=== PATIENT | female | born 1940 | race Caucasian/White ===

== ENCOUNTER 2022-12-08 15:07 | Inpatient (IN) | payer MEDICARE, BC ==
--- NOTE | 2022-12-08 15:17 | ED ---
General Adult HPI <Shirley Kaur - Last Filed: 12/08/22 15:17> <Huy Odell - Last Filed: 12/08/22 19:35> - General Stated complaint: Back pain Time Seen by Provider: 12/08/22 15:17 - History of Present Illness Initial comments: 82-year-old female presents to the emergency department with a chief complaint of chronic back pain. Denies any recent injury or trauma. (Shirley Kaur) This is an 82-year-old female presents emergency department stating that she's had chronic back pain but more recently she was having some physical therapy done and she had her knee pushed up towards her chest and she felt a pop in her back and her since that she's been having excruciating back pain to the point where she has pain running down both of her legs but mostly right leg. Patient states it so painful that she hasn't been drinking or eating because she is afraid she'll have to go to the bathroom and be unable to get up. Patient states she sleeps in a recliner chair and she sleeps forward to help relieve the pain in her back so she falls asleep laying across her own legs. Patient denies any other injury besides the injury occurring to her physical therapy. Patient denies any weakness but states there is pain in both legs going down the back. Patient states she had an MRI recently but does not have the results with her. Patient denies any fever chills. Patient has any dysuria hematuria urinary frequency. (Huy Odell) - Related Data Home Medications Medication Instructions Recorded Confirmed Levothyroxine Sodium [Synthroid] 75 mcg PO 11/19/22 Pioglitazone [Actos] 45 mg PO DAILY 11/19/22 11/19/22 amLODIPine BESYLATE/BENAZEPRIL 1 cap PO 11/19/22 [amLODIPine BESYLATE/BENAZEPRIL 5-10 mg] metFORMIN HCL [Metformin HCl] 500 mg PO 11/19/22 Allergies Allergy/AdvReac Type Severity Reaction Status Date / Time clindamycin Allergy Unknown Verified 12/08/22 15:18 gabapentin [From Neurontin] Allergy Unknown Verified 12/08/22 15:18 Sulfa (Sulfonamide Allergy Unknown Verified 12/08/22 15:18 Antibiotics) glue on teristrips Allergy Unknown Uncoded 12/08/22 15:18 Review of Systems ROS Other: All systems not noted in ROS Statement are negative. <Shirley Kaur - Last Filed: 12/08/22 15:17> ROS Other: All systems not noted in ROS Statement are negative. <Huy Odell - Last Filed: 12/08/22 19:35> ROS Statement: Those systems with pertinent positive or pertinent negative responses have been documented in the HPI. Past Medical History History of Any Multi-Drug Resistant Organisms: None Reported Smoking Status: Never smoker <Shirley Kaur - Last Filed: 12/08/22 15:17> General Exam <Huy Odell - Last Filed: 12/08/22 19:35> - General Exam Comments Initial Comments: GENERAL: Patient is well-developed and well-nourished. Patient is nontoxic and well- hydrated and is moderate distress. ENT: Neck is soft and supple. No significant lymphadenopathy is noted. Oropharynx is clear. Moist mucous membranes. Neck has full range of motion without eliciting any pain. EYES: The sclera were anicteric and conjunctiva were pink and moist. Extraocular movements were intact and pupils were equal round and reactive to light. Eyelids were unremarkable. PULMONARY: Unlabored respirations. Good breath sounds bilaterally. No audible rales r honchi or wheezing was noted. CARDIOVASCULAR: There is a regular rate and rhythm without any murmurs gallops or rubs. ABDOMEN: Soft and nontender with normal bowel sounds. SKIN: Skin is clear with no lesions or rashes and otherwise unremarkable. NEUROLOGIC: Patient is alert and oriented x3. Cranial nerves II through XII are grossly intact. Motor and sensory are also intact. Normal speech, volume and content. Symmetrical smile. MUSCULOSKELETAL: Normal extremities with adequate strength and full range of motion. 1+ edema bilaterally LYMPHATICS: No significant lymphadenopathy is noted PSYCHIATRIC: Normal psychiatric evaluation. [id number] (Huy Odell) Course Vital Signs 12/08/22 15:15 Temperature 97.6 F Pulse Rate 89 Respiratory 20 Rate Blood Pressure 165/85 O2 Sat by Pulse 97 Oximetry Medical Decision Making - Lab Data Result diagrams: 12/08/22 18:30 12/08/22 18:30 <Huy Odell - Last Filed: 12/08/22 19:35> - Medical Decision Making Was pt. sent in by a medical professional or institution (, JOSAFAT, LAUNCH ENGINEER, urgent care, hospital, or senior living...) When possible be specific @ -Dr. Espinoza sent the patient to be admitted Did you speak to anyone other than the patient for history (EMS, parent, family, police, friend...)? What history was obtained from this source @ -No Did you review nursing and triage notes (agree or disagree)? Why? @ -I reviewed and agree with nursing and triage notes Were old charts reviewed (outside hosp., previous admission, EMS record, old EKG, old radiological studies, urgent care reports/EKG's, senior living records)? Report findings @ -No old charts were reviewed Differential Diagnosis (chest pain, altered mental status, abdominal pain women, abdominal pain men, vaginal bleeding, weakness, fever, dyspnea, syncope, headache, dizziness, GI bleed, back pain, seizure, CVA, palpatations, mental health, musculoskeletal)? @ -Differential Back Pain: Strain, zoster, cauda equina syndrome, epidural abscess, vertebral osteomyelitis, discitis, fracture, subluxation, disc herniation, DJD, spinal stenosis, dissection, AAA, pancreatitis, peptic ulcer disease, pyelonephritis, kidney stone, this is not meant to be an all-inclusive list. EKG interpreted by me (3pts min.). @ -As above X-rays interpreted by me (1pt min.). @ -None done CT interpreted by me (1pt min.). @ -None done U/S interpreted by me (1pt. min.). @ -None done What testing was considered but not performed or refused? (CT, X-rays, U/S, labs)? Why? @ -None What meds were considered but not given or refused? Why? @ -None Did you discuss the management of the patient with other professionals (professionals i.e. , JOSAFAT, LAUNCH ENGINEER, lab, RT, psych nurse, social media director, fresh foods technician, teacher, chief risk officer, case folder)? Give summary @ -Spoke with Dr. Munoz he agreed to admit the patient admitted the patient wrote admitting orders Was smoking cessation discussed for >3mins.? @ -No Was critical care preformed (if so, how long)? @ -No Were there social determinants of health that impacted care today? How? (Homele ssness, low income, unemployed, alcoholism, drug addiction, transportation, low edu. Level, literacy, decrease access to med. care, [facility], rehab)? @ -No Was there de-escalation of care discussed even if they declined (Discuss DNR or withdrawal of care, Hospice)? DNR status @ -No What co-morbidities impacted this encounter? (DM, HTN, Smoking, COPD, CAD, Cancer, CVA, ARF, Chemo, Hep., AIDS, mental health diagnosis, sleep apnea, morbid obesity)? @ -None Was patient admitted / discharged? Hospital course, mention meds given and route, prescriptions, significant lab abnormalities, going to OR and other pertinent info. @ -Patient received Toradol Solu-Medrol as well as Dilaudid for her pain and helped her pain certainly. I spoke with [facility] hospitalist agreed to admit the patient admitted. I consulted Dr. Herron to evaluate the patient. I spoke with these diminished Undiagnosed new problem with uncertain prognosis? @ -No Drug Therapy requiring intensive monitoring for toxicity (Heparin, Nitro, Insulin, Cardizem)? @ -No Were any procedures done? @ -No Diagnosis/symptom? @ -Intractable lower back pain Acute, or Chronic, or Acute on Chronic? @ -Acute on chronic Uncomplicated (without systemic symptoms) or Complicated (systemic symptoms)? @ -Complicated Side effects of treatment? @ -No Exacerbation, Progression, or Severe Exacerbation? @ -No Poses a threat to life or bodily function? How? (Chest pain, [place], [place], pneumonia, PE, COPD, DKA, ARF, appy, cholecystitis, CVA, Diverticulitis, Homicidal, Suicidal, threat to staff... and all critical care pts) @ -No (Huy Odell) - Lab Data Lab Results 12/08/22 12/08/22 12/08/22 Range/Units 17:54 18:30 18:30 WBC 4.3 (3.8-10.6) k/uL RBC 4.21 (3.80-5.40) m/uL Hgb 13.7 (11.4-16.0) gm/dL Hct 41.3 (34.0-46.0) % MCV 98.0 (80.0-100.0) fL MCH 32.5 (25.0-35.0) pg MCHC 33.1 (31.0-37.0) g/dL RDW 13.9 (11.5-15.5) % Plt Count 237 (150-450) k/uL MPV 7.8 Neutrophils % 70 % Lymphocytes % 17 % Monocytes % 8 % Eosinophils % 2 % Basophils % 1 % Neutrophils # 3.1 (1.3-7.7) k/uL Lymphocytes # 0.7 L (1.0-4.8) k/uL Monocytes # 0.3 (0-1.0) k/uL Eosinophils # 0.1 (0-0.7) k/uL Basophils # 0.0 (0-0.2) k/uL Sodium 139 (137-145) mmol/L Potassium 4.1 (3.5-5.1) mmol/L Chloride 104 (98-107) mmol/L Carbon Dioxide 31 H (22-30) mmol/L Anion Gap 4 mmol/L BUN 18 H (7-17) mg/dL Creatinine 0.66 (0.52-1.04) mg/dL Est GFR (CKD-EPI)AfAm >90 (>60 ml/min/1.73 sqM) Est GFR (CKD-EPI)NonAf 81 (>60 ml/min/1.73 sqM) Glucose 111 H (74-99) mg/dL Calcium 9.6 (8.4-10.2) mg/dL Total Bilirubin 0.9 (0.2-1.3) mg/dL AST 39 H (14-36) U/L ALT 27 (4-34) U/L Alkaline Phosphatase 55 (38-126) U/L Total Protein 7.0 (6.3-8.2) g/dL Albumin 4.1 (3.5-5.0) g/dL Urine Color Light Yellow Urine Appearance Clear (Clear) Urine pH 6.5 (5.0-8.0) Ur Specific [place] 1.008 (1.001-1.035) Urine Protein Negative (Negative) Urine Glucose (UA) Negative (Negative) Urine Ketones Negative (Negative) Urine Blood Negative (Negative) Urine Nitrite Negative (Negative) Urine Bilirubin Negative (Negative) Urine Urobilinogen <2.0 (<2.0) mg/dL Ur Leukocyte Esterase Negative (Negative) Disposition <Shirley Kaur - Last Filed: 12/08/22 15:17> Time of Disposition: 19:35 <Huy Odell - Last Filed: 12/08/22 19:35> Clinical Impression: Intractable back pain Disposition: ADMITTED IP TO THIS HOSP Referrals: Adriano Espinoza MD [Primary Care Provider] - 1-2 days
[2022-12-08 18:08] LABS: Appearance,Urine Clear (Clear); Bilirubin,Urine Negative (Negative); Blood,Urine Negative (Negative); Color,Urine Light Yellow; Glucose,Urine (UA) Negative (Negative); Ketones,Urine Negative (Negative); Leukocyte Esterase,Urine Negative (Negative); Nitrite,Urine Negative (Negative); PH, Urine 6.5 (5.0-8.0); Protein,Urine Negative (Negative); Specific Gravity,Urine 1.008 (1.001-1.035); Urobilinogen,Urine <2.0 mg/dL (<2.0)
[2022-12-08] MEDS ORDERED: KETOROLAC 15 MG/ML 1 ML VIAL IVP STA (18:18)
[2022-12-08] MEDS ORDERED: HYDROmorphone 0.5 MG/0.5 ML SYRINGE IVP STA (18:18)
[2022-12-08 18:47] LABS: Basophils % (A) 1 %; Eosinophils # (A) 0.1 k/uL (0-0.7); Eosinophils % (A) 2 %; HCT 41.3 % (34.0-46.0); HGB 13.7 gm/dL (11.4-16.0); Lymphocytes # (A) 0.7 k/uL (1.0-4.8); Lymphocytes % (A) 17 %; MCH 32.5 pg (25.0-35.0); MCHC 33.1 g/dL (31.0-37.0); Mean Platelet Volume 7.8; Monocytes # (A) 0.3 k/uL (0-1.0); Monocytes % (A) 8 %; Neutrophils # (A) 3.1 k/uL (1.3-7.7); Neutrophils % (A) 70 %; Platelet Count 237 k/uL (150-450); RBC 4.21 m/uL (3.80-5.40); RDW 13.9 % (11.5-15.5); WBC 4.3 k/uL (3.8-10.6)
[2022-12-08 19:08] LABS: ALT 27 U/L (4-34); AST 39 U/L (14-36); African American GFR (CKD) >90 (>60 ml/min/1.73 sqM); Albumin 4.1 g/dL (3.5-5.0); Alkaline Phosphatase 55 U/L (38-126); Anion Gap 4 mmol/L; Blood Urea Nitrogen 18 mg/dL (7-17); Calcium 9.6 mg/dL (8.4-10.2); Carbon Dioxide 31 mmol/L (22-30); Chloride 104 mmol/L (98-107); Glucose 111 mg/dL (74-99); Non-African American GFR(CKD) 81 (>60 ml/min/1.73 sqM); Potassium 4.1 mmol/L (3.5-5.1); Sodium 139 mmol/L (137-145); Total Bilirubin 0.9 mg/dL (0.2-1.3)
[2022-12-08] MEDS ORDERED: methylPREDNISolone SOD SUCCI 125 MG/2 ML VIAL IV STA (19:31)
[2022-12-08] MEDS ORDERED: SODIUM CHLORIDE 0.9% 1,000 ML IV ONE (19:36)
[2022-12-09] MEDS: KETOROLAC 15 MG/ML 1 ML VIAL IVP SCH ×5 (00:48→23:28)
[2022-12-09] MEDS ORDERED: traMADol 50 MG TAB PO PRN (01:00)
[2022-12-09] MEDS ORDERED: DEXTROSE 50% SYRINGE 50 ML IVP PRN ×2 (01:02)
[2022-12-09] MEDS: LEVOTHYROXINE 75 MCG TAB PO SCH (06:34)
[2022-12-09] MEDS ORDERED: FAMOTIDINE 20 MG/2 ML VIAL IV SCH (09:00)
[2022-12-09] MEDS: INSULIN ASPART (NovoLOG) 100 UNIT/ML VIAL SQ SCH ×4 (09:00→21:38)
[2022-12-09 09:01] LABS: Glucose,Whole Blood 136 mg/dL (70-110)
[2022-12-09] MEDS: amLODIPine 5 MG TAB PO SCH (09:13)
[2022-12-09] MEDS: HEPARIN SODIUM,PORCINE/PF 5,000 UNIT/0.5 ML SYRINGE SQ SCH ×2 (09:13→21:34)
[2022-12-09] MEDS: metFORMIN 500 MG TAB PO SCH ×2 (09:13→21:35)
[2022-12-09] MEDS: LOSARTAN 50 MG TAB PO SCH (09:13)
[2022-12-09] MEDS: CHOLECALCIFEROL 25 MCG (1000 IU) TABLET PO SCH ×2 (09:13→21:36)
--- NOTE | 2022-12-09 09:13 | P.CNOR ---
History of Present Illness - [facility] Consult date: 12/09/22 Requesting physician: Huy Odell Consult reason: low back pain, other (Bilateral lower extremity radiculopathy) History of present illness: Patient is a very pleasant 82-year-old female who is seen and examined bedside for further evaluation of her lumbar spine. She states she has a history of a right total knee arthroplasty performed by Dr. Menezes in January 2022. She had some difficulty working through physical therapy following surgery. She was discharged to a rehabilitation facility but did not get to work through therapy due to Covid. She was discharged home. She's been trying to work through some exercises at home. She's been working through home physical therapy. She states a couple weeks ago while working with therapy her legs were brought up towards her chest and she felt a pop at her lumbar spine. Since that time she has had severe and worsening low back pain with pain radiating down the posterior bilateral lower extremities greater on the right than the left. She is difficulty with standing due to her back pain. She has to lean forward to al leviate some of her pain. She lives independently without difficulty until exacerbation of her symptoms. She does not have specific exacerbation of pain with coughing or sneezing. Her pain is better controlled at rest. Her back pain is exacerbated with increased activities. She does feel generally weak in her lower extremities greater on the right than the left. She has difficulty ambulating steps. She follows with her primary care provider, Dr. Espinoza. She saw her in the office yesterday and was sent to the hospital for admission and further evaluation. She's not had any imaging performed since her presentation to the emergency department. She states she is known have lumbar spinal stenosis and chronic low back pain. She recently had a lumbar MRI imaging performed in October 2022. She does not have this imaging with her. She was being referred to the pain management clinic here [facility] with her appointment set for 12/18/2022. She does state that the exacerbation of her symptoms with a pop in her back did occur following her lumbar MRI. She has been taking tramadol in the outpatient setting for pain control. She does admit to diabetes mellitus. She has a history of total knee arthroplasty performed on the left knee as well. Past Medical History Past Medical History: Diabetes Mellitus, Hypertension Additional Past Medical History / Comment(s): Back problems History of Any Multi-Drug Resistant Organisms: None Reported Past Surgical History: Hernia Repair, Joint Replacement, Orthopedic Surgery Additional Past Surgical History / Comment(s): Back Smoking Status: Never smoker Medications and Allergies Home Medications Medication Instructions Recorded Confirmed Type Levothyroxine Sodium [Synthroid] 75 mcg PO DAILY 11/19/22 12/08/22 History Pioglitazone [Actos] 45 mg PO DAILY 11/19/22 12/08/22 History metFORMIN HCL [Metformin HCl] 500 mg PO BID 11/19/22 12/08/22 History Acetaminophen [Tylenol 8 Hour] 650 mg PO Q6H PRN 12/08/22 12/08/22 History Ascorbic Acid [Vitamin C] 500 mg PO DAILY 12/08/22 12/08/22 History Calcium Carbonate [Calcium] 600 mg PO BID 12/08/22 12/08/22 History Cholecalciferol [Vitamin D3 (25 25 mcg PO BID 12/08/22 12/08/22 History Mcg = 1000 Iu)] Losartan Potassium 100 mg PO DAILY 12/08/22 12/08/22 History Meloxicam [Mobic] 7.5 mg PO BID 12/08/22 12/08/22 History Multivitamins, Thera [Multivitamin 1 tab PO DAILY 12/08/22 12/08/22 History (formulary)] Niacin [Plain Niacin] 500 mg PO HS 12/08/22 12/08/22 History Pyridoxine HCl (Vitamin B6) 100 mg PO DAILY 12/08/22 12/08/22 History [Vitamin B-6] Ubidecarenone [Coenzyme Q10] 100 mg PO DAILY 12/08/22 12/08/22 History Vitamin E (Dl,Tocopheryl Acet) 800 unit PO DAILY 12/08/22 12/08/22 History [Vitamin E (400 Iu = 180 mg)] amLODIPine [Norvasc] 5 mg PO DAILY 12/08/22 12/08/22 History timoloL maleate [timoloL maleate 1 applic BOTH EYES BID 12/08/22 12/08/22 History 0.25%] traMADol HCL 50 mg PO Q8H PRN 12/08/22 12/08/22 History Allergies Allergy/AdvReac Type Severity Reaction Status Date / Time clindamycin Allergy Anaphylaxis Verified 12/08/22 20:14 gabapentin [From Neurontin] Allergy Unknown Verified 12/08/22 20:14 pseudoephedrine Allergy Verified 12/08/22 20:14 [From Sudafed] Sulfa (Sulfonamide Allergy Unknown Verified 12/08/22 20:14 Antibiotics) glue on teristrips Allergy Unknown Uncoded 12/08/22 15:18 Physical Examination Physical exam: Patient is awake, alert, and oriented 3 Vital signs stable Good chest excursion with deep inspiration and expiration Abdomen soft nontender Examination of lumbar spine reveals skin is intact with no abrasions, lacer ations, or bruises; no erythema, purulence or signs of infection Significant pain with palpation along the midline of the lower lumbar spine near the lumbosacral junction Dorsiflexion, plantarflexion, and extensor hallucis longus positive sustained bilaterally Patient is unable to lift legs off the bed independently. Evidence of well-healed incisions over the anterior knees No lower extremity hyperreflexia bilaterally Negative Lasegue's test bilaterally No signs or symptoms of DVT; no calf pain No pain with internal and external rotation of the hips bilaterally Neurovascularly intact Results - Labs Labs: Abnormal Lab Results - Last 24 Hours (Table) 12/08/22 12/08/22 12/09/22 Range/Units 18:30 18:30 09:00 Lymphocytes # 0.7 L (1.0-4.8) k/uL Carbon Dioxide 31 H (22-30) mmol/L BUN 18 H (7-17) mg/dL Glucose 111 H (74-99) mg/dL POC Glucose (mg/dL) 136 H (70-110) mg/dL AST 39 H (14-36) U/L H & H 12/08/22 Range/Units 18:30 Hgb 13.7 (11.4-16.0) gm/dL Hct 41.3 (34.0-46.0) % Result Diagrams: 12/08/22 18:30 12/08/22 18:30 Assessment and Plan Assessment: Assessment: Acute on chronic low back pain Difficulty with ambulation due to lower extremity generalized weakness and leg pain Bilateral lower extremity radiculopathy Neurogenic claudication Reported known spinal stenosis Exacerbation of pain following home exercises with physical therapy Diabetes mellitus Obesity Hypothyroidism History of right total knee arthroplasty in January 2022 History of previous left total knee arthroplasty (1) Acute exacerbation of chronic low back pain Current Visit: Yes Status: Acute Code(s): M54.50 - LOW BACK PAIN, UNSPECIFIED; G89.29 - OTHER CHRONIC PAIN SNOMED Code(s): 519988387 (2) Neurogenic claudication Current Visit: Yes Status: Acute Code(s): R29.818 - OTHER SYMPTOMS AND SIGNS INVOLVING THE NERVOUS SYSTEM SNOMED Code(s): 590804878 (3) Radiculopathy with lower extremity symptoms Current Visit: Yes Status: Acute Code(s): M54.10 - RADICULOPATHY, SITE UNSPECIFIED SNOMED Code(s): 74322025 (4) Generalized weakness Current Visit: Yes Status: Acute Code(s): R53.1 - WEAKNESS SNOMED Code(s): 07439218 (5) Diabetes mellitus Current Visit: Yes Status: Acute Code(s): E11.9 - TYPE 2 DIABETES MELLITUS WITHOUT COMPLICATIONS SNOMED Code(s): 43384775 (6) Obesity Current Visit: Yes Status: Acute Code(s): E66.9 - OBESITY, UNSPECIFIED SNOMED Code(s): 350197451 (7) Hypothyroidism Current Visit: Yes Status: Acute Code(s): E03.9 - HYPOTHYROIDISM, UNSPECIFIED SNOMED Code(s): 01927302 (8) Intractable back pain Current Visit: Yes Status: Acute Code(s): M54.9 - DORSALGIA, UNSPECIFIED SNOMED Code(s): 590032159 Plan: Plan: 1. Patient is known have chronic low back pain and has an exacerbation of her pain following home therapy exercises a couple weeks ago. Her symptoms have continued to worsen since that time. She states she did have a pop at her lumbar spine with significant pain at the time of working through therapy. She has pain that radiates in the bilateral posterior lower extremities greater on the right and the left. She's had increased difficulty with pain control and ambulation. Her back pain has been significant and is her most significant symptom. Her pain is better controlled at rest and is exacerbated with increased activities. She previously had lumbar MRI imaging performed in October 2022 at [facility]. She was planning for further evaluation with pain management here at [facility] on 12/18/2022. No imaging was taken since her admission to the hospital. Currently, we will plan to obtain CT imaging of the lumbar spine for further evaluation to rule out fracture and further assess her spinal canal. We will plan for consultation with pain management. We did discuss if her CT imaging does not show evidence of fracture. Plan to have her to proceed forward with conservative treatment with pain we did discuss she will have a fracture of her lumbar spine would begin conservative treatment with bracing. We'll plan to review her CT imaging was performed L plan to proceed forward with a plan of care according to her CT results. Consultation will be placed with pain management here [facility]. 2. Patient will continue to be seen and examined by medicine for her other medical diagnoses. We will not currently plan to prescribe steroid medication during her admission to the hospital due to her diabetes mellitus and also wanting to rule out fracture. Patient may continue with medications as pre scribed as needed for pain control.
[2022-12-09] MEDS: CALCIUM CARBONATE 500 MG CHEWABLE PO SCH ×2 (09:14→21:38)
[2022-12-09] MEDS: HYDROmorphone 0.5 MG/0.5 ML SYRINGE IVP PRN ×2 (09:15→18:25)
[2022-12-09] MEDS ORDERED: DEXAMETHASONE SOD PHOSPHATE 10 MG/ML 1 ML VIAL IVP STA (10:21)
[2022-12-09] MEDS ORDERED: HYDROmorphone 1 MG/ML 1 ML SYRINGE IVP STA (10:21)
[2022-12-09] MEDS: PIOGLITAZONE 45 MG TAB PO SCH (10:30)
[2022-12-09] MEDS: TIMOLOL 0.25% OPHTH DROPS 5 ML BTL BOTH EYES SCH ×2 (10:31→21:35)
[2022-12-09] MEDS: PYRIDOXINE 50 MG TAB PO SCH (10:31)
--- NOTE | 2022-12-09 10:33 | P.HPIM ---
History of Present Illness This is a pleasant 82 results female with past medical history of Diabetes Mellitus, Hypertension, she is a patient of Dr. fu Patient presents because of back pain. Patient said that she has chronic low back pain and she went for physical therapy 3 weeks ago, about 2 weeks ago and the second consideration her orthopedic physical therapist try to increase her range of her movement so there is her leg up to the head and immediately she felt a pop sound in the lower back and more severe pain and lower back, radiating to both legs more on the right side than the left side, radiating down to the heel. With no associated numbness or tingling. She denies perineal anesthesia and she denies losing control of her bowel or urine control. About 20 to go while her daughter was visiting her, she almost fell to the chair, says that she is feeling more weakness in her legs, and again she says that she feels her right leg is weaker than the left. Her right leg pain and weakness today is with the same severity as one week earlier , she went to see her PCP Dr. Fu yesterday who referred her to the emergency room. She states that she has history of left neck pain when turning her head to the left side about 6 months ago and at times she had MRI of the cervical spine with her PCP Dr. Fu and she's been told she has a pinched nerve. Currently she still have some dull headache moderate in severity but no blurred vision or slurred speech, no tinnitus, no other new weakness or numbness. Patient follows up with pain in clinic as well, she states that she supposed to follow-up with pain doctor for epidural steroid injection and her appointment was on January 18 and was moved to December 18 because of her worsening pain and before coming to the hospital 0 Patient also noticed to live by herself as her daughters live far away, and she has difficulty taking care of herself because of that. She denies any other specific symptoms. She denies chest pain dyspnea or coughing. No abdominal pain vomiting and diarrhea, no dysuria urgency or burning. No dizziness or further weakness or numbness. Patient usually feels colder than usual. She denies smoking alcohol or illicit drugs Vitals looks stable She has unremarkable CBC, BMP, liver enzymes. Urine analysis is negative. Patient given pain medication of Toradol and Dilaudid and admitted to the hospital. With orthopedic team consulted Also she was started on normal saline Patient was seen by orthopedic team and sure if he had CAT scan of the lumbar spine with result is pending. Review of Systems Review of systems CONSTITUTIONAL: No fever, no malaise, no fatigue. HEENT: No recent visual problems or hearing problems. Denied any sore throat. CARDIOVASCULAR: No orthopnea, PND, no palpitations, no syncope. PULMONARY: No shortness of breath, no cough, no hemoptysis. GASTROINTESTINAL: No diarrhea, no nausea, no vomiting, no abdominal pain. Normoactive bowel sounds. NEUROLOGICAL: No headaches, no weakness, no numbness. HEMATOLOGICAL: Denies any bleeding or petechiae. GENITOURINARY: Denies any burning micturition, frequency, or urgency. -MUSCULOSKELETAL/RHEUMATOLOGICAL: As above, review the above note ENDOCRINE: Denies any polyuria or polydipsia. Past Medical History Past Medical History: Diabetes Mellitus, Hypertension Additional Past Medical History / Comment(s): Back problems History of Any Multi-Drug Resistant Organisms: None Reported Past Surgical History: Hernia Repair, Joint Replacement, Orthopedic Surgery Additional Past Surgical History / Comment(s): Back Smoking Status: Never smoker Medications and Allergies Home Medications Medication Instructions Recorded Confirmed Type Levothyroxine Sodium [Synthroid] 75 mcg PO DAILY 11/19/22 12/08/22 History Pioglitazone [Actos] 45 mg PO DAILY 11/19/22 12/08/22 History metFORMIN HCL [Metformin HCl] 500 mg PO BID 11/19/22 12/08/22 History Acetaminophen [Tylenol 8 Hour] 650 mg PO Q6H PRN 12/08/22 12/08/22 History Ascorbic Acid [Vitamin C] 500 mg PO DAILY 12/08/22 12/08/22 History Calcium Carbonate [Calcium] 600 mg PO BID 12/08/22 12/08/22 History Cholecalciferol [Vitamin D3 (25 25 mcg PO BID 12/08/22 12/08/22 History Mcg = 1000 Iu)] Losartan Potassium 100 mg PO DAILY 12/08/22 12/08/22 History Meloxicam [Mobic] 7.5 mg PO BID 12/08/22 12/08/22 History Multivitamins, Thera [Multivitamin 1 tab PO DAILY 12/08/22 12/08/22 History (formulary)] Niacin [Plain Niacin] 500 mg PO HS 12/08/22 12/08/22 History Pyridoxine HCl (Vitamin B6) 100 mg PO DAILY 12/08/22 12/08/22 History [Vitamin B-6] Ubidecarenone [Coenzyme Q10] 100 mg PO DAILY 12/08/22 12/08/22 History Vitamin E (Dl,Tocopheryl Acet) 800 unit PO DAILY 12/08/22 12/08/22 History [Vitamin E (400 Iu = 180 mg)] amLODIPine [Norvasc] 5 mg PO DAILY 12/08/22 12/08/22 History timoloL maleate [timoloL maleate 1 applic BOTH EYES BID 12/08/22 12/08/22 History 0.25%] traMADol HCL 50 mg PO Q8H PRN 12/08/22 12/08/22 History Allergies Allergy/AdvReac Type Severity Reaction Status Date / Time clindamycin Allergy Anaphylaxis Verified 12/08/22 20:14 gabapentin [From Neurontin] Allergy Unknown Verified 12/08/22 20:14 pseudoephedrine Allergy Verified 12/08/22 20:14 [From Sudafed] Sulfa (Sulfonamide Allergy Unknown Verified 12/08/22 20:14 Antibiotics) glue on teristrips Allergy Unknown Uncoded 12/08/22 15:18 Physical Exam Vitals: Vital Signs Temp Pulse Resp BP Pulse Ox 12/09/22 08:57 98 18 125/76 97 12/09/22 06:33 75 14 137/76 95 12/09/22 04:25 84 14 94 L 12/09/22 01:38 89 18 95 12/08/22 15:15 97.6 F 89 20 165/85 97 Intake and Output 12/08/22 12/09/22 12/09/22 22:59 06:59 14:59 Other: Weight 108.862 kg -GENERAL: The patient is alert and oriented x3, not in any acute distress. Morbidly obese HEENT: Pupils are round and equally reacting to light. EOMI. No scleral icterus. No conjunctival pallor. Normocephalic, atraumatic. No pharyngeal erythema. No thyromegaly. CARDIOVASCULAR: S1 and S2 present. No murmurs, rubs, or gallops. PULMONARY: Chest is clear to auscultation, no wheezing or crackles. ABDOMEN: Soft, nontender, nondistended, normoactive bowel sounds. No palpable organomegaly. MUSCULOSKELETAL: No joint swelling or deformity. EXTREMITIES: No cyanosis, clubbing, or pedal edema. -NEUROLOGICAL: Cranial nerves are grossly intact. Rest of exam is limited by patient pain, she has some limited addressing her right leg secondary to pain, there was no more mild weakness on the right lower extremity. There is mild decreased sensation in the left lower extremity and leak, meningeal signs are absent. SKIN: No rashes. no petechiae. Results CBC & Chem 7: 12/08/22 18:30 12/08/22 18:30 Labs: Abnormal Lab Results - Last 24 Hours (Table) 12/08/22 12/08/22 12/09/22 Range/Units 18:30 18:30 09:00 Lymphocytes # 0.7 L (1.0-4.8) k/uL Carbon Dioxide 31 H (22-30) mmol/L BUN 18 H (7-17) mg/dL Glucose 111 H (74-99) mg/dL POC Glucose (mg/dL) 136 H (70-110) mg/dL AST 39 H (14-36) U/L Assessment and Plan Assessment: acute On chronic low back pain Radiating to both lower extremity, more on the right side. With suspected weakness, presents on admission Diabetes Mellitus Hypertension History of left neck pain and pinched nerve about 6 months ago Morbid Obesity with BMI of 39.9 Plan: Dexamethasone. 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 Continue same treatment. Continue with symptomatic treatment. Resume home medication. Monitor labs and vitals. DVT and GI prophylaxis. Further recommendations as per clinical course of the patient DVT prophylaxis: Subcutaneous heparin GI Prophylaxis: Pepcid PT/OT: Pending (Deferred ) Prognosis is guarded
--- NOTE | 2022-12-09 10:39 | CT ---
EXAMINATION TYPE: CT lumbar spine wo con CT DLP: 1862.7 mGycm, Automated exposure control for dose reduction was used. DATE OF EXAM: 12/09/2022 9:44 AM COMPARISON: None. CLINICAL INDICATION:Female, 82 years old with history of Acute on chronic LBP, intractable LBP, BL LE Radic; PHH, lower back pain TECHNIQUE: Multiple axial images were obtained from the midportion of T11 through the sacroiliac coco nts. Soft tissue and bone windows in coronal and sagittal planes were obtained and reviewed. FINDINGS: Alignment: There are 5 lumbar type vertebral bodies. Grade 1 anterolisthesis of L3 on L4 without evid ence of pars defects. \ Bone: Diffuse bone demineralization. There is vertebral body height loss of the L5 vertebral body of approximately 10%. No retropulsion identified. No paraspinal edema identified. Degenerative changes of both SI joints. Multilevel facet arthropathy. Discs: Multilevel degenerative disc disease with disc space narrowing, endplate process, vacuum disc disease, and anterior osteophytosis. T12-L1: No spinal canal or neural foraminal stenosis is identified. L1-L2: Broad-based disc bulge without significant central canal stenosis. The neural foramina appear patent. L2-L3: Broad-based disc bulge with a least mild spinal canal stenosis. Bilateral facet arthropathy. T he neural foramen are patent bilaterally. L3-L4: Grade 1 anterolisthesis of L3 on L4 with uncovering of the disc. Moderate central canal stenos is. Bilateral facet arthropathy. Mild to moderate bilateral neural foraminal stenosis. L4-L5: Broad-based disc bulge with at least mild central canal stenosis. Bilateral facet arthropathy . Moderate bilateral neural foraminal stenosis. L5-S1: Posterior disc osteophyte complex with at least mild central canal stenosis. Bilateral facet a rthropathy with mild left neural foraminal stenosis. Mild bilateral neural foraminal stenosis. Other: Vascular calcification of the aorta and its branches. No abdominal aortic aneurysm identified. Left renal 1.4 cm hypodensity, likely cyst. IMPRESSION: 1. Age-indeterminate wedge compression deformity of the S1 vertebral body. Correlation with point ten derness is recommended. Consider further evaluation with MRI lumbar spine. 2. Moderate multilevel degenerative disc disease and osteoarthritic changes as described above. 3. Grade 1 anterolisthesis of L3 on L4.
[2022-12-09] MEDS: VITAMIN E (DL,TOCOPHERYL ACET) 400 UNIT (180 MG) CAP PO SCH (10:47)
--- NOTE | 2022-12-09 12:19 | P.PAINCN ---
History of Present Illness - Reason for Consult Consult date: 12/09/22 - History of Present Illness This is 82 years old female with a chronic history of severe low back pain, patient was seen recently in the pain clinic at [facility] and she was scheduled to have bilateral RFA of the medial branch lumbar area, patient had multiple interventional pain procedure done at [facility], and the last procedure was done was RFA of the medial branch lumbar area at L4 5 and L5-S1 which was done in May 2022, currently patient complaining of severe low back pain with radiation to the lower extremity mainly to the right lower extremity, she had some numbness and tingling sensation, she has difficulty ambulating secondary to intensity of the pain, the pain is c onstant and increases with any activity, she feels some weakness in her right lower extremity Past Medical History Past Medical History: Diabetes Mellitus, Hypertension Additional Past Medical History / Comment(s): Back problems History of Any Multi-Drug Resistant Organisms: None Reported Past Surgical History: Hernia Repair, Joint Replacement, Orthopedic Surgery Additional Past Surgical History / Comment(s): Back Smoking Status: Never smoker Medications and Allergies Home Medications Medication Instructions Recorded Confirmed Type Levothyroxine Sodium [Synthroid] 75 mcg PO DAILY 11/19/22 12/08/22 History Pioglitazone [Actos] 45 mg PO DAILY 11/19/22 12/08/22 History metFORMIN HCL [Metformin HCl] 500 mg PO BID 11/19/22 12/08/22 History Acetaminophen [Tylenol 8 Hour] 650 mg PO Q6H PRN 12/08/22 12/08/22 History Ascorbic Acid [Vitamin C] 500 mg PO DAILY 12/08/22 12/08/22 History Calcium Carbonate [Calcium] 600 mg PO BID 12/08/22 12/08/22 History Cholecalciferol [Vitamin D3 (25 25 mcg PO BID 12/08/22 12/08/22 History Mcg = 1000 Iu)] Losartan Potassium 100 mg PO DAILY 12/08/22 12/08/22 History Meloxicam [Mobic] 7.5 mg PO BID 12/08/22 12/08/22 History Multivitamins, Thera [Multivitamin 1 tab PO DAILY 12/08/22 12/08/22 History (formulary)] Niacin [Plain Niacin] 500 mg PO HS 12/08/22 12/08/22 History Pyridoxine HCl (Vitamin B6) 100 mg PO DAILY 12/08/22 12/08/22 History [Vitamin B-6] Ubidecarenone [Coenzyme Q10] 100 mg PO DAILY 12/08/22 12/08/22 History Vitamin E (Dl,Tocopheryl Acet) 800 unit PO DAILY 12/08/22 12/08/22 History [Vitamin E (400 Iu = 180 mg)] amLODIPine [Norvasc] 5 mg PO DAILY 12/08/22 12/08/22 History timoloL maleate [timoloL maleate 1 applic BOTH EYES BID 12/08/22 12/08/22 History 0.25%] traMADol HCL 50 mg PO Q8H PRN 12/08/22 12/08/22 History Allergies Allergy/AdvReac Type Severity Reaction Status Date / Time clindamycin Allergy Anaphylaxis Verified 12/08/22 20:14 gabapentin [From Neurontin] Allergy Unknown Verified 12/08/22 20:14 pseudoephedrine Allergy Verified 12/08/22 20:14 [From Sudafed] Sulfa (Sulfonamide Allergy Unknown Verified 12/08/22 20:14 Antibiotics) glue on teristrips Allergy Unknown Uncoded 12/08/22 15:18 Physical Exam Vitals: Vital Signs Temp Pulse Resp BP Pulse Ox 12/09/22 10:00 96.3 F L 86 18 129/84 95 12/09/22 08:57 98 18 125/76 97 12/09/22 06:33 75 14 137/76 95 12/09/22 04:25 84 14 94 L 12/09/22 01:38 89 18 95 12/08/22 15:15 97.6 F 89 20 165/85 97 Intake and Output 12/08/22 12/09/22 12/09/22 22:59 06:59 14:59 Other: Weight 108.862 kg Physical Examinations : -Constitutiona : Cooperative , not in acute distress . -HEENT : nech : supple , no Lymphadenopathy , normal thyroid size . : eyes : no ptosis , no icterus, no photophobia . - neurologic : Cranial nerve II to XII intact , no focal neurological deffecit . -psychatric : alert , oriented X 3 , appropriate affect , intact judgment and insight . -Lymphatic : no Lymphadenopathy . - musculoskeltal : Lumber spine moter stegnth lower extremities ,thigh and legs 3-4/5 Right side , 4/5 Left side deep tendon reflexes : normal Knee Jerk , normal ankle Jerk lumber facet Loading Test =positive Right , positive Left Range of motion of the lumbar spine Flexion 30 degrees, extension 10 degrees strait leg raising test = positive at 30 degree Fabere test= positive Right , and positive LT . Sever tenderness over the Sacroiliac joint on the Right , and Left sides Results CBC & Chem 7: 12/08/22 18:30 12/08/22 18:30 Labs: Abnormal Lab Results - Last 24 Hours (Table) 12/08/22 12/08/22 12/09/22 Range/Units 18:30 18:30 09:00 Lymphocytes # 0.7 L (1.0-4.8) k/uL Carbon Dioxide 31 H (22-30) mmol/L BUN 18 H (7-17) mg/dL Glucose 111 H (74-99) mg/dL POC Glucose (mg/dL) 136 H (70-110) mg/dL AST 39 H (14-36) U/L Comments: MRI of the lumbar spine = multilevel lumbar degenerative disc disease multilevel lumbar facet arthropathy and lumbar spinal stenosis Assessment and Plan Plan: Assessment and plan= acute on chronic low back pain secondary to lumbar degenerative disc disease , lumbar spondylosis with lumbar facet arthropathy , lumbar spinal stenosis, lumbar radiculopathy Patient had multiple pain procedure done at [facility] [place] , and she has RFA of the medial branch lumbar area done in May 2022 and she had with the result. Patient will be good candidate to have lumbar epidural steroid injection at L5-S1 right paramedian approach, and in the future we can do outpatient RFA medial branch lumbar area, at L4 5, L5-S1. Seizure risk and benefits discussed with the patient she agreed with the preceding Time with Patient: Less than 30 PQRS Measure Charge Sheet PQRS Narrative: Blood Pressure 129/84 Pain Intensity 9 Pain Scale Used Numeric (1 - 10) Scale Used Numeric (1 - 10) Hx Alcohol Use (MH) No Home Medications: Ambulatory Orders Levothyroxine Sodium [Synthroid] 75 mcg PO DAILY 11/19/22 Pioglitazone [Actos] 45 mg PO DAILY 11/19/22 metFORMIN HCL [Metformin HCl] 500 mg PO BID 11/19/22 Acetaminophen [Tylenol 8 Hour] 650 mg PO Q6H PRN 12/08/22 Ascorbic Acid [Vitamin C] 500 mg PO DAILY 12/08/22 Calcium Carbonate [Calcium] 600 mg PO BID 12/08/22 Cholecalciferol [Vitamin D3 (25 Mcg = 1000 Iu)] 25 mcg PO BID 12/08/22 Losartan Potassium 100 mg PO DAILY 12/08/22 Meloxicam [Mobic] 7.5 mg PO BID 12/08/22 Multivitamins, Thera [Multivitamin (formulary)] 1 tab PO DAILY 12/08/22 Niacin [Plain Niacin] 500 mg PO HS 12/08/22 Pyridoxine HCl (Vitamin B6) [Vitamin B-6] 100 mg PO DAILY 12/08/22 Ubidecarenone [Coenzyme Q10] 100 mg PO DAILY 12/08/22 Vitamin E (Dl,Tocopheryl Acet) [Vitamin E (400 Iu = 180 mg)] 800 unit PO DAILY 0 12/08/22 amLODIPine [Norvasc] 5 mg PO DAILY 12/08/22 timoloL maleate [timoloL maleate 0.25%] 1 applic BOTH EYES BID 12/08/22 traMADol HCL 50 mg PO Q8H PRN 12/08/22
--- NOTE | 2022-12-09 13:03 | P.PN ---
Progress Note - Text Progress Note Date: 12/09/22 Orthopedic spine: History of present illness: Patient is seen and examined at bedside for follow-up evaluation in regards to her lumbar spine and emergency room #13. She has not had change in her symptoms since being seen and examined this morning. Patient underwent CT imaging of the lumbar spine today. She was found to have an L5 fracture. On physical examination, she does have pain with palpation along the midline of the lower lumbar spine in the lumbosacral junction. This pain correlates well with her fracture visualized on CT imaging. She also states her low back pain has been severe in her most significant symptom over the past couple weeks after having the popping sensation in her lumbar spine while working with home therapy. Currently, we will plan to treat her L5 compression fracture deformity with conservative care. At this time we'll plan for bracing. A prescription has been written and provided to case management for an Exos LSO brace. Once this brace is delivered and fitted appropriately, patient should wear this brace while sitting upright at greater than 45, during increase activities, during ambulation. She may remain in bed until this brace is delivered and fitted appropriately. She is encouraged to work with physical therapy once this brace is delivered and fitted appropriately. Brace does not have to or while lying in bed or while bathing. Following fitting of this brace, patient is clear for discharge from an orthopedic spine standpoint. Following discharge, patient may follow-up with Wilson Grayson PA-C or Dr. Hernán Herron at [facility]. We did discuss that [place] She will have difficulty with mobility and ambulation independently. We did discuss she could benefit from discharged to a rehabilitation facility at the time of discharge. Patient does feel this is a good plan of care. Patient has been discussed in detail with case management who will see the patient and will begin the process for placement at the time of discharge. Patient was seen and examined by pain management this morning who was planning for an epidural injection. That injection was scheduled for today. Following the diagnosis of her acute L5 fracture, patient should NOT proceed forward with the epidural injection until after her L5 fracture has healed appropriately. This has been discussed with nursing who will relay this information to pain management not to proceed forward with the epidural injection today. Pertinent studies: CT of the lumbar spine taken on 12/09/2022: L5 superior endplate compression fracture deformity of approximately 10% height loss; degenerative change at the bilateral sacroiliac joint; multilevel lumbar facet arthropathy; L2 to S3 broad- based disc bulge and bilateral facet arthropathy with at least mild central stenosis; L3-4 grade 1 spondylolisthesis and bilateral facet arthropathy resulting in moderate central canal stenosis and mild to moderate neural foraminal stenosis; L4-5 broad-based disc bulge and bilateral facet joint arthropathy resulting in at least mild central canal stenosis and moderate bilateral neural foraminal stenosis; L5-S1 posterior disc osteophyte complex and bilateral facet arthropathy resulting in at least mild central canal stenosis and bilateral neural foraminal stenosis; multilevel degenerative disc disease Assessment: Acute L5 compression fracture deformity Acute on chronic low back pain Difficulty ambulation due to generalized weakness and pain L3-4 spondylolisthesis Lumbar facet arthropathy Lumbar degenerative disc disease Lumbar spinal stenosis Sacroiliac joint degenerative change Neurogenic claudication Bilateral lower extremity radiculopathy Diabetes mellitus Obesity Hypothyroidism 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 Patient underwent CT imaging of the lumbar spine today. She was found to have an L5 fracture. On physical examination, she does have pain with palpation along the midline of the lower lumbar spine in the lumbosacral junction. This pain correlates well with her fracture visualized on CT imaging. She also states her low back pain has been severe in her most significant symptom over the past couple weeks after having the popping sensation in her lumbar spine while working with home therapy. Currently, we will plan to treat her L5 compression fracture deformity with conservative care. At this time we'll plan for bracing. A prescription has been written and provided to case management for an Exos LSO brace. Once this brace is delivered and fitted appropriately, patient should wear this brace while sitting upright at greater than 45, during increase activities, during ambulation. She may remain in bed until this brace is delivered and fitted appropriately. She is encouraged to work with physical therapy once this brace is delivered and fitted appropriately. Brace does not have to or while lying in bed or while bathing. Following fitting of this brace, patient is clear for discharge from an orthopedic spine standpoint. Following discharge, patient may follow-up with Wilson Grayson PA-C or Dr. Hernán Herron at [facility]. 2. We did discuss that the [place] the country. She will have difficulty with mobility and ambulation independently. We did discuss she could benefit from discharged to a rehabilitation facility at the time of discharge. Patient does feel this is a good plan of care. Patient has been discussed in detail with case management who will see the patient and will begin the process for placement at the time of discharge. 3. Patient was seen and examined by pain management this morning who was planning for an epidural injection. That injection was scheduled for today. Following the diagnosis of her acute L5 fracture, patient should NOT proceed forward with the epidural injection until after her L5 fracture has healed appropriately. This has been discussed with nursing who will relay this information to pain management not to proceed forward with the epidural injection today. 4. Patient will continue to be seen and examined by medicine
[2022-12-09] MEDS: DEXAMETHASONE SOD PHOSPHATE 4 MG/ML 1 ML VIAL IVP SCH ×3 (13:39→23:28)
[2022-12-09 13:50] LABS: Glucose,Whole Blood 180 mg/dL (70-110)
[2022-12-09 18:03] LABS: Glucose,Whole Blood 179 mg/dL (70-110)
[2022-12-09 21:18] LABS: Glucose,Whole Blood 169 mg/dL (70-110)
[2022-12-09] MEDS: NIACIN TR 500 MG CAPLET PO SCH (21:35)
[2022-12-09] MEDS: FAMOTIDINE 20 MG TAB PO SCH (21:38)
[2022-12-10] MEDS: LEVOTHYROXINE 75 MCG TAB PO SCH (05:44)
[2022-12-10] MEDS: KETOROLAC 15 MG/ML 1 ML VIAL IVP SCH ×4 (05:44→23:08)
[2022-12-10] MEDS: DEXAMETHASONE SOD PHOSPHATE 4 MG/ML 1 ML VIAL IVP SCH ×2 (05:44→12:17)
[2022-12-10 06:04] LABS: Glucose,Whole Blood 128 mg/dL (70-110)
[2022-12-10] MEDS: INSULIN ASPART (NovoLOG) 100 UNIT/ML VIAL SQ SCH ×4 (06:14→21:23)
[2022-12-10] MEDS: TIMOLOL 0.25% OPHTH DROPS 5 ML BTL BOTH EYES SCH ×2 (08:43→21:28)
[2022-12-10] MEDS: VITAMIN E (DL,TOCOPHERYL ACET) 400 UNIT (180 MG) CAP PO SCH (09:30)
[2022-12-10] MEDS: CALCIUM CARBONATE 500 MG CHEWABLE PO SCH ×2 (09:30→21:27)
[2022-12-10] MEDS: ACETAMINOPHEN TAB 325 MG TAB PO PRN (09:30)
[2022-12-10] MEDS: amLODIPine 5 MG TAB PO SCH ×2 (09:30→09:33)
[2022-12-10] MEDS: FAMOTIDINE 20 MG TAB PO SCH ×2 (09:30→21:27)
[2022-12-10] MEDS: HEPARIN SODIUM,PORCINE/PF 5,000 UNIT/0.5 ML SYRINGE SQ SCH ×2 (09:30→21:29)
[2022-12-10] MEDS: metFORMIN 500 MG TAB PO SCH ×2 (09:30→09:33)
[2022-12-10] MEDS: PIOGLITAZONE 45 MG TAB PO SCH (09:33)
[2022-12-10] MEDS: CHOLECALCIFEROL 25 MCG (1000 IU) TABLET PO SCH ×2 (09:33→21:27)
[2022-12-10] MEDS: PYRIDOXINE 50 MG TAB PO SCH (09:33)
--- NOTE | 2022-12-10 09:44 | P.PN ---
Progress Note - Text Progress Note Date: 12/10/22 Orthopedic spine: History of present illness: Patient is seen and examined at bedside for follow-up evaluation in regards to her lumbar spine. She has not had change in her symptoms since being seen and examined yesterday. Patient underwent CT imaging of the lumbar spine yesterday. She was found to have an L5 fracture. On physical examination, she does have pain with palpation along the midline of the lower lumbar spine in the lumbosacral junction. This pain correlates well with her fracture visualized on CT imaging. She also states her low back pain has been severe in her most significant symptom over the past couple weeks after having the popping sensation in her lumbar spine while working with home therapy. We started conservative treatment for her L5 compression fracture deformity with conservative care. Yesterday a prescription has been written and provided to case management for an Exos LSO brace. This brace was delivered and fitted appropriately yesterday. Patient should wear this brace while sitting upright at greater than 45, during increase activities, during ambulation. She may remain in bed until this brace is delivered and fitted appropriately. She is encouraged to work with physical therapy once this brace is delivered and fitted appropriately. Brace does not have to or while lying in bed or while bathing. She was able to transfer out of bed yesterday but had significant difficulty. She is encouraged to continue working with therapy today. We previously discussed [place] She will have difficulty with mobility and ambulation independently. We did discuss she could benefit from discharged to a rehabilitation facility at the time of discharge. Patient does feel this is a good plan of care. Patient has been discussed in detail with case management who will see the patient and will begin the process for placement at the time of discharge. Patient did not undergo an injection with pain management yesterday after the diagnosis of her acute L5 compression fracture. Patient is being seen and examined by medicine. Patient does complain of a headache today. She has not been receiving oral pain medications. Patient was discussed in detail with medicine. We'll plan to add oral hydrocodone. She does admit to diabetes mellitus. Physical exam: Patient is awake, alert, and oriented 3 Vital signs stable Good chest excursion with deep inspiration and expiration Patient is currently lying comfortably in bed Dorsiflexion, plantarflexion, and extensor hallucis longus positive sustained bilaterally Patient is unable to lift legs off the bed independently. Evidence of well-healed incisions over the anterior knees No lower extremity hyperreflexia bilaterally Negative Lasegue's test bilaterally No signs or symptoms of DVT; no calf pain No pain with internal and external rotation of the hips bilaterally Neurovascularly intact Pertinent studies: CT of the lumbar spine taken on 12/09/2022: L5 superior endplate compression fracture deformity of approximately 10% height loss; degenerative change at the bilateral sacroiliac joint; multilevel lumbar facet arthropathy; L2-3 broad- based disc bulge and bilateral facet arthropathy with at least mild central stenosis; L3-4 grade 1 spondylolisthesis and bilateral facet arthropathy resulting in moderate central canal stenosis and mild to moderate neural foraminal stenosis; L4-5 broad-based disc bulge and bilateral facet joint arthropathy resulting in at least mild central canal stenosis and moderate bilateral neural foraminal stenosis; L5-S1 posterior disc osteophyte complex and bilateral facet arthropathy resulting in at least mild central canal stenosis and bilateral neural foraminal stenosis; multilevel degenerative disc disease Assessment: Acute L5 compression fracture deformity Acute on chronic low back pain Difficulty ambulation due to generalized weakness and pain L3-4 spondylolisthesis Lumbar facet arthropathy Lumbar degenerative disc disease Lumbar spinal stenosis Sacroiliac joint degenerative change Neurogenic claudication Bilateral lower extremity radiculopathy Diabetes mellitus Obesity Hypothyroidism 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 We will continue with the plan of care as set forth yesterday. Patient underwent CT imaging of the lumbar spine yesterday. She was found to have an L5 fracture. On physical examination, she does have pain with palpation along the midline of the lower lumbar spine in the lumbosacral junction. This pain correlates well with her fracture visualized on CT imaging. She also states her low back pain has been severe in her most significant symptom over the past couple weeks after having the popping sensation in her lumbar spine while working with home therapy. Currently, we will plan to treat her L5 compression fracture deformity with conservative care. We started conservative treatment for her L5 compression fracture deformity with conservative care. Yesterday a prescription has been written and provided to case management for an Exos LSO brace. This brace was delivered and fitted appropriately yesterday. Patient should wear this brace while sitting upright at greater than 45, during increase activities, during ambulation. She may remain in bed until this brace is delivered and fitted appropriately. She is encouraged to work with physical therapy once this brace is delivered and fitted appropriately. Brace does not have to or while lying in bed or while bathing. She was able to transfer out of bed yesterday but had significant difficulty. She is encouraged to continue working with therapy today. Patient has had some difficulty with pain control. We'll plan to prescribe hydrocodone 5 mg/325 mg, 1 tab, every 6 hours as needed for pain. Prescription was also printed, signed, and placed in the patient's chart for hydrocodone 5 mg/325 mg, 1 tablet every 6 hours as needed for acute pain, dispense #28. 2. We did discuss that the [place]. She will have difficulty with mobility and ambulation independently. We did discuss she could benefit from discharged to a rehabilitation facility at the time of discharge. Patient does feel this is a good plan of care. Patient has been discussed in detail with case management who will see the patient and will begin the process for placement at the time of discharge. 3. Patient will continue to be seen and examined by medicine I was able to see the patient at bedside. I reviewed her imaging. I agree with the discussion and results above. I think the patient has an acute L5 compression fracture after lifting. She does have significant degenerative changes with spondylolisthesis facet arthropathy and degenerative degenerative this spondylosis. I think we need to allow the L5 compression fracture to try to heal before addressing the degenerative issues at her lumbar spine. Once it is healed she may need further treatment and potentially interventional pain management. We like to see if the compression fracture can heal appropriately with conservative treatment. She could be a candidate for kyphoplasty if conservative measures are not working. We will allow the fracture to heal for at least next few days were several weeks to see if she is able tolerate bracing for treatment. We discussed this with her and she seems understanding. She is having a great difficulty with any sort of mobility and she'll likely need placement post discharge prior to returning home by herself. 4. From an orthopedic spine standpoint, patient is clear for discharge. Patient may follow-up with Wilson Grayson PA-C or Dr. Hernán Herron at [facility] in 2-3 weeks following discharge.
[2022-12-10 11:28] LABS: Glucose,Whole Blood 196 mg/dL (70-110)
[2022-12-10] MEDS: HYDROcodone/APAP 5-325MG 1 EACH TAB PO PRN (12:12)
--- NOTE | 2022-12-10 12:41 | P.PN ---
Subjective This is a pleasant 82 results female with past medical history of Diabetes Mellitus, Hypertension, she is a patient of Dr. fu Patient presents because of back pain. Patient said that she has chronic low back pain and she went for physical therapy 3 weeks ago, about 2 weeks ago and the second consideration her orthopedic physical therapist try to increase her range of her movement so there is her leg up to the head and immediately she felt a pop sound in the lower back and more severe pain and lower back, radiating to both legs more on the right side than the left side, radiating down to the heel. With no associated numbness or tingling. She denies perineal anesthesia and she denies losing control of her bowel or urine control. About 20 to go while her daughter was visiting her, she almost fell to the chair, says that she is feeling more weakness in her legs, and again she says that she feels her right leg is weaker than the left. Her right leg pain and weakness today is with the same severity as one week earlier , she went to see her PCP Dr. Fu yesterday who referred her to the emergency room. She states that she has history of left neck pain when turning her head to the left side about 6 months ago and at times she had MRI of the cervical spine with her PCP Dr. Fu and she's been told she has a pinched nerve. Currently she still have some dull headache moderate in severity but no blurred vision or slurred speech, no tinnitus, no other new weakness or numbness. Patient follows up with pain in clinic as well, she states that she supposed to follow-up with pain doctor for epidural steroid injection and her appointment was on January 18 and was moved to December 18 because of her worsening pain and before coming to the hospital 0 Patient also noticed to live by herself as her daughters live far away, and she has difficulty taking care of herself because of that. She denies any other specific symptoms. She denies chest pain dyspnea or coughing. No abdominal pain vomiting and diarrhea, no dysuria urgency or burning. No dizziness or further weakness or numbness. Patient usually feels colder than usual. She denies smoking alcohol or illicit drugs Vitals looks stable She has unremarkable CBC, BMP, liver enzymes. Urine analysis is negative. Patient given pain medication of Toradol and Dilaudid and admitted to the hospital. With orthopedic team consulted Also she was started on normal saline Patient was seen by orthopedic team and sure if he had CAT scan of the lumbar spine with result is pending. 12/10/2022 Patient is still complaining of from lower back pain radiating to the right leg with some limitation of movement due to pain. No other new complaints. Discuss the case with orthopedic team and they recommended no epidural injection, patient and bedside nurse were informed, patient verbalized understanding and acceptance. Also we will start tapering her steroids Continue with pain management. Orthopedic team Orthopedic team recommended also physical therapy, brace is at bedside and p em was instructed to use it during therapy and ambulation and she verbalized understanding and acceptance. Possible discharge in 24-48 hours if she keeps improving Objective - Vital Signs Vital signs: Vital Signs Temp 97.4 F L 12/10/22 08:06 Pulse 78 12/10/22 08:06 Resp 18 12/10/22 10:00 BP 118/60 12/10/22 08:06 Pulse Ox 95 12/10/22 08:06 FiO2 Intake & Output 12/09/22 12/10/22 12/10/22 18:59 06:59 18:59 Intake Total 150 Balance 150 Weight 108.862 kg Intake: Oral 150 Other: Voiding Method Toilet # Voids 1 1 - Exam -GENERAL: The patient is alert and oriented x3, not in any acute distress. Morbidly obese HEENT: Pupils are round and equally reacting to light. EOMI. No scleral icterus. No conjunctival pallor. Normocephalic, atraumatic. No pharyngeal erythema. No thyromegaly. CARDIOVASCULAR: S1 and S2 present. No murmurs, rubs, or gallops. PULMONARY: Chest is clear to auscultation, no wheezing or crackles. ABDOMEN: Soft, nontender, nondistended, normoactive bowel sounds. No palpable organomegaly. MUSCULOSKELETAL: No joint swelling or deformity. EXTREMITIES: No cyanosis, clubbing, or pedal edema. -NEUROLOGICAL: Cranial nerves are grossly intact. Rest of exam is limited by patient pain, she has some limited addressing her right leg secondary to pain, there was no more mild weakness on the right lower extremity. There is mild decreased sensation in the left lower extremity and leak, meningeal signs are absent. SKIN: No rashes. no petechiae. - Labs CBC & Chem 7: 12/08/22 18:30 12/08/22 18:30 Labs: Abnormal Lab Results - Last 24 Hours (Table) 12/09/22 12/09/22 12/09/22 Range/Units 13:48 17:58 21:16 POC Glucose (mg/dL) 180 H 179 H 169 H (70-110) mg/dL 12/10/22 12/10/22 Range/Units 06:03 11:26 POC Glucose (mg/dL) 128 H 196 H (70-110) mg/dL Assessment and Plan Assessment: acute On chronic low back pain Radiating to both lower extremity, more on the right side. With CT showing age indeterminant compression deformity of S1 vertebral body Diabetes Mellitus Hypertension History of left neck pain and pinched nerve about 6 months ago Morbid Obesity with BMI of 39.9 Plan: Plan discussed with orthopedic team, no surgical intervention is recommended right now. Also no epidural injection is recommended given her fracture Dexamethasone, can switch to Medrol Dosepak. 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 Continue same treatment. Continue with symptomatic treatment. Resume home medication. Monitor labs and vitals. DVT and GI prophylaxis. Further recommendations as per clinical course of the patient DVT prophylaxis: Subcutaneous heparin GI Prophylaxis: Pepcid PT/OT: Pending (Deferred ) Prognosis is guarded
[2022-12-10] MEDS: methylPREDNISolone 4 MG TAB TAPER PO SCH (13:59)
[2022-12-10 17:04] LABS: Glucose,Whole Blood 155 mg/dL (70-110)
[2022-12-10 21:11] LABS: Glucose,Whole Blood 163 mg/dL (70-110)
[2022-12-10] MEDS: NIACIN TR 500 MG CAPLET PO SCH (21:28)
[2022-12-10] MEDS ORDERED: DOCUSATE 100 MG CAP PO STA (21:36)
[2022-12-11 06:09] LABS: Glucose,Whole Blood 91 mg/dL (70-110)
[2022-12-11] MEDS: INSULIN ASPART (NovoLOG) 100 UNIT/ML VIAL SQ SCH ×4 (06:25→21:54)
[2022-12-11] MEDS: KETOROLAC 15 MG/ML 1 ML VIAL IVP SCH ×3 (06:37→17:10)
[2022-12-11] MEDS: LEVOTHYROXINE 75 MCG TAB PO SCH (06:37)
[2022-12-11] MEDS: TIMOLOL 0.25% OPHTH DROPS 5 ML BTL BOTH EYES SCH ×2 (06:41→21:55)
[2022-12-11] MEDS: CHOLECALCIFEROL 25 MCG (1000 IU) TABLET PO SCH ×2 (09:15→21:54)
[2022-12-11] MEDS: CALCIUM CARBONATE 500 MG CHEWABLE PO SCH ×2 (09:15→21:53)
[2022-12-11] MEDS: LOSARTAN 50 MG TAB PO SCH (09:15)
[2022-12-11] MEDS: HEPARIN SODIUM,PORCINE/PF 5,000 UNIT/0.5 ML SYRINGE SQ SCH ×2 (09:15→21:53)
[2022-12-11] MEDS: methylPREDNISolone 4 MG TAB TAPER PO SCH (09:16)
[2022-12-11] MEDS: amLODIPine 5 MG TAB PO SCH (09:16)
[2022-12-11] MEDS: metFORMIN 500 MG TAB PO SCH ×2 (09:16→21:54)
[2022-12-11] MEDS: DOCUSATE 100 MG CAP PO SCH ×2 (09:16→21:53)
[2022-12-11] MEDS: FAMOTIDINE 20 MG TAB PO SCH ×2 (09:16→21:54)
[2022-12-11] MEDS: PYRIDOXINE 50 MG TAB PO SCH (09:17)
[2022-12-11] MEDS: VITAMIN E (DL,TOCOPHERYL ACET) 400 UNIT (180 MG) CAP PO SCH (09:17)
[2022-12-11] MEDS: PIOGLITAZONE 45 MG TAB PO SCH (09:17)
[2022-12-11] MEDS: HYDROcodone/APAP 5-325MG 1 EACH TAB PO PRN ×2 (09:43→22:02)
--- NOTE | 2022-12-11 10:31 | P.PN ---
Progress Note - Text Progress Note Date: 12/11/22 Patient is seen and examined today at bedside. She feels like her back may be doing somewhat better today. She is not yet been out of bed. She is hopeful that she'll be able get out of bed today with her brace on. Pain is being controlled with medication. She is mentioning bilateral calf pain today. She says this was not present 2 days ago and started feeling more this morning. She says it is tender at her calves whenever they are touched. She denies any numbness tingling in her lower extremity. Denies any prior problems with this. Denies any chest pain or shortness of breath. Physical Exam Afebrile with stable vital signs Abdomen is soft nontender. Chest has good excursion deep and space expiration She does have some tenderness to palpation at her lower lumbar spine. Extremities have not had neurologic change from prior to surgery. There is no pain at her hips with rotation Calves Have no significant swelling but she does have tenderness at her bilateral calves with compression and palpation. She has sustained dorsal flexion plantarflexion and EHL intact. Her thighs are soft and nontender. Assessment/Plan L5 subacute compression fracture Low back pain Inability to ambulate Bilateral lower extremity calf pain, new The patient does not have significant swelling at her calves but does have some tenderness. I think it is worthwhile to obtain new duplex ultrasound of her lower chemise to rule out DVT. If it is negative we can continue with compression sequential devices as well as therapy for mobilization. If it is positive certainly we will start appropriate medical management. She should continue with her prevention measures for now. She has a brace for her compression fracture at bedside. She is not able to get out of bed yesterday. If her ultrasound is negative for DVT them we could try to resume her mobilization with the brace on. We will continue pain control with oral or IV medications. We'll continue to follow patient closely.
[2022-12-11 11:19] LABS: Glucose,Whole Blood 100 mg/dL (70-110)
--- NOTE | 2022-12-11 14:04 | US ---
EXAMINATION TYPE: US venous doppler duplex LE BI DATE OF EXAM: 12/11/2022 1:34 PM COMPARISON: NONE CLINICAL HISTORY: Bilateral lower extremity pain. SIDE PERFORMED: Bilateral TECHNIQUE: The lower extremity deep venous system is examined utilizing real time linear array sonog sachi with graded compression, doppler sonography and color-flow sonography. VESSELS IMAGED: Common Femoral Vein Deep Femoral Vein Greater Saphenous Vein * Femoral Vein Popliteal Vein Small Saphenous Vein * Proximal Calf Veins (* superficial vessels) Exam limited by body habitus and tissue edema Grayscale, color doppler, spectral doppler imaging performed of the deep veins of the lower extremiti es. There is normal flow, compressibility, vascular waveforms. Right Leg: Negative for DVT Left Leg: Negative for DVT IMPRESSION: Limited examination due to patient body habitus and tissue edema. No ultrasound evidence for deep venous thrombosis of the bilateral lower extremities.
--- NOTE | 2022-12-11 16:10 | P.DS ---
Providers Date of admission: 12/08/22 19:37 Attending physician: Beto Munoz Consults: 12/08/22 19:36 Consult Physician Urgent Consulting Provider: Marissa Herron Consult Reason/Comments: Intractable back pain Do you want consulting provider notified?: Yes Primary care physician: Adriano Fu [facility] Course: Diagnoses: acute On chronic low back pain Radiating to both lower extremity, more on the right side. With CT showing age indeterminant compression deformity of S1 vertebral body Diabetes Mellitus Hypertension History of left neck pain and pinched nerve about 6 months ago Morbid Obesity with BMI of 39.9 Hospital course: This is a pleasant 82 results female with past medical history of Diabetes Mellitus, Hypertension, she is a patient of Dr. fu Patient presents because of back pain. Patient said that she has chronic low back pain and she went for physical therapy 3 weeks ago, about 2 weeks ago and the second consideration her orthopedic physical therapist try to increase her range of her movement so there is her leg up to the head and immediately she felt a pop sound in the lower back and more severe pain and lower back, radiating to both legs more on the right side than the left side, radiating down to the heel. With no associated numbness or tingling. She denies perineal anesthesia and she denies losing control of her bowel or urine control. CT of the thoraco-coccygeal showing Age-indeterminant wedge compression deformity of the S1 vertebral body. Patient evaluated by orthopedic team and recommended conservative management with no indication for surgical intervention for now, her pain is controlled with medication. Breasts is delivered at bedside and instruction is provided for the patient. On the day of discharge patient she feels much better and her pain is con trolled. She still trying to increase her movement and actually today exam showing better mobility of her right lower extremity with better control of pain however still there is some limitation also thought secondary to pain. No urine or bowel incontinence. Patient denies chest pain or dyspnea. No change in urine or bowel habits. No fever. Patient was cleared for discharge by orthopedic team Problems and management plan were discussed with the patient and he verbalized understanding and acceptance Patient was found stable and can be discharged to [facility] for [facility] in guarded prognosis however he needs follow-up as an outpatient. Patient was instructed to follow up with PCP Dr. Fu within one week and patient agrees Patient was instructed to follow up with Dr. Velásquez at [facility] with the appointments made for her on 12/30. Physical exam Gen: patient is a AAOx3, no distress CVS: S1-S2, RRR, no murmur Lungs: B/L CTA, no wheezing Abdomen: soft, no distention, no tenderness, positive bowel sounds Extremity: no leg edema or induration -Musculoskeletal: Lower back tenderness, restricted movement secondary to pain, improving Neuro: Cranial nerves are grossly intact. Exam is limited by patient condition and pain. No significant weakness and lower extremity. Sensation is intact. Time spent more than 35 minutes Plan - Discharge Summary New Discharge Prescriptions: New HYDROcodone/APAP 5-325MG [[place] 5] 1 each PO Q6HR PRN #28 tab PRN Reason: Pain No Action Levothyroxine Sodium [Synthroid] 75 mcg PO DAILY Meloxicam [Mobic] 7.5 mg PO BID timoloL maleate [timoloL maleate 0.25%] 1 applic BOTH EYES BID Losartan Potassium 100 mg PO DAILY Vitamin E (Dl,Tocopheryl Acet) [Vitamin E (400 Iu = 180 mg)] 800 unit PO DAILY Cholecalciferol [Vitamin D3 (25 Mcg = 1000 Iu)] 25 mcg PO BID Ascorbic Acid [Vitamin C] 500 mg PO DAILY Calcium Carbonate [Calcium] 600 mg PO BID Pioglitazone [Actos] 45 mg PO DAILY metFORMIN HCL [Metformin HCl] 500 mg PO BID amLODIPine [Norvasc] 5 mg PO DAILY Ubidecarenone [Coenzyme Q10] 100 mg PO DAILY Acetaminophen [Tylenol 8 Hour] 650 mg PO Q6H PRN PRN Reason: Pain Or Fever > 100.5 traMADol HCL 50 mg PO Q8H PRN PRN Reason: Pain Pyridoxine HCl (Vitamin B6) [Vitamin B-6] 100 mg PO DAILY Multivitamins, Thera [Multivitamin (formulary)] 1 tab PO DAILY Niacin [Plain Niacin] 500 mg PO HS Discharge Medication List Levothyroxine Sodium [Synthroid] 75 mcg PO DAILY 11/19/22 [History] Pioglitazone [Actos] 45 mg PO DAILY 11/19/22 [History] metFORMIN HCL [Metformin HCl] 500 mg PO BID 11/19/22 [History] Acetaminophen [Tylenol 8 Hour] 650 mg PO Q6H PRN 12/08/22 [History] Ascorbic Acid [Vitamin C] 500 mg PO DAILY 12/08/22 [History] Calcium Carbonate [Calcium] 600 mg PO BID 12/08/22 [History] Cholecalciferol [Vitamin D3 (25 Mcg = 1000 Iu)] 25 mcg PO BID 12/08/22 [History] Losartan Potassium 100 mg PO DAILY 12/08/22 [History] Meloxicam [Mobic] 7.5 mg PO BID 12/08/22 [History] Multivitamins, Thera [Multivitamin (formulary)] 1 tab PO DAILY 12/08/22 [History] Niacin [Plain Niacin] 500 mg PO HS 12/08/22 [History] Pyridoxine HCl (Vitamin B6) [Vitamin B-6] 100 mg PO DAILY 12/08/22 [History] Ubidecarenone [Coenzyme Q10] 100 mg PO DAILY 12/08/22 [History] Vitamin E (Dl,Tocopheryl Acet) [Vitamin E (400 Iu = 180 mg)] 800 unit PO DAILY 12/08/22 [History] amLODIPine [Norvasc] 5 mg PO DAILY 12/08/22 [History] timoloL maleate [timoloL maleate 0.25%] 1 applic BOTH EYES BID 12/08/22 [History] traMADol HCL 50 mg PO Q8H PRN 12/08/22 [History] HYDROcodone/APAP 5-325MG [[place] 5] 1 each PO Q6HR PRN #28 tab 12/10/22 [Rx] Follow up Appointment(s)/Referral(s): Adriano Fu MD [Primary Care Provider] - 1-2 days Wilson Grayson PAC [PHYSICIAN TECHNICAL SOLUTIONS CONSULTANT] - 12/30/22 1:00 pm (Patient may follow-up with Wilson Grayson PA-C or Dr. Hernán Herron at [facility] in 3 weeks following discharge. ) Michael Fontaine [NON-STAFF] - As Needed (LSO brace) Activity/Diet/Wound Care/Special Instructions: 1. Patient may wear LSO brace for comfort and support while sitting upright at greater than 45, while working with therapy, and while ambulating; patient does not have to wear the brace while lying in bed or bathing 2. Patient should avoid excessive bending, twisting, and lifting; no lifting greater than 10 pounds Discharge Disposition: TRANSFER TO SNF/ECF
[2022-12-11 16:49] LABS: Glucose,Whole Blood 156 mg/dL (70-110)
[2022-12-11 21:00] LABS: Glucose,Whole Blood 132 mg/dL (70-110)
[2022-12-11] MEDS: NIACIN TR 500 MG CAPLET PO SCH (21:54)
[2022-12-12] MEDS: ACETAMINOPHEN TAB 325 MG TAB PO PRN (01:21)
[2022-12-12] MEDS: HYDROcodone/APAP 5-325MG 1 EACH TAB PO PRN ×2 (03:15→12:58)
[2022-12-12] MEDS: INSULIN ASPART (NovoLOG) 100 UNIT/ML VIAL SQ SCH ×2 (05:52→12:32)
[2022-12-12 05:53] LABS: Glucose,Whole Blood 73 mg/dL (70-110)
[2022-12-12] MEDS: TIMOLOL 0.25% OPHTH DROPS 5 ML BTL BOTH EYES SCH (06:02)
[2022-12-12] MEDS: LEVOTHYROXINE 75 MCG TAB PO SCH (06:03)
[2022-12-12 08:24] VITALS: BP 145/68; PULSE 85; RESP 19; TEMP 97.8
[2022-12-12] MEDS: DOCUSATE 100 MG CAP PO SCH (09:14)
[2022-12-12] MEDS: metFORMIN 500 MG TAB PO SCH (09:14)
[2022-12-12] MEDS: amLODIPine 5 MG TAB PO SCH (09:14)
[2022-12-12] MEDS: methylPREDNISolone 4 MG TAB TAPER PO SCH (09:14)
[2022-12-12] MEDS: VITAMIN E (DL,TOCOPHERYL ACET) 400 UNIT (180 MG) CAP PO SCH (09:14)
[2022-12-12] MEDS: PIOGLITAZONE 45 MG TAB PO SCH (09:14)
[2022-12-12] MEDS: HEPARIN SODIUM,PORCINE/PF 5,000 UNIT/0.5 ML SYRINGE SQ SCH (09:14)
[2022-12-12] MEDS: FAMOTIDINE 20 MG TAB PO SCH (09:14)
[2022-12-12] MEDS: CHOLECALCIFEROL 25 MCG (1000 IU) TABLET PO SCH (09:15)
[2022-12-12] MEDS: CALCIUM CARBONATE 500 MG CHEWABLE PO SCH (09:15)
[2022-12-12] MEDS: LOSARTAN 50 MG TAB PO SCH (09:15)
[2022-12-12] MEDS: PYRIDOXINE 50 MG TAB PO SCH (09:45)
--- NOTE | 2022-12-12 10:43 | CDI ---
Documentation Clarification Form Date: 12/12/2022 10:29:13 AM From: Jennifer Bolton RN, CCDS Email: [email or web address] Admit Date: 12/08/2022 7:37:00 PM Patient Name: Raya Morris Visit Number: [id number] Discharge Date: ATTENTION: The Clinical Documentation Specialists (CDI) and [facility] Coding Staff appreciate your assistance in clarifying documentation. Please respond to the clarification below the line at the bottom and electronically sign. The CDI & [facility] Coding staff will review the response and follow-up if needed. Please note: Queries are made part of the Legal Health Record. If you have any questions, please contact the author of this message via ITS. Dr. Leno Ann Sheet A compression fracture is documented in the progress notes. Additional clarification regarding the etiology of the fracture is requested. History/Risk Factors: DM, HTN, chronic low back pain, right TKA, lumbar spinal stenosis Clinical Indications: H&P: "2 weeks ago, orthopedic physical therapist tried to increase her range of movement. Brought her leg up to the head and immediately she felt a pop sound in the lower back and more severe pain in the lower back, radiating to both legs more on the right side than the left side and radiating down to the heel. 12/10 IM: "no epidural injection is recommended given her fracture. 12/10 Ortho: I think the patient has an acute L5 compression fracture after lifting. 12/09 CT lumbar spine: Age-indeterminate wedge compression deformity of the S1 vertebral body. Moderate multilevel degenerative disc disease and osteoarthritic Treatment: LSO brace, PT, Sun po Q6H prn, Decadron 10mg IVP Q6H, Dilaudid 0.5mg IVP Q6H prn, Toradol 15mg IVP Q6H Pain management: "Computed tomography scan of the lumbar spine showed that patient had compression fracture of L5 vertebral. Orthopedic surgery recommend lumbar spine braces." 12/09 Ortho: "Acute L5 compression fracture deformity. Please clarify the etiology of the fracture, if known: [ ] Traumatic [ ] Stress [ ] Pathological (specify cause): ___ [ ] Other (please specify): [ ] Unable to determine Traumatic, possible secondary to her physical therapist trying to manipulate and raising her leg, vs others possibilities MTDD
[2022-12-12 12:05] LABS: Glucose,Whole Blood 145 mg/dL (70-110)
--- NOTE | 2022-12-12 12:13 | P.DS ---
Providers Date of admission: 12/08/22 19:37 Expected date of discharge: 12/12/22 Attending physician: Beto Munoz Consults: 12/08/22 19:36 Consult Physician Urgent Consulting Provider: Marissa Herron Consult Reason/Comments: Intractable back pain Do you want consulting provider notified?: Yes Primary care physician: [facility] Course: Final Diagnoses: acute On chronic low back pain Radiating to both lower extremity, more on the right side. With CT showing age indeterminant compression deformity of S1 vertebral body L5 subacute compression fracture, possibly traumatic after hearing a pop while at rehab during a stretching session Diabetes Mellitus Hypertension History of left neck pain and pinched nerve about 6 months ago Morbid Obesity with BMI of 39.9 Hospital course: This is a pleasant 82 results female with past medical history of Diabetes Mellitus, Hypertension, she is a patient of Dr. Espinoza Patient presents because of back pain. Patient said that she has chronic low back pain and she went for physical therapy 3 weeks ago, about 2 weeks ago and the second consideration her orthopedic physical therapist try to increase her range of her movement so there is her leg up to the head and immediately she felt a pop sound in the lower back and more severe pain and lower back, radiating to both legs more on the right side than the left side, radiating down to the heel. With no associated numbness or tingling. She denies perineal anesthesia and she denies losing control of her bowel or urine control. CT of the thoraco-coccygeal showing Age-indeterminant wedge compression deformity of the S1 vertebral body. Patient evaluated by orthopedic team and recommended conservative management with no indication for surgical intervention for now, her pain is controlled with medication. Breasts is delivered at bedside and instruction is provided for the patient. On the day of discharge patient she feels much better and her pain is controlled. She still trying to increase her movement and actually today exam showing better mobility of her right lower extremity with better control of pain however still there is some limitation also thought secondary to pain. No urine or bowel incontinence. Patient denies chest pain or dyspnea. No change in urine or bowel habits. No fever. Patient was cleared for discharge by orthopedic team Problems and management plan were discussed with the patient and he verbalized understanding and acceptance Patient was found stable and can be discharged to [facility] for [facility] in guarded prognosis however he needs follow-up as an outpatient. Patient was instructed to follow up with PCP Dr. Espinoza within one week and patient agrees Patient was instructed to follow up with Dr. Velásquez at [facility] with the appointments made for her on 12/30. Physical exam: Gen: This is a 82-year-old female who is awake, alert and oriented 3, well- developed, well-nourished, obese HEENT: Head is atraumatic, normocephalic. Pupils equal, round. Sclerae is anicteric. NECK: Supple. No JVD. No lymphadenopathy. No thyromegaly. LUNGS: Diminished breath sounds bilaterally with no wheezes or rhonchi. No intercostal retractions. HEART: S1, S2 are muffled ABDOMEN: Soft. Bowel sounds are present. No masses. No tenderness. EXTREMITIES: No pedal edema. No calf tenderness. NEUROLOGICAL: Patient is awake, alert and oriented x3. Cranial nerves 2 through 12 are grossly intact. Diffusely weak Please refer to medication reconciliation sheet further medications Time spent more than 35 minutes The impression and plan of care has been dictated by Bettina Abdalla, Nurse Practitioner as directed. Dr. Alexander MD I have performed a history and examination and MDM of this patient, discussed the same with the dictator, and agree with the dictator's assessment and plan as written ,documented as a scribe. Based on total visit time, I have performed more than 50% of the visit. Patient Condition at Discharge: Stable Plan - Discharge Summary New Discharge Prescriptions: New HYDROcodone/APAP 5-325MG [Agra 5] 1 each PO Q6HR PRN #28 tab PRN Reason: Pain Docusate [Colace] 100 mg PO BID #0 cap Famotidine [Pepcid] 20 mg PO BID tab Continue Levothyroxine Sodium [Synthroid] 75 mcg PO DAILY timoloL maleate [timoloL maleate 0.25%] 1 applic BOTH EYES BID Losartan Potassium 100 mg PO DAILY Vitamin E (Dl,Tocopheryl Acet) [Vitamin E (400 Iu = 180 mg)] 800 unit PO DAILY Cholecalciferol [Vitamin D3 (25 Mcg = 1000 Iu)] 25 mcg PO BID Ascorbic Acid [Vitamin C] 500 mg PO DAILY Calcium Carbonate [Calcium] 600 mg PO BID Pioglitazone [Actos] 45 mg PO DAILY metFORMIN HCL 500 mg PO BID amLODIPine [Norvasc] 5 mg PO DAILY Ubidecarenone [Coenzyme Q10] 100 mg PO DAILY Pyridoxine HCl (Vitamin B6) [Vitamin B-6] 100 mg PO DAILY Multivitamins, Thera [Multivitamin (formulary)] 1 tab PO DAILY Niacin [Plain Niacin] 500 mg PO HS Changed Acetaminophen [Tylenol 8 Hour] 325 mg PO Q6H PRN #0 PRN Reason: Pain Or Fever > 100.5 Discontinued Meloxicam [Mobic] 7.5 mg PO BID traMADol HCL 50 mg PO Q8H PRN PRN Reason: Pain Discharge Medication List Levothyroxine Sodium [Synthroid] 75 mcg PO DAILY 11/19/22 [History] Pioglitazone [Actos] 45 mg PO DAILY 11/19/22 [History] metFORMIN HCL 500 mg PO BID 11/19/22 [History] Ascorbic Acid [Vitamin C] 500 mg PO DAILY 12/08/22 [History] Calcium Carbonate [Calcium] 600 mg PO BID 12/08/22 [History] Cholecalciferol [Vitamin D3 (25 Mcg = 1000 Iu)] 25 mcg PO BID 12/08/22 [History] Losartan Potassium 100 mg PO DAILY 12/08/22 [History] Multivitamins, Thera [Multivitamin (formulary)] 1 tab PO DAILY 12/08/22 [History] Niacin [Plain Niacin] 500 mg PO HS 12/08/22 [History] Pyridoxine HCl (Vitamin B6) [Vitamin B-6] 100 mg PO DAILY 12/08/22 [History] Ubidecarenone [Coenzyme Q10] 100 mg PO DAILY 12/08/22 [History] Vitamin E (Dl,Tocopheryl Acet) [Vitamin E (400 Iu = 180 mg)] 800 unit PO DAILY 12/08/22 [History] amLODIPine [Norvasc] 5 mg PO DAILY 12/08/22 [History] timoloL maleate [timoloL maleate 0.25%] 1 applic BOTH EYES BID 12/08/22 [History] HYDROcodone/APAP 5-325MG [Agra 5] 1 each PO Q6HR PRN #28 tab 12/10/22 [Rx] Acetaminophen [Tylenol 8 Hour] 325 mg PO Q6H PRN #0 12/11/22 [Rx] Docusate [Colace] 100 mg PO BID #0 cap 12/11/22 [Rx] Famotidine [Pepcid] 20 mg PO BID tab 12/11/22 [Rx] Follow up Appointment(s)/Referral(s): Adriano Espinoza MD [Primary Care Provider] - 1-2 days (Please call for appointment.) Wilson Grasyon PAC [PHYSICIAN PASTEURIZING MACHINE OPERATOR] - 12/30/22 1:00 pm (Patient may follow-up with Wilson Grayson PA-C or Dr. Hernán Herron at [facility] in 3 weeks following discharge. ) Michael Fontaine [NON-STAFF] - As Needed (LSO brace) Activity/Diet/Wound Care/Special Instructions: 1. Patient may wear LSO brace for comfort and support while sitting upright at greater than 45, while working with therapy, and while ambulating; patient does not have to wear the brace while lying in bed or bathing 2. Patient should avoid excessive bending, twisting, and lifting; no lifting greater than 10 pounds Discharge Disposition: TRANSFER TO SNF/ECF
== END 2022-12-12 12:53 | DRG 552 ==
LOC: EC 15:07 → 4SSUR 19:37
PROVIDERS: ADMIT Hospitalist; ATTEND Hospitalist
DX: S32.059A Unspecified fracture of fifth lumbar vertebra, initial encounter for closed fracture (principal); S32.10XA Unspecified fracture of sacrum, initial encounter for closed fracture; X50.0XXA Overexertion from strenuous movement or load, initial encounter; Y93.89 Activity, other specified; Y92.89 Other specified places as the place of occurrence of the external cause; E03.9 Hypothyroidism, unspecified; E66.01 Morbid (severe) obesity due to excess calories; Z68.39 Body mass index [BMI] 39.0-39.9, adult; G89.29 Other chronic pain; M51.16 Intervertebral disc disorders with radiculopathy, lumbar region; M48.062 Spinal stenosis, lumbar region with neurogenic claudication; E11.9 Type 2 diabetes mellitus without complications; Z88.1 Allergy status to other antibiotic agents; Z88.2 Allergy status to sulfonamides; Z88.8 Allergy status to other drugs, medicaments and biological substances; Z60.2 Problems related to living alone; Z86.16 Personal history of COVID-19; Z79.890 Hormone replacement therapy; Z79.84 Long term (current) use of oral hypoglycemic drugs; Z79.899 Other long term (current) drug therapy; Z79.1 Long term (current) use of non-steroidal anti-inflammatories (NSAID); Z96.653 Presence of artificial knee joint, bilateral
CPT/HCPCS: 36415; 72131; 80053; 81003; 82607; 82746; 83036; 84443; 85025; 85730; 93970; 96361; 96372; 96374; 96375; 96376; 99285

== ENCOUNTER 2023-01-06 09:47 | Day surgery (SDC) | payer MEDICARE, BC ==
[2023-01-05 13:33] VITALS: BMI 39.9
[2023-01-06] MEDS ORDERED: LACTATED RINGERS 1,000 ML IV SCH (10:30)
[2023-01-06] MEDS ORDERED: LIDOCAINE 1% (10MG/ML) FOR IV START INTRADERMA PRN (10:30)
[2023-01-06 10:36] LABS: Glucose,Whole Blood 92 mg/dL (70-110)
[2023-01-06 10:37] VITALS: RESP 16; TEMP 97.5
[2023-01-06] MEDS ORDERED: MIDAZOLAM 2 MG/2 ML VIAL ONE (10:40)
[2023-01-06] MEDS ORDERED: ROPIVACAINE 5 MG/ML 20 ML AMPULE ONE (10:40)
[2023-01-06] MEDS ORDERED: methylPREDNISolone ACETATE 40 MG/ML 1 ML VIAL ONE (10:40)
--- NOTE | 2023-01-06 11:11 | P.PCN ---
Date of Procedure: 01/06/23 Procedure(s) Performed: PREOPERATIVE DIAGNOSIS: 1-Lumbar Spondylosis with Facet Arthropathy without myelopathy. 2- Lumber degenerative disc disease. POSTOPERATIVE DIAGNOSIS: 1- Lumbar Spondylosis with Facet Arthropathy without myelopathy. 2- Lumber degenerative disc disease. PROCEDURES : Bilateral Radiofrequency thermocoagulation, L3 , L4 , and L5 medial branch, with fluoroscopic guidance (fluoroscopy images available in the radiology department) ( to denervate the facet joint at bilateral L4-5 ,and L5-S1 levels ). ANESTHESIA: Moderate sedation with intravenous versed 1 mg , sedation started at 10:45, ended at 11:08 EBL: Minimal PROCEDURE INDICATION: The patient with low back pain secondary to lumbar facet arthropathy who had more than 50% relief of her pain with previous diagnostic lumbar medial branch block with bupivacaine. PROCEDURE DESCRIPTION / TECHNIQUE: The patient was seen and identified in the preoperative area. Risks, benefits, complications, including but not limited to risk of infection ,bleeding , allergic reactions to the medications and no complete pain releife , and alternatives were discussed with the patient, the patient agreed to proceed with the procedure and signed the consent. IV was started. Vital signs remained stable throughout the procedure. Patient was taken to the OR and time out was completed. The patient was placed in the prone position on the procedure table. The lumber area was prepped and draped in the usual sterile fashion. . Vital signs were closely monitored during the procedure .IV sedation was used during the procedure to decrease patients anxiety. Using AP and then oblique fluoroscopy, the ``eye of the Ankush dog corresponding to the connection between the superior and transverse articular processes of right L3, L4, and L5 were identified, marked, and localized with 1% lidocaine. Subsequently, a 18 [id number] radiofrequency cannula with a 10- mm active tip was advanced guided by fluoroscopy to each of the``eyes of the Ankush dog at right L3, L4, and L5. Each site then underwent sensory testing at 50 Hz and 0 to 1 volt and motor testing at 2.5 Hz and 0 to 3 volt with local stimulation, but no radicular symptoms down the legs. Thereafter each sites underwent radiofrequency thermocoagulation at 80 degrees celsius for 90 seconds after injecting 0.5 ml of PF Ropivacaine 1ml, then after the thermocoagulation done , 1 ml of the block solution containing Depo-Medrol 20 mg and 3 ml of Ropivacaine 0.5% was injected at the right L3 , L4 , and L5 , levels after negative aspiration of CSF and blood and with no paresthesias. Cannulas were retracted while injecting lidocaine 1% until the needle is out. The same procedure was repeated at the level of Left L3, L4, and L5 levels. At the end of the procedure, the skin was cleansed and bandages were applied. COMPLICATIONS: No acute complications. DISPOSITION / PLANS: The patient was placed in a supine position and transferred to the recovery area in a stable condition for observation and was discharged from the recovery room after meeting discharge criteria. Home discharge instructions given to the patient by the staff. The patient was reexamined prior to discharge. The patient will schedule a follow up in the clinic in 2-4 weeks.
[2023-01-06] MEDS ORDERED: IV FLUID CONTINUATION 1,000 ML IV ONE (11:15)
[2023-01-06 11:40] VITALS: BP 139/83; PULSE 95
--- NOTE | 2023-01-06 17:28 | FL ---
Intraoperative/procedural fluoroscopic services were provided. Total fluoroscopy time is 35 seconds w ith a total of 7 submitted images to PACS. Please see the operative/procedural note for further detai ls. DAP: [id number]
== END 2023-01-06 11:54 | disposition home or self-care (01) ==
LOC: ORPAIN 09:47
PROVIDERS: ATTEND Specialist
DX: M51.36 Other intervertebral disc degeneration, lumbar region (principal); M47.816 Spondylosis without myelopathy or radiculopathy, lumbar region
CPT/HCPCS: 64635; 64636 ×2; 99152; 99153; J2250; J1030; J2795

== ENCOUNTER → 2023-01-28 | Outpatient (CLI) | payer MEDICARE, BC ==
[2023-01-28 11:26] VITALS: BP 144/83; PULSE 96; RESP 16; TEMP 97.9
--- NOTE | 2023-01-28 14:32 | P.PAINPG ---
PQRS Measure Charge Sheet Comment: A 82 yr old female w daughter at side with a history of severe and chronic LBP secondary to lumbar DDD and spondylosis with facet arthropathy without myelopathy presents today for evaluation s/p BL RFA L4-L5, L5-S1. Pt states she experienced 75 % pain relief s/p procedure. Pt states she suffered a lumbar ve rtebral fracture and is going to a different physical therapist as a result. Pain level is provoked at 7 /10 in intensity, constant, localized in the lumbar spine, achy in character w shooting towards the BLEs. Pain is provoked by walking. Pain is alleviated with medications, injections, ice, heat, PT from November 2022 total present, use of a lumbar support brace, repositioning and rest. Interventional pain procedures completed include BL RFA L3-5 Patient is currently on Tramadol, Tyl Patient denies any side effects of the medication(s), denies excessive drowsiness or sleepiness, denies suicidal ideation and reports that the current pain medication is helping to control the pain and improve activities of daily living. Patient denies any motor or sensory deficits. Patient denies any fever or night sweats, denies any change in the bowel movements or urination. Physical Examination: -Constitutional: Cooperative. Not in acute distress . - Neurologic: Cranial nerve II to XII intact. No focal neurological deficits. - Psychatric: Alert & oriented x 3. Matching mood & appropriate affect. Judgment and insight intact. - Musculoskeletal: Cervical spine: Muscle bulk/ tone/ strength in the bilateral upper extremities normal Vertebral body tenderness to palpation over Spurling test positive Distraction test positive Facet loading test positive TTP Thoracic spine Muscle bulk / tone/ strength in the bilateral paraspinal muscles normal Vertebral body tender to palpation over Facet loading test positive TTP Lumbar spine: Motor bulk/ tone/ strength lower extremities , thigh and legs : 5/5 Deep tendon reflexes : Normal Knee Jerk. Normal Ankle Jerk . Vertebral body tenderness to palpation over L2, L3, L4 region Lumbar Facet Loading Test positive Straight Leg Raise: positive at 30 degrees right side/ left side Gaenslen's Test positive Sacral spine : Severe tenderness over the Sacroiliac joint: right side / left side Range of motion: Flexion of the lumbar spine <60 degrees Range of motion: Extension of the lumbar spine <20 degrees Gaenslen's Test positive right side / left side Blaise test: positive right side / left side Thigh Thrust Test positive right side / left side Sacral Thrust Test positive right side / left side Assessment and plan: Chronic LBP secondary to lumbar DDD, spondylosis with facet arthropathy without myelopathy Pt exhibited substantial pain relief of the lower lumbar spine from the RFA. She will manage residual pain at home and will follow up w Dr Herron for her lumbar vertebral fracture and may return to this clinic on an as needed basis. All questions answered. I have spent less than 30 minutes on patient care today. Dr Ramon was available by phone for the evaluation of this patient. The time was used to review the medical records including relevant urine studies and Prescription history (MAPs), review of the available imaging, evaluation and examination of the patient, coordination of care with the medical staff and if applicable referring physicians, as well as creation of the medical record PQRS Narrative: Hx Alcohol Use (MH) No Home Medications: Ambulatory Orders Levothyroxine Sodium [Synthroid] 100 mcg PO QAM 11/19/22 Pioglitazone [Actos] 45 mg PO DAILY 11/19/22 metFORMIN HCL 500 mg PO BID 11/19/22 Ascorbic Acid [Vitamin C] 500 mg PO DAILY 12/08/22 Cholecalciferol [Vitamin D3 (25 Mcg = 1000 Iu)] 50 mcg PO BID 12/08/22 Losartan Potassium 100 mg PO QAM 12/08/22 Multivitamins, Thera [Multivitamin (formulary)] 1 tab PO DAILY 12/08/22 Ubidecarenone [Coenzyme Q10] 100 mg PO DAILY 12/08/22 Vitamin E (Dl,Tocopheryl Acet) [Vitamin E (400 Iu = 180 mg)] 800 unit PO DAILY 12/08/22 amLODIPine [Norvasc] 5 mg PO QAM 12/08/22 timoloL maleate [timoloL maleate 0.25%] 1 applic BOTH EYES BID 12/08/22 Acetaminophen [Tylenol 8 Hour] 650 mg PO Q6H PRN 01/05/23 LORazepam [Lorazepam] 0.5 mg PO BID PRN 01/05/23 Meloxicam [Mobic] 7.5 mg PO BID 01/05/23 traMADol HCL 50 mg PO TID PRN 01/05/23 Controlled Substance Measures - Controlled Substance Measures Is patient prescribed a controlled substance at discharge?: No
== END ==
LOC: PNWHC3 10:27
PROVIDERS: ATTEND Specialist
DX: M51.36 Other intervertebral disc degeneration, lumbar region (principal); M47.816 Spondylosis without myelopathy or radiculopathy, lumbar region; Z88.2 Allergy status to sulfonamides; Z91.02 Food additives allergy status; Z91.09 Other allergy status, other than to drugs and biological substances; Z88.1 Allergy status to other antibiotic agents; Z88.0 Allergy status to penicillin; Z88.8 Allergy status to other drugs, medicaments and biological substances
CPT/HCPCS: 99211

== ENCOUNTER → 2023-05-27 | Outpatient (CLI) | payer MEDICARE, BC ==
[2023-05-27 09:18] VITALS: BP 146/83; PULSE 82; RESP 16; TEMP 97.8
--- NOTE | 2023-05-27 13:18 | P.PAINPG ---
PQRS Measure Charge Sheet Comment: A 82 yr old female w daughter at side with a history of severe and chronic LBP secondary to lumbar DDD and spondylosis with facet arthropathy without myelopathy presents today for evaluation s/p BL RFA L4-L5, L5-S1. Pt states she experienced 90% pain relief x 5-6 mo s/p procedure. Pain level is provoked at 8 /10 in intensity, constant, localized in the lumbar spine, achy in character w shooting towards the BLEs. Pain is provoked by walking. Pain is alleviated with medications, injections, ice, heat, PT x 6 wks from November 2022, use of a lumbar support brace, repositioning and rest. Oswestry axial pain score of 28. Interventional pain procedures completed include BL RFA L3-L5 x1 (Dec 2022) Patient is currently on Tramadol, Tyl, Mobic, Salon Pas Patient denies any side effects of the medication(s), denies excessive drowsiness or sleepiness, denies suicidal ideation and reports that the current pain medication is helping to control the pain and improve activities of daily living. Patient denies any motor or sensory deficits. Patient denies any fever or night sweats, denies any change in the bowel movements or urination. Physical Examination: -Constitutional: Cooperative. Not in acute distress . - Neurologic: Cranial nerve II to XII intact. No focal neurological deficits. - Psychatric: Alert & oriented x 3. Matching mood & appropriate affect. Judgment and insight intact. - Musculoskeletal: Cervical spine: Muscle bulk/ tone/ strength in the bilateral upper extremities normal Vertebral body tenderness to palpation over Spurling test positive Distraction test positive Facet loading test positive TTP Thoracic spine Muscle bulk / tone/ strength in the bilateral paraspinal muscles normal Vertebral body tender to palpation over Facet loading test positive TTP Lumbar spine: Motor bulk/ tone/ strength lower extremities , thigh and legs : 5/5 Deep tendon reflexes : Normal Knee Jerk. Normal Ankle Jerk . Vertebral body tenderness to palpation Lumbar Facet Loading Test positive over BL L4-L5, L5-S1 Straight Leg Raise: positive at 30 degrees right side/ left side Gaenslen's Test positive Sacral spine : Severe tenderness over the Sacroiliac joint: right side / left side Range of motion: Flexion of the lumbar spine <60 degrees Range of motion: Extension of the lumbar spine <20 degrees Gaenslen's Test positive right side / left side Blaise test: positive right side / left side Thigh Thrust Test positive right side / left side Sacral Thrust Test positive right side / left side Assessment and plan: Chronic LBP secondary to lumbar DDD, spondylosis with facet arthropathy without myelopathy Recommendation of BL RFA L4-L5, L5-S1. Pt exhibited substantial pain relief w prior RFA of the BL L4-L4, L5-S1 from Dec 2022, risks, benefits of procedure discussed and patient verbalized understanding. Protocol for discontinuation/continuation of medications surrounding procedure discussed. All questions answered. I have spent less than 30 minutes on patient care today. Dr Ramon was available by phone for the evaluation of this patient. The time was used to review the medical records including relevant urine studies and Prescription history (MAPs), review of the available imaging, evaluation and examination of the patient, coordination of care with the medical staff and if applicable referring physicians, as well as creation of the medical record PQRS Narrative: Hx Alcohol Use (MH) No Home Medications: Ambulatory Orders Levothyroxine Sodium [Synthroid] 100 mcg PO QAM 11/19/22 Pioglitazone [Actos] 45 mg PO DAILY 11/19/22 metFORMIN HCL 500 mg PO BID 11/19/22 Ascorbic Acid [Vitamin C] 500 mg PO DAILY 12/08/22 Cholecalciferol [Vitamin D3 (25 Mcg = 1000 Iu)] 50 mcg PO BID 12/08/22 Losartan Potassium 100 mg PO QAM 12/08/22 Multivitamins, Thera [Multivitamin (formulary)] 1 tab PO DAILY 12/08/22 Ubidecarenone [Coenzyme Q10] 100 mg PO DAILY 12/08/22 Vitamin E (Dl,Tocopheryl Acet) [Vitamin E (400 Iu = 180 mg)] 800 unit PO DAILY 12/08/22 amLODIPine [Norvasc] 5 mg PO QAM 12/08/22 timoloL maleate [timoloL maleate 0.25%] 1 applic BOTH EYES BID 12/08/22 Acetaminophen [Tylenol 8 Hour] 650 mg PO Q6H PRN 01/05/23 LORazepam [Lorazepam] 0.5 mg PO BID PRN 01/05/23 Meloxicam [Mobic] 7.5 mg PO BID 01/05/23 traMADol HCL 50 mg PO TID PRN 01/05/23 Controlled Substance Measures - Controlled Substance Measures Is patient prescribed a controlled substance at discharge?: No
== END ==
LOC: PNWHC3 08:45
PROVIDERS: ATTEND Specialist
DX: M51.37 Other intervertebral disc degeneration, lumbosacral region (principal); M47.817 Spondylosis without myelopathy or radiculopathy, lumbosacral region; G89.29 Other chronic pain; Z88.8 Allergy status to other drugs, medicaments and biological substances; Z91.018 Allergy to other foods; Z88.2 Allergy status to sulfonamides; Z91.048 Other nonmedicinal substance allergy status
CPT/HCPCS: 99211

== ENCOUNTER → 2023-07-09 | Outpatient (CLI) | payer MEDICARE, BC ==
[2023-07-09 11:18] VITALS: BP 142/82; PULSE 80; RESP 16; TEMP 98.1
--- NOTE | 2023-07-09 11:23 | P.PAINPG ---
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 Pt states she experienced >70% pain relief x 6 mo s/p BL RFA from Dec 2022. She admits she can walk only for 5 min without use of a lumbar support brace without the procedure. Pain level is provoked at 8 /10 in intensity, constant, localized in the lumbar spine, achy in character w shooting towards the BLEs. Pain is provoked by walking for periods of 20 min or more. Pain is alleviated with medications, injections, ice, heat, PT x 6 wks from November 2022, physician guided exercises/ stretches daily since Nov 2022 at her assisted living facility, use of a walker for ambulatory assistance, repositioning and rest. Oswestry axial pain score of 28. Interventional pain procedures completed include BL RFA L3-L5 x1 (Dec 2022) Patient is currently on Tramadol, Tyl, Mobic, Salon Pas Patient denies any side effects of the medication(s), denies excessive drowsiness or sleepiness, denies suicidal ideation and reports that the current pain medication is helping to control the pain and improve activities of daily living. Patient denies any motor or sensory deficits. Patient denies any fever or night sweats, denies any change in the bowel movements or urination. Physical Examination: -Constitutional: Cooperative. Not in acute distress . - Neurologic: Cranial nerve II to XII intact. No focal neurological deficits . - Psychatric: Alert & oriented x 3. Matching mood & appropriate affect. Judgment and insight intact. - Musculoskeletal: Cervical spine: Muscle bulk/ tone/ strength in the bilateral upper extremities normal Vertebral body tenderness to palpation over Spurling test positive Distraction test positive Facet loading test positive TTP Thoracic spine Muscle bulk / tone/ strength in the bilateral paraspinal muscles normal Vertebral body tender to palpation over Facet loading test positive TTP Lumbar spine: Motor bulk/ tone/ strength lower extremities , thigh and legs : 5/5 Deep tendon reflexes : Normal Knee Jerk. Normal Ankle Jerk . Vertebral body tenderness to palpation Lumbar Facet Loading Test positive over BL L4-L5, L5-S1 Straight Leg Raise: positive at 30 degrees right side/ left side Gaenslen's Test positive Sacral spine : Severe tenderness over the Sacroiliac joint: right side / left side Range of motion: Flexion of the lumbar spine <60 degrees Range of motion: Extension of the lumbar spine <20 degrees Gaenslen's Test positive right side / left side Blaise test: positive right side / left side Thigh Thrust Test positive right side / left side Sacral Thrust Test positive right side / left side Assessment and plan: Chronic LBP secondary to lumbar DDD, spondylosis with facet arthropathy without myelopathy Recommendation of BL RFA L4-L5, L5-S1. Pt exhibited substantial pain relief w prior RFA of the BL L4-L4, L5-S1 from Dec 2022, risks, benefits of procedure discussed and patient verbalized understanding. Protocol for discontinuation/continuation of medications surrounding procedure discussed. All questions answered. I have spent less than 30 minutes on patient care today. Dr Ramon was available by phone for the evaluation of this patient. The time was used to review the medical records including relevant urine studies and Prescription history (MAPs), review of the available imaging, evaluation and examination of the patient, coordination of care with the medical staff and if applicable referring physicians, as well as creation of the medical record PQRS Narrative: Hx Alcohol Use (MH) No Home Medications: Ambulatory Orders Levothyroxine Sodium [Synthroid] 100 mcg PO QAM 11/19/22 Pioglitazone [Actos] 45 mg PO DAILY 11/19/22 metFORMIN HCL 500 mg PO BID 11/19/22 Ascorbic Acid [Vitamin C] 500 mg PO DAILY 12/08/22 Cholecalciferol [Vitamin D3 (25 Mcg = 1000 Iu)] 50 mcg PO BID 12/08/22 Losartan Potassium 100 mg PO QAM 12/08/22 Multivitamins, Thera [Multivitamin (formulary)] 1 tab PO DAILY 12/08/22 Ubidecarenone [Coenzyme Q10] 100 mg PO DAILY 12/08/22 Vitamin E (Dl,Tocopheryl Acet) [Vitamin E (400 Iu = 180 mg)] 800 unit PO DAILY 12/08/22 amLODIPine [Norvasc] 5 mg PO QAM 12/08/22 timoloL maleate [timoloL maleate 0.25%] 1 applic BOTH EYES BID 12/08/22 Acetaminophen [Tylenol 8 Hour] 650 mg PO Q6H PRN 01/05/23 LORazepam [Lorazepam] 0.5 mg PO BID PRN 01/05/23 Meloxicam [Mobic] 7.5 mg PO BID 01/05/23 traMADol HCL 50 mg PO TID PRN 01/05/23 Controlled Substance Measures - Controlled Substance Measures Is patient prescribed a controlled substance at discharge?: No
== END ==
LOC: PNWHC3 10:03
PROVIDERS: ATTEND Specialist
DX: M51.37 Other intervertebral disc degeneration, lumbosacral region (principal); M47.817 Spondylosis without myelopathy or radiculopathy, lumbosacral region; G89.29 Other chronic pain; Z88.8 Allergy status to other drugs, medicaments and biological substances; Z91.018 Allergy to other foods; Z88.2 Allergy status to sulfonamides; Z91.048 Other nonmedicinal substance allergy status
CPT/HCPCS: 99211

== ENCOUNTER 2023-07-31 11:44 | Day surgery (SDC) | payer MEDICARE, BC ==
[2023-07-30 08:54] VITALS: BMI 39.9
[2023-07-31] MEDS ORDERED: LACTATED RINGERS 1,000 ML IV ONE (12:25)
[2023-07-31 12:30] VITALS: RESP 16; TEMP 98.1
[2023-07-31 12:30] LABS: Glucose,Whole Blood 105 mg/dL (70-110)
[2023-07-31] MEDS ORDERED: MIDAZOLAM 2 MG/2 ML VIAL ONE (12:34)
[2023-07-31] MEDS ORDERED: fentaNYL (PF) 50 MCG/ML 2 ML AMP ONE (12:34)
[2023-07-31] MEDS ORDERED: ROPIVACAINE 5MG/ML 20ML VIAL ONE (12:39)
[2023-07-31] MEDS ORDERED: IV FLUID CONTINUATION 800 ML IV ONE (13:20)
--- NOTE | 2023-07-31 13:37 | FL ---
Intraoperative/procedural fluoroscopic services were provided for bilateral lumbar RAD frequency. Tot al fluoroscopy time is 120.8 seconds with a total of 6 submitted images to PACS. Total DAP [id number] mG ym2. Please see the operative note for further details.
[2023-07-31 13:41] VITALS: BP 110/70; PULSE 76
--- NOTE | 2023-07-31 15:00 | P.PCN ---
Date of Procedure: 07/31/23 Description of Procedure: Preprocedure diagnosis. 1. Lumbar spondylosis with facet joint arthropathy without myelopathy. 2. Lumbar degenerative disc disease. Procedure diagnosis. 1. Lumbar spondylosis with facet joint arthropathy without myelopathy. Space 2. Lumbar degenerative disc disease. Procedure.Bilateral radiofrequency thermocoagulation L3, L4 and L5 medial branch, with fluoroscopic guidance (fluoroscopy images are available in the radiology department) (to Denervate the facet joint at bilateral L4 5 and L5-S1 levels) Anesthesia. Monitored anesthesia care as per anesthesia department, moderate sedation with intravenous Versed 2 mg and fentanyl 100 g and local infiltration with ropivacaine 0.5%. EBL minimal. Procedure indication. The patient with low back pain secondary to lumbar facet arthropathy who he had more than 50% relief of her pain with previous diagnostic lumbar medial branch block with local anesthetics. Procedure description/technique. The patient was seen and identified in the preoperative area. Risks: Benefits, complications, including but not limited to risk of infection, bleeding, ALLERGIC reaction to the medications and no complete pain relief and alternatives were discussed with the patient, the patient admitted to proceed with the procedure and signed the consent. IV was started, vital signs remained stable throughout the procedure. Patient was taken to the OR and timeout was completed. The patient was placed in prone position on the procedure table. The lumbar area was prepped and draped in the usual sterile fashion. Vital signs were closely monitored during the procedure. IV sedation was used it during the procedure to decrease patient's anxiety. Using AP and then oblique fluoroscopy, the "eye of the Ankush dog" corresponding to the connection between the superior articular process and transverse process of right L4 and L5 and junction of superior articular process with the right ala of the sacrum was identified, marked and localized with 1% lidocaine. Space subsequently, a 18-gauge 100 mm radiofrequency cannula with a 10 mm active tip was advanced and guided by fluoroscopy to each of the" eyes of the Ankush dog" at right L4, L5 and ala of the sacrum. Each site then underwent sensory testing with 50 Hz and 0-1 V and motor testing at 2.5 Hz and 0-3 V with local stimulation but no radicular symptoms down the leg. Thereafter each sites underwent radiofrequency thermocoagulation at 80C at after injecting 1 mL of preservative-free 0.5% ropivacaine. Repeat radiofrequency ablation was done at each points after rotating the needle 180 with same setting. This same procedure was repeated at the level of left L4, L5 and S1 vertebral levels. RF needles were taken out. At the end of the procedure the skin was cleansed and Band-Aids were applied. Disposition patient tolerated the procedure well. No complication. She was placed in supine position and transferred to the recovery area in stable condition for observation and was discharged home from recovery room after meeting discharge criteria. Discharge instructions given to the patient by the staff. The patient were examined prior to discharge the patient will schedule a follow-up in the clinic in 2-4 weeks.
== END 2023-07-31 14:05 | disposition home or self-care (01) ==
LOC: ORPAIN 11:44
PROVIDERS: ATTEND Pain Medicine Interventional Pain Medicine
DX: M51.36 Other intervertebral disc degeneration, lumbar region (principal); M47.816 Spondylosis without myelopathy or radiculopathy, lumbar region; I10 Essential (primary) hypertension; E11.9 Type 2 diabetes mellitus without complications; E03.9 Hypothyroidism, unspecified; Z79.890 Hormone replacement therapy; Z79.84 Long term (current) use of oral hypoglycemic drugs; Z79.899 Other long term (current) drug therapy; Z88.2 Allergy status to sulfonamides; Z88.8 Allergy status to other drugs, medicaments and biological substances; Z88.9 Allergy status to unspecified drugs, medicaments and biological substances
CPT/HCPCS: 64635; 64636 ×2; J2250; J2001; J3010; J2795

== ENCOUNTER → 2023-10-01 | Outpatient (CLI) | payer MEDICARE, BC ==
[2023-10-01 10:52] VITALS: BP 89/57; PULSE 110; RESP 16
--- NOTE | 2023-10-01 14:53 | P.PAINPG ---
PQRS Measure Charge Sheet Comment: An 83 yr old female w daughter at side with a history of severe and chronic LBP secondary to lumbar DDD and spondylosis with facet arthropathy without myelopathy presents today for evaluation s/p BL RFA L3-L5. Pt states she experienced 80 % pain relief s/p procedure. Pain level is provoked at 8 /10 in intensity, constant, localized in the lumbar spine, sharp in character w occasional shooting towards the buttocks. Pain is provoked by walking for periods of 20 min or more. Pain is alleviated with medications, injections, ice, heat, PT x 6 wks from November 2022, physician guided exercises/ stretches daily since Nov 2022 at her assisted living facility, use of a walker for ambulatory assistance, repositioning and rest. Oswestry axial pain score of 26. Interventional pain procedures completed include BL RFA L3-L5 x2 (Dec 2022, Aug 2023) Patient is currently on Tramadol, Tyl, Mobic, Salon Pas Patient denies any side effects of the medication(s), denies excessive drowsiness or sleepiness, denies suicidal ideation and reports that the current pain medication is helping to control the pain and improve activities of daily living. Patient denies any motor or sensory deficits. Patient denies any fever or night sweats, denies any change in the bowel movements or urination. Physical Examination: -Constitutional: Cooperative. Not in acute distress . - Neurologic: Cranial nerve II to XII intact. No focal neurological deficits. - Psychatric: Alert & oriented x 3. Matching mood & appropriate affect. Judgment and insight intact. - Musculoskeletal: Cervical spine: Muscle bulk/ tone/ strength in the bilateral upper extremities normal Vertebral body tenderness to palpation over Spurling test positive Distraction test positive Facet loading test positive TTP Thoracic spine Muscle bulk / tone/ strength in the bilateral paraspinal muscles normal Vertebral body tender to palpation over Facet loading test positive TTP Lumbar spine: Motor bulk/ tone/ strength lower extremities , thigh and legs : 5/5 Deep tendon reflexes : Normal Knee Jerk. Normal Ankle Jerk . Vertebral body tenderness to palpation Lumbar Facet Loading Test positive over BL L4-L5, L5-S1 Straight Leg Raise: positive at 30 degrees right side/ left side Gaenslen's Test positive Sacral spine : Severe tenderness over the Sacroiliac joint: right side / left side Range of motion: Flexion of the lumbar spine <60 degrees Range of motion: Extension of the lumbar spine <20 degrees Gaenslen's Test positive right side / left side Blaise test: positive right side / left side Thigh Thrust Test positive right side / left side Sacral Thrust Test positive right side / left side Assessment and plan: Chronic LBP secondary to lumbar DDD, spondylosis with facet arthropathy without myelopathy To use silvadene topical on decubitus ulcer and use of "donut" and repositioning. Will follow up w her PCP. All questions answered. I have spent less than 30 minutes on patient care today. Dr Ramon was available by phone for the evaluation of this patient. The time was used to review the medical records including relevant urine studies and Prescription history (MAPs), review of the available imaging, evaluation and examination of the patient, coordination of care with the medical staff and if applicable referring physicians, as well as creation of the medical record PQRS Narrative: Hx Alcohol Use (MH) No Home Medications: Ambulatory Orders Pioglitazone [Actos] 45 mg PO DAILY 11/19/22 metFORMIN HCL 500 mg PO BID 11/19/22 Ascorbic Acid [Vitamin C] 500 mg PO DAILY 12/08/22 Cholecalciferol [Vitamin D3 (25 Mcg = 1000 Iu)] 25 mcg PO BID 12/08/22 Losartan Potassium 100 mg PO QAM 12/08/22 Multivitamins, Thera [Multivitamin (formulary)] 1 tab PO DAILY 12/08/22 Ubidecarenone [Coenzyme Q10] 100 mg PO DAILY 12/08/22 Vitamin E (Dl,Tocopheryl Acet) [Vitamin E (400 Iu = 180 mg)] 800 unit PO DAILY 12/08/22 amLODIPine [Norvasc] 5 mg PO QAM 12/08/22 timoloL maleate [timoloL maleate 0.25%] 1 applic BOTH EYES BID 12/08/22 Meloxicam [Mobic] 7.5 mg PO BID 01/05/23 Calcium Carbonate [Calcium] 600 mg PO DAILY 07/30/23 Furosemide [Lasix] 20 mg PO DAILY 07/30/23 Levothyroxine Sodium [Synthroid] 75 mcg PO DAILY 07/30/23 Niacin 500 mg PO DAILY 07/30/23 Pyridoxine HCl (Vitamin B6) [Vitamin B-6] 100 mg PO DAILY 07/30/23 SILVER sulfADIAZINE CREAM [Silvadene Cream] 1 applic TOPICAL BID 30 Days #85 gram 10/01/23 Controlled Substance Measures - Controlled Substance Measures Is patient prescribed a controlled substance at discharge?: No
== END ==
LOC: PNWHC3 10:15
PROVIDERS: ATTEND Specialist
DX: M51.37 Other intervertebral disc degeneration, lumbosacral region (principal); M47.817 Spondylosis without myelopathy or radiculopathy, lumbosacral region; G89.29 Other chronic pain; Z91.018 Allergy to other foods; Z88.2 Allergy status to sulfonamides; Z91.048 Other nonmedicinal substance allergy status; Z88.8 Allergy status to other drugs, medicaments and biological substances; Z88.1 Allergy status to other antibiotic agents
CPT/HCPCS: 99211

== ENCOUNTER → 2023-11-11 | Day surgery (SDC) | payer MEDICARE, BC ==
[~2023-11-11] MED LIST: LIDOCAINE 1% (10MG/ML) FOR IV START INTRADERMA PRN; LIDOCAINE 1% INJ 10MG/ML (20 ML MDV) ONE; PROPOFOL 10 MG/ML 20 ML VIAL IV ONE
[2023-11-11] MEDS: LACTATED RINGERS 1,000 ML IV SCH (09:25)
[2023-11-11 09:27] LABS: Glucose,Whole Blood 89 mg/dL (70-110)
[2023-11-11 09:31] VITALS: TEMP 99.1
--- NOTE | 2023-11-11 09:44 | P.PCN ---
Date of Procedure: 11/11/23 Procedure(s) Performed: BRIEF HISTORY: Patient is a 83-year-old, pleasant, female scheduled for an upper endoscopy as a part of evaluation of GERD and intermittent dysphagia to solids.. PROCEDURE PERFORMED: Esophagogastroduodenoscopy with biopsy. PREOPERATIVE DIAGNOSIS: GERD and intermittent dysphagia to solids. IV sedation per anesthesia. PROCEDURE: After informed consent was obtained, the patient was brought into the endoscopy unit. IV sedation was administered by Anesthesia under continuous monitoring. Initially the Olympus GIF-140 video endoscope was inserted into the mouth. Esophagus intubated without any difficulty. It was gradually advanced into the stomach and duodenum and carefully examined. The bulb the duodenum appeared normal. Along the duodenal sweep there was a tight duodenal stricture identified and the scope could not be advanced to the second part of the duodenum. The stricture appeared benign with no ulcerations identified. The scope at this time was withdrawn to the stomach, adequately insufflated with air, and upon careful examination, mucosa of the antrum had mild gastritis and biopsies were done from this area. Mucosa of the, body, cardia and the fundus appeared normal. The scope was then withdrawn into the esophagus. Small hiatal hernia noted. The GE junction was located at 39 cm from the incisors. The esophagus appeared normal. There were no erosions or ulcerations seen. The proximal cervical esophagus was carefully examined which appeared normal. No evidence of esophageal stricture. Biopsies were done from the distal esophagus and the patient tolerated the procedure well. IMPRESSION: 1. Small hiatal hernia but no evidence of esophagitis or esophageal stricture. 2. Mild antral gastritis 3. 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 RECOMMENDATIONS: The findings of this examination were discussed with the rossana ent well as her family. She was advised to follow with the biopsy results. Advised on a soft diet. Follow up in office she has worsening symptoms..
[2023-11-11 10:02] VITALS: RESP 14
[2023-11-11 10:33] VITALS: BP 128/74; PULSE 79
[2023-11-11 10:36] LABS: Glucose,Whole Blood 83 mg/dL (70-110)
== END ==
LOC: ORWHC2ENDO 08:36
PROVIDERS: ATTEND Internal Medicine Gastroenterology
DX: K29.50 Unspecified chronic gastritis without bleeding (principal); K21.9 Gastro-esophageal reflux disease without esophagitis; K31.5 Obstruction of duodenum; I10 Essential (primary) hypertension; F17.200 Nicotine dependence, unspecified, uncomplicated; E11.9 Type 2 diabetes mellitus without complications; Z79.84 Long term (current) use of oral hypoglycemic drugs; Z79.899 Other long term (current) drug therapy; Z88.2 Allergy status to sulfonamides; Z88.8 Allergy status to other drugs, medicaments and biological substances
CPT/HCPCS: 43239; J2001; J2704; 88305

== ENCOUNTER 2024-03-22 18:19 | Inpatient (IN) | payer MEDICARE, BC ==
--- NOTE | 2024-03-22 18:39 | ED ---
Recheck HPI - General Source: patient, family, RN notes reviewed <Zamzam Adamson - Last Filed: 03/22/24 18:38> <Wilson Paul - Last Filed: 03/22/24 22:22> - General Stated Complaint: abn labs Time Seen by Provider: 03/22/24 18:30 - History of Present Illness Initial Comments: Quick Note- this is an 83-year-old female presents to the emergency department by her family with chief complaint of abnormal labs. Family states that she was advised by her bible teacher to report to the emergency department due to worsening kidney function. Patient has a history of chronic kidney disease, den ies history of dialysis. Currently patient is denying symptoms of dizziness, lightheadedness, chest pain, palpitations, weakness, changes in urinary frequency or urgency. (Zamzam Adamson) 83-year-old female with a past medical history significant for type 2 diabetes, hypertension, hyperlipidemia, hypothyroidism, chronic low back pain, chronic anasarca and edema, recurrent UTI, with recent admission found to have acute kidney injury and A-fib RVR on Xarelto and metoprolol presenting to the ED with chief complaint of abnormal labs. Recent echo also showed EF 30-35%. Patient reports that she had labs drawn yesterday which reportedly showed abnormal kidney function and was advised by Dr. Curtis of nephrology to present to the ED for further evaluation. At this time patient currently has no complaints. Denies chest pain, shortness of breath, dizziness, abdominal pain, changes in bowel or bladder habits. (Wilson Paul) - Related Data Home Medications Medication Instructions Recorded Confirmed Acetaminophen Tab [Tylenol] 650 mg PO Q4H PRN 02/09/24 03/22/24 Acetaminophen [Tylenol Arthritis] 650 mg PO TID PRN 02/09/24 03/22/24 Calcium Carbonate [Tums] 1,000 mg PO Q2H PRN 02/09/24 03/22/24 Cetirizine HCl [Zyrtec] 10 mg PO DAILY PRN 02/09/24 03/22/24 DULoxetine HCL [Cymbalta] 20 mg PO DAILY@89902/09/24 03/22/24 Docusate Sodium [Dok] 100 mg PO DAILY@89902/09/24 03/22/24 Levothyroxine Sodium [Synthroid] 100 mcg PO MOTUWEFRSA@69902/09/24 03/22/24 Levothyroxine Sodium [Synthroid] 150 mcg PO SUTH@69902/09/24 03/22/24 Magnesium Hydroxide [Milk of 2,400 mg PO DAILY PRN 02/09/24 03/22/24 Magnesia] Menthol [Biofreeze] 1 applic TOPICAL QID PRN 02/09/24 03/22/24 Ondansetron [Zofran] 4 mg PO TID PRN 02/09/24 03/22/24 Timolol 0.5% Ophth Soln [Timoptic 1 drop BOTH EYES BID@799,199902/09/24 03/22/24 0.5% Ophth Soln] guaiFENesin [guaiFENesin Oral 100 mg PO Q4H PRN 02/09/24 03/22/24 Solution] traMADol HCL 50 mg PO Q8H PRN 02/09/24 03/22/24 Bismuth Subsalicylate [Kaopectate] 262 mg PO Q4H PRN 03/22/24 03/22/24 Empagliflozin [Jardiance] 10 mg PO AC-BRKFST@69903/22/24 03/22/24 Furosemide [Lasix] 40 mg PO Q48H 03/22/24 03/22/24 Ibuprofen [Motrin Ib] 400 mg PO Q6H PRN 03/22/24 03/22/24 Losartan Potassium [Cozaar] 100 mg PO DAILY@89903/22/24 03/22/24 Magnesium Oxide [Mag-Ox] 400 mg PO BID@799,199903/22/24 03/22/24 Metoprolol Tartrate [Lopressor] 25 mg PO BID@799,199903/22/24 03/22/24 Potassium Chloride ER [K-Dur 20] 20 meq PO Q48H 03/22/24 03/22/24 Rivaroxaban [Xarelto] 15 mg PO W/SUPPER@1700 03/22/24 03/22/24 Sodium Bicarbonate 325 mg PO DAILY@79903/22/24 03/22/24 amLODIPine [Norvasc] 5 mg PO DAILY@0900 03/22/24 03/22/24 Previous Rx's Medication Instructions Recorded HYDROcodone/APAP 5-325MG [[place] 1 tab PO Q4HR PRN 3 Days #15 tab 11/30/23 5-325] Allergies Allergy/AdvReac Type Severity Reaction Status Date / Time clindamycin Allergy Anaphylaxis Verified 03/22/24 20:23 cranberry Allergy Swelling Verified 03/22/24 20:23 gabapentin [From Neurontin] Allergy Unknown Verified 03/22/24 20:23 grape Allergy Swelling Verified 03/22/24 20:23 pseudoephedrine Allergy Anaphylaxis Verified 03/22/24 20:23 [From Sudafed] Sulfa (Sulfonamide Allergy Unknown Verified 03/22/24 20:23 Antibiotics) glue on teristrips Allergy Unknown Uncoded 03/22/24 19:06 Review of Systems ROS Other: All systems not noted in ROS Statement are negative. <Zamzam Adamson - Last Filed: 03/22/24 18:38> ROS Other: All systems not noted in ROS Statement are negative. <Wilson Paul - Last Filed: 03/22/24 22:22> ROS Statement: Those systems with pertinent positive or pertinent negative responses have been documented in the HPI. Past Medical History Past Medical History: Diabetes Mellitus, Hypertension, Thyroid Disorder Additional Past Medical History / Comment(s): back pain, questioning ulcer, repeated issues with stomach pain, prolonged episodes of dehydration, vomiting, hepatitis as a child History of Any Multi-Drug Resistant Organisms: None Reported Past Surgical History: Section, Hernia Repair, Hysterectomy, Joint Replacement, Orthopedic Surgery Additional Past Surgical History / Comment(s): Back injections-pain clinic, mult abd hernia repairs, right ankle surg with 4 rods, right knee replaced/revision lft knee replaced Past Anesthesia/Blood Transfusion Reactions: No Reported Reaction Additional Past Anesthesia/Blood Transfusion Reaction / Comment(s): no hx blood transfusion Past Psychological History: No Psychological Hx Reported Smoking Status: Never smoker Past Alcohol Use History: None Reported Past Drug Use History: None Reported - Past Family History Mother Family Medical History: No Reported History Father Additional Family Medical History / Comment(s): throat CA, mult MIs Sister(s) Family Medical History: Cancer Additional Family Medical History / Comment(s): 2 sisters have had CA-passed <Zamzam Adamson - Last Filed: 03/22/24 18:38> General Exam <Zamzam Adamson - Last Filed: 03/22/24 18:38> General appearance: alert, in no apparent distress Eye exam: Present: normal appearance Neck exam: Present: normal inspection Respiratory exam: Present: normal lung sounds bilaterally Cardiovascular Exam: Present: tachycardia, irregular rhythm GI/Abdominal exam: Present: soft, normal bowel sounds. Absent: distended, tenderness, guarding, rebound, rigid Neurological exam: Present: alert, oriented X3 Skin exam: Present: warm, dry <Wilson Paul - Last Filed: 03/22/24 22:22> - General Exam Comments Initial Comments: Visual Physical Exam Vital signs reviewed General: Well-appearing, nontoxic, no acute distress. Head: Normocephalic, atraumatic Eyes: PERRLA, EOMI ENT: Airway patent Chest: Nonlabored breathing Skin: No visual rash, normal skin tone Neuro: Alert and oriented 3 Musculoskeletal: No gross abnormalities (Zamzam Adamson) Course Vital Signs 03/22/24 03/22/24 03/22/24 19:02 19:31 22:12 Temperature 97.7 F Pulse Rate 110 H 117 H Respiratory 18 18 16 Rate Blood Pressure 93/65 101/65 101/58 O2 Sat by Pulse 96 98 98 Oximetry Medical Decision Making <Zamzam Adamson - Last Filed: 03/22/24 18:38> - Lab Data Result diagrams: 03/22/24 19:51 03/22/24 19:51 <Wilson Paul - Last Filed: 03/22/24 22:22> - Medical Decision Making I completed the quick note portion of this chart signed Zamzam Adamson PA-C (Zamzam Adamson) Was pt. sent in by a medical professional or institution (JOSAFAT Ivey, NON DESTRUCTIVE EVALUATION SPECIALIST, urgent care, hospital, or longterm...) When possible be specific @ -No Did you speak to anyone other than the patient for history (EMS, parent, family, police, friend...)? What history was obtained from this source @ -No Did you review nursing and triage notes (agree or disagree)? Why? @ -I reviewed and agree with nursing and triage notes Were old charts reviewed (outside hosp., previous admission, EMS record, old EKG, old radiological studies, urgent care reports/EKG's, longterm records)? Report findings @ -No old charts were reviewed Differential Diagnosis (chest pain, altered mental status, abdominal pain women, abdominal pain men, vaginal bleeding, weakness, fever, dyspnea, syncope, headache, dizziness, GI bleed, back pain, seizure, CVA, palpatations, mental health, musculoskeletal)? @ -Differential Chest Pain: Stable Angina, Unstable Angina, STEMI, NSTEMI Aortic Dissection, Pneumothorax, Musculoskeletal, Esophageal Spasm GERD, Cholecystitis, Pancreatitis, Zoster, this is not meant to be an all-inclusive list. EKG interpreted by me (3pts min.). @ -EKG interpreted me showing A-fib with rapid ventricular rate 16/min without acute ST or T wave changes. QRS 83, QT/QTc 202/271. X-rays interpreted by me (1pt min.). @ -None done CT interpreted by me (1pt min.). @ -None done U/S interpreted by me (1pt. min.). @ -None done What testing was considered but not performed or refused? (CT, X-rays, U/S, labs)? Why? @ -None What meds were considered but not given or refused? Why? @ -None Did you discuss the management of the patient with other professionals (professionals i.e. , PA, NON DESTRUCTIVE EVALUATION SPECIALIST, lab, RT, psych nurse, clinical social worker, marine welder, teacher, chief sales officer, field case manager)? Give summary @ -Case discussed with Bettina, who accepts admission to [facility] as Dr. Espinoza is currently off. Was smoking cessation discussed for >3mins.? @ -No Was critical care preformed (if so, how long)? @ -No Were there social determinants of health that impacted care today? How? (Homelessness, low income, unemployed, alcoholism, drug addiction, transportation, low edu. Level, literacy, decrease access to med. care, [place] [facility], rehab)? @ -No Was there de-escalation of care discussed even if they declined (Discuss DNR or withdrawal of care, Hospice)? DNR status @ -No What co-morbidities impacted this encounter? (DM, HTN, Smoking, COPD, CAD, Cancer, CVA, ARF, Chemo, Hep., AIDS, mental health diagnosis, sleep apnea, morbid obesity)? @ -A-fib Was patient admitted / discharged? Hospital course, mention meds given and route, prescriptions, significant lab abnormalities, going to OR and other pertinent info. @ -Admission 83-year-old female presenting to the ED with complaints of abnormal labs. Laboratory studies reviewed. CBC largely unremarkable. Chemistry panel significant for BUN and creatinine of 75 and 3.45 respectively with estimated GFR of 12. Troponin undetectable. UA shows possible evidence of infection with moderate leukocyte esterase, 7 white blood cells, rare bacteria. Patient at this time is asymptomatic for UTI. Patient will be admitted for gentle hydration secondary to acute kidney injury with consults to nephrology and cardiology. In regards to A-fib with RVR patient is currently rate controlled in the low 100s. Undiagnosed new problem with uncertain prognosis? @ -No Drug Therapy requiring intensive monitoring for toxicity (Heparin, Nitro, Insulin, Cardizem)? @ -No Were any procedures done? @ -No Diagnosis/symptom? @ -Acute kidney injury Acute, or Chronic, or Acute on Chronic? @ -Acute Uncomplicated (without systemic symptoms) or Complicated (systemic symptoms)? @ -Complicated Side effects of treatment? @ -No Exacerbation, Progression, or Severe Exacerbation? @ -No Poses a threat to life or bodily function? How? (Chest pain, [place], [place], pneumonia, PE, COPD, DKA, ARF, appy, cholecystitis, CVA, Diverticulitis, Homicidal, Suicidal, threat to staff... and all critical care pts) @ -Possibly however unlikely (Wilson Paul) - Lab Data Lab Results 03/22/24 03/22/24 03/22/24 Range/Units 19:51 19:51 19:51 WBC 6.0 (3.8-10.6) k/uL RBC 3.10 L (3.80-5.40) m/uL Hgb 9.8 L (11.4-16.0) gm/dL Hct 31.6 L (34.0-46.0) % MCV 102.1 H (80.0-100.0) fL MCH 31.6 (25.0-35.0) pg MCHC 30.9 L (31.0-37.0) g/dL RDW 12.7 (11.5-15.5) % Plt Count 287 (150-450) k/uL MPV 8.5 Neutrophils % 74 % Lymphocytes % 12 % Monocytes % 8 % Eosinophils % 3 % Basophils % 1 % Neutrophils # 4.4 (1.3-7.7) k/uL Lymphocytes # 0.7 L (1.0-4.8) k/uL Monocytes # 0.5 (0-1.0) k/uL Eosinophils # 0.2 (0-0.7) k/uL Basophils # 0.1 (0-0.2) k/uL Macrocytosis Slight PT 11.5 (10.0-12.5) sec INR 1.1 (<1.2) APTT 29.6 (22.0-30.0) sec Sodium 134 L (137-145) mmol/L Potassium 4.7 (3.5-5.1) mmol/L Chloride 103 (98-107) mmol/L Carbon Dioxide 24 (22-30) mmol/L Anion Gap 7 mmol/L BUN 75 H (7-17) mg/dL Creatinine 3.45 H (0.52-1.04) mg/dL Est GFR (CKD-EPI)AfAm 13 (>60 ml/min/1.73 sqM) Est GFR (CKD-EPI)NonAf 12 (>60 ml/min/1.73 sqM) Glucose 119 H (74-99) mg/dL Calcium 9.0 (8.4-10.2) mg/dL Phosphorus 5.1 H (2.5-4.5) mg/dL Magnesium 2.2 (1.6-2.3) mg/dL Total Bilirubin 0.6 (0.2-1.3) mg/dL AST 18 (14-36) U/L ALT 10 (4-34) U/L Alkaline Phosphatase 124 (38-126) U/L Troponin I (0.000-0.034) ng/mL Total Protein 6.3 (6.3-8.2) g/dL Albumin 3.5 (3.5-5.0) g/dL Urine Color Urine Appearance (Clear) Urine pH (5.0-8.0) Ur Specific [place] (1.001-1.035) Urine Protein (Negative) Urine Glucose (UA) (Negative) Urine Ketones (Negative) Urine Blood (Negative) Urine Nitrite (Negative) Urine Bilirubin (Negative) Urine Urobilinogen (<2.0) mg/dL Ur Leukocyte Esterase (Negative) Urine RBC (0-5) /hpf Urine WBC (0-5) /hpf Ur Squamous Epith Cells (0-4) /hpf Urine Bacteria (None) /hpf Urine Mucus (None) /hpf 03/22/24 03/22/24 Range/Units 19:51 21:16 WBC (3.8-10.6) k/uL RBC (3.80-5.40) m/uL Hgb (11.4-16.0) gm/dL Hct (34.0-46.0) % MCV (80.0-100.0) fL MCH (25.0-35.0) pg MCHC (31.0-37.0) g/dL RDW (11.5-15.5) % Plt Count (150-450) k/uL MPV Neutrophils % % Lymphocytes % % Monocytes % % Eosinophils % % Basophils % % Neutrophils # (1.3-7.7) k/uL Lymphocytes # (1.0-4.8) k/uL Monocytes # (0-1.0) k/uL Eosinophils # (0-0.7) k/uL Basophils # (0-0.2) k/uL Macrocytosis PT (10.0-12.5) sec INR (<1.2) APTT (22.0-30.0) sec Sodium (137-145) mmol/L Potassium (3.5-5.1) mmol/L Chloride (98-107) mmol/L Carbon Dioxide (22-30) mmol/L Anion Gap mmol/L BUN (7-17) mg/dL Creatinine (0.52-1.04) mg/dL Est GFR (CKD-EPI)AfAm (>60 ml/min/1.73 sqM) Est GFR (CKD-EPI)NonAf (>60 ml/min/1.73 sqM) Glucose (74-99) mg/dL Calcium (8.4-10.2) mg/dL Phosphorus (2.5-4.5) mg/dL Magnesium (1.6-2.3) mg/dL Total Bilirubin (0.2-1.3) mg/dL AST (14-36) U/L ALT (4-34) U/L Alkaline Phosphatase (38-126) U/L Troponin I <0.012 (0.000-0.034) ng/mL Total Protein (6.3-8.2) g/dL Albumin (3.5-5.0) g/dL Urine Color Colorless Urine Appearance Clear (Clear) Urine pH 7.0 (5.0-8.0) Ur Specific [place] 1.009 (1.001-1.035) Urine Protein Trace H (Negative) Urine Glucose (UA) Negative (Negative) Urine Ketones Negative (Negative) Urine Blood Negative (Negative) Urine Nitrite Negative (Negative) Urine Bilirubin Negative (Negative) Urine Urobilinogen <2.0 (<2.0) mg/dL Ur Leukocyte Esterase Moderate H (Negative) Urine RBC 2 (0-5) /hpf Urine WBC 7 H (0-5) /hpf Ur Squamous Epith Cells 1 (0-4) /hpf Urine Bacteria Rare H (None) /hpf Urine Mucus Rare H (None) /hpf Disposition <Zamzam Adamson - Last Filed: 03/22/24 18:38> Time of Disposition: 22:00 <Wilson Paul - Last Filed: 03/22/24 22:22> Clinical Impression: BLAKE (acute kidney injury) Disposition: ADMITTED IP TO THIS HOSP Condition: Fair Referrals: Adriano Espinoza MD [Primary Care Provider] - 1-2 days
[2024-03-22 20:02] LABS: Basophils # (A) 0.1 k/uL (0-0.2); Basophils % (A) 1 %; Eosinophils # (A) 0.2 k/uL (0-0.7); Eosinophils % (A) 3 %; HCT 31.6 % (34.0-46.0); HGB 9.8 gm/dL (11.4-16.0); Lymphocytes # (A) 0.7 k/uL (1.0-4.8); Lymphocytes % (A) 12 %; MCH 31.6 pg (25.0-35.0); MCHC 30.9 g/dL (31.0-37.0); MCV 102.1 fL (80.0-100.0); Macrocytosis Slight; Mean Platelet Volume 8.5; Monocytes # (A) 0.5 k/uL (0-1.0); Monocytes % (A) 8 %; Neutrophils # (A) 4.4 k/uL (1.3-7.7); Neutrophils % (A) 74 %; Platelet Count 287 k/uL (150-450); RDW 12.7 % (11.5-15.5)
[2024-03-22 20:15] LABS: ALT 10 U/L (4-34); AST 18 U/L (14-36); African American GFR (CKD) 13 (>60 ml/min/1.73 sqM); Albumin 3.5 g/dL (3.5-5.0); Alkaline Phosphatase 124 U/L (38-126); Anion Gap 7 mmol/L; Blood Urea Nitrogen 75 mg/dL (7-17); Carbon Dioxide 24 mmol/L (22-30); Chloride 103 mmol/L (98-107); Glucose 119 mg/dL (74-99); Magnesium 2.2 mg/dL (1.6-2.3); Non-African American GFR(CKD) 12 (>60 ml/min/1.73 sqM); Phosphorus 5.1 mg/dL (2.5-4.5); Potassium 4.7 mmol/L (3.5-5.1); Sodium 134 mmol/L (137-145); Total Bilirubin 0.6 mg/dL (0.2-1.3); Total Protein 6.3 g/dL (6.3-8.2)
[2024-03-22 20:18] LABS: INR 1.1 (<1.2); Partial Thromboplastin Time 29.6 sec (22.0-30.0); Prothrombin Time 11.5 sec (10.0-12.5)
[2024-03-22] MEDS: METOPROLOL TARTRATE 25 MG TAB PO STA (20:49)
[2024-03-22 21:37] LABS: Appearance,Urine Clear (Clear); Bacteria,Urine Rare /hpf; Bilirubin,Urine Negative (Negative); Blood,Urine Negative (Negative); Color,Urine Colorless; Glucose,Urine (UA) Negative (Negative); Ketones,Urine Negative (Negative); Leukocyte Esterase,Urine Moderate (Negative); Mucus,Urine Rare /hpf; Nitrite,Urine Negative (Negative); Protein,Urine Trace (Negative); RBC,Urine 2 /hpf (0-5); Specific Gravity,Urine 1.009 (1.001-1.035); Squamous Epithelial Cell,Urine 1 /hpf (0-4); Urobilinogen,Urine <2.0 mg/dL (<2.0); WBC,Urine 7 /hpf (0-5)
[2024-03-22] MEDS ORDERED: NALOXONE 0.4 MG/ML 1 ML VIAL IV PRN (22:23)
[2024-03-22] MEDS ORDERED: ONDANSETRON 4 MG/2 ML VIAL IVP PRN (22:23)
[2024-03-23] MEDS: ACETAMINOPHEN TAB 325 MG TAB PO PRN (00:07)
[2024-03-23] MEDS: NYSTATIN 100,000 UNIT/GM POWD 15 GM TOPICAL SCH (00:08)
[2024-03-23] MEDS: SODIUM CHLORIDE 0.9% 1,000 ML IV SCH (01:28)
[2024-03-23] MEDS: LEVOTHYROXINE 100 MCG TAB PO SCH (06:49)
[2024-03-23 06:54] LABS: Glucose,Whole Blood 74 mg/dL (70-110)
[2024-03-23] MEDS: DAPAGLIFLOZIN PROPANEDIOL 5 MG TABLET PO SCH (08:15)
[2024-03-23] MEDS: METOPROLOL TARTRATE 25 MG TAB PO SCH (08:17)
[2024-03-23] MEDS ORDERED: amLODIPine 5 MG TAB PO SCH (09:00)
[2024-03-23] MEDS ORDERED: LOSARTAN 50 MG TAB PO SCH (09:00)
[2024-03-23] MEDS: FUROSEMIDE 10 MG/ML 4 ML VIAL IV SCH (09:55)
[2024-03-23] MEDS: APIXABAN 2.5 MG TABLET PO SCH (09:56)
--- NOTE | 2024-03-23 11:09 | XR ---
EXAMINATION TYPE: XR chest 1V DATE OF EXAM: 03/23/2024 COMPARISON: 02/09/2024 HISTORY: CHF TECHNIQUE: Single frontal view of the chest is obtained. FINDINGS: There is no focal air space opacity, pleural effusion, or pneumothorax seen. There is enla rgement has atherosclerotic change in the aorta. No overt failure. Diffuse osteopenia and arthropathy of the shoulders. Degenerative change of the spine. IMPRESSION: 1 cardiomegaly with no evidence of focal pneumonia or overt failure.
--- NOTE | 2024-03-23 11:19 | P.CRDCN ---
History of Present Illness Consult date: 03/23/24 Reason for Consult (text): A-fib with RVR, BLAKE, EF 30 to 35% History of present illness: This is an 83-year-old female patient of Dr. Zoe Marshall with past medical history of diabetes mellitus type 2, hypertension, hypothyroidism, gastroesophageal reflux disease, paroxysmal atrial fibrillation, newly diagnosed cardiomyopathy. Patient gives history that she had recent blood work done as an outpatient and her husbandry technician called her and told her to come into the hospital as her kidney function had worsened. Patient is not aware of the medications that she is currently taking as she is at assisted living and they do all of her medications. She states she has felt good and no symptoms. She does have some lower extremity edema bilaterally and she noted that there is been some weeping the last couple of days. Patient had a recent hospitalization in January at which time she had new onset of paroxysmal atrial fibrillation and was started on Eliquis at that time. Her home medication list is now stating that she is on Xarelto but patient does not recall any physician changing her medications. Her last follow-up in the office was with Dr. Zoe Marshall on 02/19/2024. She denies chest pain. No palpitations. Blood pressure 100/40, heart rate 82, pulse ox 97% on room air. Patient is seen today in the emergency center waiting for bed on the cardiac stepdown unit. EKG none, telemetry atrial fibrillation 77 bpm, patient presented with heart rate 130s Renal ultrasound: Left renal cyst. Laboratory studies: WBC 6, hemoglobin 9.8, platelet count 287. Sodium 134, potassium 4.7, BUN 75 creatinine 3.45, glucose 119. Phosphorus 5.1, magnesium 2.2. Troponin negative x 1. Urinalysis leukoesterase moderate WBC 7. Home cardiac medications: Amlodipine 5 mg daily, Jardiance 10 mg daily, Lasix 40 mg every 48 hours, losartan 100 mg daily, magnesium oxide 400 mg twice daily, Lopressor 25 mg twice daily, K. Dur 20 mill equivalents every 48 hours, Xarelto 50 mg with supper. Patient also on levothyroxine. Echocardiogram performed on 02/09/2024 reveals EF of 30 to 35%. RVSP 39, severe biatrial enlargement. Mild to moderate MR, mild aortic regurgitation, moderate tricuspid regurgitation. Review Of Systems: At the time of my exam: CONSTITUTIONAL: Denies fever or chills. HEENT: Denies blurred vision, vision changes, or eye pain. Denies hemoptysis CARDIOVASCULAR: Denies chest pain. Denies orthopnea. Denies PND. Denies palpitations. Reports lower extremity edema and recent weeping RESPIRATORY: Denies shortness of breath. GASTROINTESTINAL: Denies abdominal pain. Denies nausea or vomiting. HEMATOLOGIC: Denies bleeding disorders. GENITOURINARY: Denies any blood in urine. SKIN: Denies pruitis. Denies rash. Physical examination: Gen: This is an 83-year-old female in no acute distress. VS: reviewed HEENT: Head is atraumatic, normocephalic. Pupils equal, round. Sclerae is anicteric. NECK: Supple. No JVD. LUNGS: Clear to auscultation. No wheezes or rhonchi. No intercostal retractions. HEART: Irregular rate and rhythm. No murmur. ABDOMEN: Soft No tenderness. EXTREMITIES: 23+ bilateral lower extremity edema with chronic skin changes. NEUROLOGICAL: Patient is awake, alert and oriented x3. Assessment: Paroxysmal atrial fibrillation with RVR, currently rate controlled Acute kidney injury Cardiomyopathy with a EF of 30 to 35%, unknown type Mild acute on chronic systolic heart failure Diabetes mellitus type 2 Hypertension Hypothyroidism Gastroesophageal reflux disease Recent weight loss Plan: Resume patient's home cardiac medications Start patient on IV Lasix 40 mg x 2 doses every 12 hours and will transition to oral tomorrow 40 mg daily Discontinue amlodipine, Farxiga Obtain chest x-ray, 2 view Bladder scan for residual Monitor ROSE, daily weights, electrolytes and renal function No need to repeat echocardiogram as this was done in January Further recommendations to follow based upon clinical course Thank you kindly for this consultation. Nurse practitioner note has been reviewed, I agree with documented findings and plan of care. Patient was seen and examined. Past Medical History Past Medical History: Diabetes Mellitus, Hypertension, Thyroid Disorder Additional Past Medical History / Comment(s): back pain, questioning ulcer, repeated issues with stomach pain, prolonged episodes of dehydration, vomiting, hepatitis as a child History of Any Multi-Drug Resistant Organisms: None Reported Past Surgical History: Section, Hernia Repair, Hysterectomy, Joint Replacement, Orthopedic Surgery Additional Past Surgical History / Comment(s): Back injections-pain clinic, mult abd hernia repairs, right ankle surg with 4 rods, right knee replaced/revision lft knee replaced Past Anesthesia/Blood Transfusion Reactions: No Reported Reaction Additional Past Anesthesia/Blood Transfusion Reaction / Comment(s): no hx blood transfusion Past Psychological History: No Psychological Hx Reported Smoking Status: Never smoker Past Alcohol Use History: None Reported Past Drug Use History: None Reported - Past Family History Mother Family Medical History: No Reported History Father Additional Family Medical History / Comment(s): throat CA, mult MIs Sister(s) Family Medical History: Cancer Additional Family Medical History / Comment(s): 2 sisters have had CA-passed Medications and Allergies Home Medications Medication Instructions Recorded Confirmed Type HYDROcodone/APAP 5-325MG [[place] 1 tab PO Q4HR PRN 3 Days #15 tab 11/30/23 03/22/24 Rx 5-325] Acetaminophen Tab [Tylenol] 650 mg PO Q4H PRN 02/09/24 03/22/24 History Acetaminophen [Tylenol Arthritis] 650 mg PO TID PRN 02/09/24 03/22/24 History Calcium Carbonate [Tums] 1,000 mg PO Q2H PRN 02/09/24 03/22/24 History Cetirizine HCl [Zyrtec] 10 mg PO DAILY PRN 02/09/24 03/22/24 History DULoxetine HCL [Cymbalta] 20 mg PO DAILY@0902/09/24 03/22/24 History Docusate Sodium [Dok] 100 mg PO DAILY@0902/09/24 03/22/24 History Levothyroxine Sodium [Synthroid] 100 mcg PO MOTUWEFRSA@69902/09/24 03/22/24 History Levothyroxine Sodium [Synthroid] 150 mcg PO SUTH@69902/09/24 03/22/24 History Magnesium Hydroxide [Milk of 2,400 mg PO DAILY PRN 02/09/24 03/22/24 History Magnesia] Menthol [Biofreeze] 1 applic TOPICAL QID PRN 02/09/24 03/22/24 History Ondansetron [Zofran] 4 mg PO TID PRN 02/09/24 03/22/24 History Timolol 0.5% Ophth Soln [Timoptic 1 drop BOTH EYES BID@0800,199902/09/24 03/22/24 History 0.5% Ophth Soln] guaiFENesin [guaiFENesin Oral 100 mg PO Q4H PRN 02/09/24 03/22/24 History Solution] traMADol HCL 50 mg PO Q8H PRN 02/09/24 03/22/24 History Bismuth Subsalicylate [Kaopectate] 262 mg PO Q4H PRN 03/22/24 03/22/24 History Empagliflozin [Jardiance] 10 mg PO AC-BRKFST@69903/22/24 03/22/24 History Furosemide [Lasix] 40 mg PO Q48H 03/22/24 03/22/24 History Ibuprofen [Motrin Ib] 400 mg PO Q6H PRN 03/22/24 03/22/24 History Losartan Potassium [Cozaar] 100 mg PO DAILY@89903/22/24 03/22/24 History Magnesium Oxide [Mag-Ox] 400 mg PO BID@08,199903/22/24 03/22/24 History Metoprolol Tartrate [Lopressor] 25 mg PO BID@08,199903/22/24 03/22/24 History Potassium Chloride ER [K-Dur 20] 20 meq PO Q48H 03/22/24 03/22/24 History Rivaroxaban [Xarelto] 15 mg PO W/SUPPER@17003/22/24 03/22/24 History Sodium Bicarbonate 325 mg PO DAILY@0803/22/24 03/22/24 History amLODIPine [Norvasc] 5 mg PO DAILY@89903/22/24 03/22/24 History Allergies Allergy/AdvReac Type Severity Reaction Status Date / Time clindamycin Allergy Anaphylaxis Verified 03/22/24 20:23 cranberry Allergy Swelling Verified 03/22/24 20:23 gabapentin [From Neurontin] Allergy Unknown Verified 03/22/24 20:23 grape Allergy Swelling Verified 03/22/24 20:23 pseudoephedrine Allergy Anaphylaxis Verified 03/22/24 20:23 [From Sudafed] Sulfa (Sulfonamide Allergy Unknown Verified 03/22/24 20:23 Antibiotics) glue on teristrips Allergy Unknown Uncoded 03/22/24 19:06 Physical Exam Vitals: Vital Signs Temp Pulse Pulse Resp BP BP Pulse Ox 03/23/24 02:07 97.6 F 84 17 97/61 96 03/23/24 01:06 75 03/23/24 00:40 98.1 F 75 17 89/61 98 03/23/24 00:16 117 H 16 100/55 97 03/22/24 22:12 117 H 16 101/58 98 03/22/24 19:31 110 H 18 101/65 98 03/22/24 19:02 97.7 F 18 93/65 96 Intake and Output 03/22/24 03/23/24 03/23/24 22:59 06:59 14:59 Other: Voiding Method External Catheter Weight 97.25 kg Results 03/22/24 19:51 03/22/24 19:51 Cardiac Enzymes 03/22/24 03/22/24 Range/Units 19:51 19:51 AST 18 (14-36) U/L Troponin I <0.012 (0.000-0.034) ng/mL Coagulation 03/22/24 Range/Units 19:51 PT 11.5 (10.0-12.5) sec APTT 29.6 (22.0-30.0) sec CBC 03/22/24 Range/Units 19:51 WBC 6.0 (3.8-10.6) k/uL RBC 3.10 L (3.80-5.40) m/uL Hgb 9.8 L (11.4-16.0) gm/dL Hct 31.6 L (34.0-46.0) % Plt Count 287 (150-450) k/uL Comprehensive Metabolic Panel 03/22/24 Range/Units 19:51 Sodium 134 L (137-145) mmol/L Potassium 4.7 (3.5-5.1) mmol/L Chloride 103 (98-107) mmol/L Carbon Dioxide 24 (22-30) mmol/L BUN 75 H (7-17) mg/dL Creatinine 3.45 H (0.52-1.04) mg/dL Glucose 119 H (74-99) mg/dL Calcium 9.0 (8.4-10.2) mg/dL AST 18 (14-36) U/L ALT 10 (4-34) U/L Alkaline Phosphatase 124 (38-126) U/L Total Protein 6.3 (6.3-8.2) g/dL Albumin 3.5 (3.5-5.0) g/dL Current Medications Generic Name Dose Route Start Last Admin Trade Name Amari PRN Reason Stop Dose Admin Acetaminophen 650 mg 03/22/24 22:23 03/23/24 06:49 Acetaminophen Tab 325 Mg Tab PO 650 mg Q6HR PRN Administration Mild Pain or Fever > 100.5 Sodium Chloride 1,000 mls @ 20 mls/hr 03/22/24 22:30 03/23/24 01:28 Saline 0.9% IV Not Given .Q24H [facility] Levothyroxine Sodium 100 mcg 03/23/24 07:00 03/23/24 06:49 Levothyroxine 100 Mcg Tab PO 100 mcg MOTUWEFRSA@0700 [facility] Administration Metoprolol Tartrate 25 mg 03/23/24 08:00 03/23/24 08:17 Metoprolol Tartrate 25 Mg Tab PO 25 mg BID@0800,2000 [facility] Administration Naloxone HCl 0.2 mg 03/22/24 22:23 Naloxone 0.4 Mg/Ml 1 Ml Vial IV Q2M PRN Opioid Reversal Nystatin 1 applic 03/22/24 22:15 03/23/24 00:08 Nystatin 100,000 Unit/Gm Powd 15 Gm TOPICAL 1 applic TID [facility] Administration Protocol Ondansetron HCl 4 mg 03/22/24 22:23 Ondansetron 4 Mg/2 Ml Vial IVP Q8HR PRN Nausea And Vomiting Rivaroxaban 15 mg 03/23/24 17:00 Rivaroxaban 15 Mg Tab PO W/SUPPER@1700 [facility] Protocol Intake and Output 03/22/24 03/23/24 03/23/24 22:59 06:59 14:59 Other: Voiding Method External Catheter Weight 97.25 kg 03/22/24 19:51 03/22/24 19:51
--- NOTE | 2024-03-23 12:32 | P.NPCON ---
History of Present Illness - Reason for Consult acute renal failure, chronic renal failure - History of Present Illness Reason for consultation: Acute kidney injury on chronic kidney disease History of present illness: Patient is 83-year-old female seen in renal consultation for acute kidney injury on chronic kidney disease. Patient has chronic kidney disease stage IV with recent creatinine in the range of 2.1-2.9 in January 2024. Creatinine this admission was 3.45. Patient was recently admitted with A-fib with RVR. Patient denies history of coronary artery disease. Patient does have longstanding h istory of diabetes. Also has systolic CHF ejection fraction of 30 to 35% with mild to moderate mitral regurgitation and moderate tricuspid regurgitation. Patient denies use of nonsteroidals. Denies family history of renal disease. Patient's recent UA showed no proteinuria and ultrasound showed no hydronephrosis. Patient states she was told by nephrology to be in bad [place] to go to the hospital due to abnormal labs. Patient has no active complaints. No chest pain or shortness of breath. Hemodynamically stable. Vital signs are stable. General: No acute distress. HEENT: Head exam is unremarkable. On room air. LUNGS: No audible rhonchi or wheezes. HEART: Rate and Rhythm are regular. ABDOMEN: Obese, nontender. EXTREMITITES: 1+ edema. Lower extremity wrapped. Past Medical History Past Medical History: Diabetes Mellitus, Hypertension, Thyroid Disorder Additional Past Medical History / Comment(s): back pain, questioning ulcer, repeated issues with stomach pain, prolonged episodes of dehydration, vomiting, hepatitis as a child History of Any Multi-Drug Resistant Organisms: None Reported Past Surgical History: Section, Hernia Repair, Hysterectomy, Joint Replacement, Orthopedic Surgery Additional Past Surgical History / Comment(s): Back injections-pain clinic, mult abd hernia repairs, right ankle surg with 4 rods, right knee replaced/revision lft knee replaced Past Anesthesia/Blood Transfusion Reactions: No Reported Reaction Additional Past Anesthesia/Blood Transfusion Reaction / Comment(s): no hx blood transfusion Past Psychological History: No Psychological Hx Reported Smoking Status: Never smoker Past Alcohol Use History: None Reported Past Drug Use History: None Reported - Past Family History Mother Family Medical History: No Reported History Father Additional Family Medical History / Comment(s): throat CA, mult MIs Sister(s) Family Medical History: Cancer Additional Family Medical History / Comment(s): 2 sisters have had CA-passed Medications and Allergies Home Medications Medication Instructions Recorded Confirmed Type HYDROcodone/APAP 5-325MG [[place] 1 tab PO Q4HR PRN 3 Days #15 tab 11/30/23 03/22/24 Rx 5-325] Acetaminophen Tab [Tylenol] 650 mg PO Q4H PRN 02/09/24 03/22/24 History Acetaminophen [Tylenol Arthritis] 650 mg PO TID PRN 02/09/24 03/22/24 History Calcium Carbonate [Tums] 1,000 mg PO Q2H PRN 02/09/24 03/22/24 History Cetirizine HCl [Zyrtec] 10 mg PO DAILY PRN 02/09/24 03/22/24 History DULoxetine HCL [Cymbalta] 20 mg PO DAILY@89902/09/24 03/22/24 History Docusate Sodium [Dok] 100 mg PO DAILY@89902/09/24 03/22/24 History Levothyroxine Sodium [Synthroid] 100 mcg PO MOTUWEFRSA@69902/09/24 03/22/24 History Levothyroxine Sodium [Synthroid] 150 mcg PO SUTH@69902/09/24 03/22/24 History Magnesium Hydroxide [Milk of 2,400 mg PO DAILY PRN 02/09/24 03/22/24 History Magnesia] Menthol [Biofreeze] 1 applic TOPICAL QID PRN 02/09/24 03/22/24 History Ondansetron [Zofran] 4 mg PO TID PRN 02/09/24 03/22/24 History Timolol 0.5% Ophth Soln [Timoptic 1 drop BOTH EYES BID@799,199902/09/24 03/22/24 History 0.5% Ophth Soln] guaiFENesin [guaiFENesin Oral 100 mg PO Q4H PRN 02/09/24 03/22/24 History Solution] traMADol HCL 50 mg PO Q8H PRN 02/09/24 03/22/24 History Bismuth Subsalicylate [Kaopectate] 262 mg PO Q4H PRN 03/22/24 03/22/24 History Empagliflozin [Jardiance] 10 mg PO AC-BRKFST@69903/22/24 03/22/24 History Furosemide [Lasix] 40 mg PO Q48H 03/22/24 03/22/24 History Ibuprofen [Motrin Ib] 400 mg PO Q6H PRN 03/22/24 03/22/24 History Losartan Potassium [Cozaar] 100 mg PO DAILY@89903/22/24 03/22/24 History Magnesium Oxide [Mag-Ox] 400 mg PO BID@799,199903/22/24 03/22/24 History Metoprolol Tartrate [Lopressor] 25 mg PO BID@799,199903/22/24 03/22/24 History Potassium Chloride ER [K-Dur 20] 20 meq PO Q48H 03/22/24 03/22/24 History Rivaroxaban [Xarelto] 15 mg PO W/SUPPER@17003/22/24 03/22/24 History Sodium Bicarbonate 325 mg PO DAILY@79903/22/24 03/22/24 History amLODIPine [Norvasc] 5 mg PO DAILY@89903/22/24 03/22/24 History Allergies Allergy/AdvReac Type Severity Reaction Status Date / Time clindamycin Allergy Anaphylaxis Verified 03/22/24 20:23 cranberry Allergy Swelling Verified 03/22/24 20:23 gabapentin [From Neurontin] Allergy Unknown Verified 03/22/24 20:23 grape Allergy Swelling Verified 03/22/24 20:23 pseudoephedrine Allergy Anaphylaxis Verified 03/22/24 20:23 [From Sudafed] Sulfa (Sulfonamide Allergy Unknown Verified 03/22/24 20:23 Antibiotics) glue on teristrips Allergy Unknown Uncoded 03/22/24 19:06 Physical Exam Vitals: Vital Signs Temp Pulse Pulse Resp BP BP Pulse Ox 03/23/24 09:00 82 14 100/40 97 03/23/24 08:00 72 16 107/58 97 03/23/24 02:07 97.6 F 84 17 97/61 96 03/23/24 01:06 75 03/23/24 00:40 98.1 F 75 17 89/61 98 03/23/24 00:16 117 H 16 100/55 97 03/22/24 22:12 117 H 16 101/58 98 03/22/24 19:31 110 H 18 101/65 98 03/22/24 19:02 97.7 F 18 93/65 96 Intake and Output 03/22/24 03/23/24 03/23/24 22:59 06:59 14:59 Other: Voiding Method External Catheter Weight 97.25 kg Results - Lab Results Most recent lab results Calcium 9.0 mg/dL (8.4-10.2) 03/22/24 19:51 Phosphorus 5.1 mg/dL (2.5-4.5) H 03/22/24 19:51 Magnesium 2.1 mg/dL (1.6-2.3) 03/23/24 10:08 03/22/24 19:51 03/22/24 19:51 Assessment and Plan Plan: Assessment: 1. Acute kidney injury secondary to ATN secondary to cardiorenal syndrome. Creatinine 3.45 on admission. UA fairly benign. Renal ultrasound from January 2024 showed no evidence of hydronephrosis. 2. Volume overload. 3. Acute on chronic systolic CHF ejection fraction of 30 to 35% with mild to moderate mitral regurgitation and moderate tricuspid regurgitation. 4. History of A-fib. 5. Diabetes mellitus. 6. Chronic kidney disease stage IV with creatinine in the range of 2.1-2.9 in January 2024. Etiology is nephrosclerosis and cardiorenal syndrome. Plan: Agree with IV Lasix. She will be transition to oral diuretics tomorrow. Discontinue Cozaar and Farxiga for now. Also stop amlodipine as blood pressure is on the lower side. Avoid nephrotoxins. Continue to monitor renal function and urine output. Thank you for the consultation. I will continue to follow the patient with you during her hospital stay.
[2024-03-23] MEDS ORDERED: MAGNESIUM HYDROXIDE 2,400 MG/30 ML CUP PO PRN (12:46)
--- NOTE | 2024-03-23 13:49 | HP ---
HISTORY AND PHYSICAL CHIEF COMPLAINT: Worsening renal function. HISTORY OF PRESENT ILLNESS: This is an 83-year-old woman with a past medical history of CHF, renal failure, was noted to have a creatinine elevated up to 3.45. The patient also has progressive leg swelling and weeping also. The patient was evaluated by Nephrology, sent to [facility]. Nephrology and Cardiology consultation in progress at this time. The baseline creatinine is around 2. The patient also had atrial fibrillation with rapid ventricular rate. The patient was given Lasix per Cardiology also. There is no history of any fever, rigors, or chills at this time. PAST MEDICAL HISTORY: Reviewed include diabetes mellitus, hypertension, chronic kidney disease, rest of the history and rest of the chart is also reviewed. HOME MEDICATIONS: Reviewed include Xarelto, dose and rest of medications reviewed. FAMILY HISTORY: History of throat cancer. SOCIAL HISTORY: No history of smoking or alcohol intake. PHYSICAL EXAMINATION: VITAL SIGNS: Pulse is 72, blood pressure n, respirations 16. HEENT: Conjunctivae normal. NECK: Obese. CARDIOVASCULAR: S1, S2. RESPIRATIONS: Few scattered rhonchi and crackles. ABDOMEN: Soft, obese. LEGS: Bilateral leg edema, weeping, some erythema, and cellulitis also present. SKIN: As mentioned. JOINTS: No active deforming arthropathy. NERVOUS SYSTEM: Diffusely weak. LABORATORY DATA: Hemoglobin 9.8, rest of the labs are noted. The baseline creatinine was also noted. ASSESSMENT: Chest x-ray reviewed personally. ASSESSMENT: 1. Acute on chronic renal failure with possibly prerenal acute tubular necrosis. 2. Congestive heart failure with chronic systolic dysfunction, ejection fraction 30% to 35%. 3. Paroxysmal atrial fibrillation. 4. Hypertension. 5. Diabetes mellitus, type 2. 6. Bilateral leg cellulitis possibly. 7. Hypothyroidism. 8. Gastroesophageal reflux disease. RECOMMENDATIONS AND DISCUSSION: This 83-year-old woman presented with multiple complex medical issues, we will monitor the patient closely. I would recommend to continue with diuretics, creatinine is 3.4. We will monitor the intake output and avoid nephrotoxic medications. Nephrology consultation. I would also recommend broad-spectrum IV antibiotics and obtain the cultures also. Eliquis has been initial low dose. Prognosis guarded. Further recommendations to follow. See orders for details. MMODL / IJN: [id number] / MTDD
[2024-03-23] MEDS ORDERED: RIVAROXABAN 15 MG TAB PO SCH (17:00)
[2024-03-23] MEDS: MAGNESIUM OXIDE 400 MG TAB PO SCH (23:33)
[2024-03-23] MEDS: HYDROcodone/APAP 5-325MG 1 EACH TAB PO PRN (23:33)
[2024-03-24] MEDS: TIMOLOL 0.5% OPHTH DROPS 5 ML BTL BOTH EYES SCH (02:22)
[2024-03-24 08:35] LABS: Basophils % (A) 1 %; Eosinophils # (A) 0.2 k/uL (0-0.7); Eosinophils % (A) 5 %; HCT 31.1 % (34.0-46.0); HGB 9.5 gm/dL (11.4-16.0); Lymphocytes # (A) 0.7 k/uL (1.0-4.8); Lymphocytes % (A) 16 %; MCH 31.4 pg (25.0-35.0); MCHC 30.5 g/dL (31.0-37.0); Macrocytosis Slight; Mean Platelet Volume 8.6; Monocytes # (A) 0.3 k/uL (0-1.0); Monocytes % (A) 7 %; Neutrophils # (A) 3.2 k/uL (1.3-7.7); Neutrophils % (A) 69 %; Platelet Count 293 k/uL (150-450); RBC 3.02 m/uL (3.80-5.40); RDW 12.6 % (11.5-15.5); WBC 4.6 k/uL (3.8-10.6)
[2024-03-24 08:47] LABS: African American GFR (CKD) 13 (>60 ml/min/1.73 sqM); Anion Gap 6 mmol/L; Blood Urea Nitrogen 72 mg/dL (7-17); Calcium 9.3 mg/dL (8.4-10.2); Carbon Dioxide 28 mmol/L (22-30); Chloride 104 mmol/L (98-107); Glucose 88 mg/dL (74-99); Non-African American GFR(CKD) 11 (>60 ml/min/1.73 sqM); Potassium 4.4 mmol/L (3.5-5.1); Sodium 138 mmol/L (137-145)
[2024-03-24] MEDS: LEVOTHYROXINE 75 MCG TAB PO SCH (09:13)
[2024-03-24] MEDS: DOCUSATE 100 MG CAP PO SCH (09:13)
[2024-03-24] MEDS: FUROSEMIDE 40 MG TAB PO SCH (09:13)
--- NOTE | 2024-03-24 13:07 | P.PN ---
Subjective Progress Note Date: 03/24/24 Reason for Consult (text): A-fib with RVR, BLAKE, EF 30 to 35% History of present illness: This is an 83-year-old female patient of Dr. Zoe Marshall with past medical history of diabetes mellitus type 2, hypertension, hypothyroidism, gastroesophageal reflux disease, paroxysmal atrial fibrillation, newly diagnosed cardiomyopathy. Patient gives history that she had recent blood work done as an outpatient and her [employer] studies professor called her and told her to come into the hospital as her kidney function had worsened. Patient is not aware of the medications that she is currently taking as she is at assisted living and they do all of her medications. She states she has felt good and no symptoms. She does have some lower extremity edema bilaterally and she noted that there is been some weeping the last couple of days. Patient had a recent hospitalization in January at which time she had new onset of paroxysmal atrial fibrillation and was started on Eliquis at that time. Her home medication list is now stating that she is on Xarelto but patient does not recall any physician changing her medications. Her last follow-up in the office was with Dr. Zoe Marshall on 02/19/2024. She denies chest pain. No palpitations. Blood pressure 100/40, heart rate 82, pulse ox 97% on room air. Patient is seen today in the emergency center waiting for bed on the cardiac stepdown unit. EKG none, telemetry atrial fibrillation 77 bpm, patient presented with heart rate 130s Renal ultrasound: Left renal cyst. Laboratory studies: WBC 6, hemoglobin 9.8, platelet count 287. Sodium 134, potassium 4.7, BUN 75 creatinine 3.45, glucose 119. Phosphorus 5.1, magnesium 2.2. Troponin negative x 1. Urinalysis leukoesterase moderate WBC 7. Home cardiac medications: Amlodipine 5 mg daily, Jardiance 10 mg daily, Lasix 40 mg every 48 hours, losartan 100 mg daily, magnesium oxide 400 mg twice daily, Lopressor 25 mg twice daily, K. Dur 20 mill equivalents every 48 hours, Xarelto 50 mg with supper. Patient also on levothyroxine. Echocardiogram performed on 02/09/2024 reveals EF of 30 to 35%. RVSP 39, severe biatrial enlargement. Mild to moderate MR, mild aortic regurgitation, moderate tricuspid regurgitation. 03/24 Telemetry is atrial fibrillation and controlled rate. Blood pressure 97/62, heart rate is in the 80s, pulse ox 98% on room air, afebrile. Repeat blood work reveals hemoglobin of 9.5. BUN 72, creatinine 3.49. Patient states she feels well today. Edema in LE is improved. She is keeping legs elevated. Yesterday we ordered 2 doses of IV Lasix 40 mg and transition to oral Lasix 40 mg daily starting this morning. Chest x-ray reveals cardiomegaly with no evidence of focal pneumonia or overt failure. EKG atrial fibrillation with ventricular rate of 116 bpm. Bladder scan was 53 mL. Physical examination: Gen: This is an 83-year-old female in no acute distress. VS: reviewed HEENT: Head is atraumatic, normocephalic. Pupils equal, round. Sclerae is anic teric. NECK: Supple. No JVD. LUNGS: Clear to auscultation. No wheezes or rhonchi. No intercostal retractions. HEART: Irregular rate and rhythm. No murmur. ABDOMEN: Soft No tenderness. EXTREMITIES: 2+ bilateral lower extremity edema with chronic skin changes. NEUROLOGICAL: Patient is awake, alert and oriented x3. Assessment: Paroxysmal atrial fibrillation with RVR, currently rate controlled Acute kidney injury Cardiomyopathy with a EF of 30 to 35%, unknown type Mild acute on chronic systolic heart failure Diabetes mellitus type 2 Hypertension Hypothyroidism Gastroesophageal reflux disease Recent weight loss Plan: Continue patient on the following cardiac medications: Eliquis 2.5 mg twice daily (adjusted for age and renal function), Lopressor 25 mg twice daily Amlodipine, Jardiance, losartan are on hold Patient received 1 dose of oral Lasix this morning which will be transition to Bumex 1 mg this afternoon and then 1 mg daily Monitor ROSE, daily weights, electrolytes and renal function No need to repeat echocardiogram as this was done in January Further recommendations to follow based upon clinical course Nurse practitioner note has been reviewed, I agree with documented findings and plan of care. Patient was seen and examined. Objective - Vital Signs Vital signs: Vital Signs Temp 97.2 F L 03/24/24 04:00 Pulse 84 03/24/24 04:12 Resp 18 03/24/24 04:00 BP 97/62 03/24/24 04:00 Pulse Ox 98 03/24/24 04:00 FiO2 Intake & Output 07/0303/24/24 03/24/24 18:59 06:59 18:59 Intake Total 240 Output Total 550 950 500 Balance -310 -950 -500 Weight 97.25 kg 92.5 kg Intake: Oral 240 Output: Urine 550 950 500 Other: # Voids 1 1 - Labs CBC & Chem 7: 03/24/24 08:06 03/24/24 08:06 Labs: Abnormal Lab Results - Last 24 Hours (Table) 03/24/24 Range/Units 08:06 RBC 3.02 L (3.80-5.40) m/uL Hgb 9.5 L (11.4-16.0) gm/dL Hct 31.1 L (34.0-46.0) % MCV 103.0 H (80.0-100.0) fL MCHC 30.5 L (31.0-37.0) g/dL Lymphocytes # 0.7 L (1.0-4.8) k/uL
--- NOTE | 2024-03-24 13:34 | P.PN ---
Subjective Progress Note Date: 03/24/24 Patient seen in follow-up for acute kidney injury on chronic kidney disease stage IV. Feeling well and edema is improving. Vital signs are stable. General: No acute distress. HEENT: Head exam is unremarkable. On room air. LUNGS: No audible rhonchi or wheezes. HEART: Rate and Rhythm are regular. ABDOMEN: Obese, nontender. EXTREMITITES: 1+ edema. Lower extremity wrapped. Objective - Vital Signs Vital signs: Vital Signs Temp 97.9 F 03/24/24 08:00 Pulse 73 03/24/24 08:00 Resp 18 03/24/24 08:00 BP 88/55 03/24/24 08:00 Pulse Ox 98 03/24/24 08:00 FiO2 Intake & Output 03/23/24 03/24/24 03/24/24 18:59 06:59 18:59 Intake Total 240 Output Total 550 950 500 Balance -310 -950 -500 Weight 97.25 kg 92.5 kg Intake: Oral 240 Output: Urine 550 950 500 Other: # Voids 1 1 - Labs CBC & Chem 7: 03/24/24 08:06 03/24/24 08:06 Labs: Abnormal Lab Results - Last 24 Hours (Table) 03/24/24 03/24/24 Range/Units 08:06 08:06 RBC 3.02 L (3.80-5.40) m/uL Hgb 9.5 L (11.4-16.0) gm/dL Hct 31.1 L (34.0-46.0) % MCV 103.0 H (80.0-100.0) fL MCHC 30.5 L (31.0-37.0) g/dL Lymphocytes # 0.7 L (1.0-4.8) k/uL BUN 72 H (7-17) mg/dL Creatinine 3.49 H (0.52-1.04) mg/dL Assessment and Plan Assessment: 1. Acute kidney injury secondary to ATN secondary to cardiorenal syndrome. Creatinine stable at 3.4 today. UA fairly benign. Renal ultrasound from January 2024 showed no evidence of hydronephrosis. 2. Volume overload. 3. Acute on chronic systolic CHF ejection fraction of 30 to 35% with mild to moderate mitral regurgitation and moderate tricuspid regurgitation. 4. History of A-fib. 5. Diabetes mellitus. 6. Chronic kidney disease stage IV with creatinine in the range of 2.1-2.9 in January 2024. Etiology is nephrosclerosis and cardiorenal syndrome. Plan: Continue with Lasix as BP tolerates. Bumex PO 1mg per cardiology. Hold Cozaar and Farxiga for now. Holding amlodipine as blood pressure is on the lower side. Avoid nephrotoxins. Continue to monitor renal function and urine output. Fluid restriction, daily BMP.
[2024-03-24] MEDS: BUMETANIDE 1 MG TAB PO SCH (16:54)
[2024-03-24] MEDS: METOPROLOL TARTRATE 12.5 MG TAB PO SCH (22:04)
--- NOTE | 2024-03-25 00:04 | PN ---
PROGRESS NOTE DATE OF SERVICE: 03/24/2024 SUBJECTIVE: This 83-year-old woman who was admitted with acute on chronic renal failure, also had CHF. The renal function appears to be worsened in the chest x-ray. Multiple consultants are following the patient closely. Chest x-ray showed cardiomegaly. PAST MEDICAL HISTORY: Fourteen-point review is negative except as mentioned earlier. CURRENT MEDICATIONS: Reviewed include cefazolin, doses and rest of medications noted. PHYSICAL EXAMINATION: VITAL SIGNS: Pulse is 96, blood pressure 97/62, and respirations 18. HEENT: Conjunctivae normal. CARDIOVASCULAR: S1 and S2. RESPIRATIONS: A few scattered rhonchi. ABDOMEN: Soft. LEGS: Minimal swelling. Cellulitis improving. LABORATORY DATA: WBC 9.5. Creatinine is 3.49. ASSESSMENT: 1. Acute on chronic renal failure with possible prerenal acute tubular necrosis. 2. Congestive heart failure with chronic systolic dysfunction, ejection fraction 30% to 35%. 3. Paroxysmal atrial fibrillation. 4. Cellulitis of the legs. 5. Hypertension. 6. Diabetes mellitus, type 2. 7. Hypothyroidism. 8. Gastroesophageal reflux disease. RECOMMENDATIONS: Recommend to continue current medications, symptomatic treatment. Otherwise, continue the antibiotics, PT/OT evaluation. The patient's blood pressure is borderline. We will continue to monitor closely. Follow with Nephrology and Cardiology. We will reduce the dose of Lopressor and further recommendations to follow. MMCLAYL / ROYALN: [id number] /
[2024-03-25] MEDS: BUMETANIDE 1 MG TAB PO SCH (08:28)
--- NOTE | 2024-03-25 10:25 | P.PN ---
Subjective Progress Note Date: 03/25/24 Reason for Consult (text): A-fib with RVR, BLAKE, EF 30 to 35% History of present illness: This is an 83-year-old female patient of Dr. Zoe Marshall with past medical history of diabetes mellitus type 2, hypertension, hypothyroidism, gastroesophageal reflux disease, paroxysmal atrial fibrillation, newly diagnosed cardiomyopathy. Patient gives history that she had recent blood work done as an outpatient and her massotherapist called her and told her to come into the hospital as her kidney function had worsened. Patient is not aware of the medications that she is currently taking as she is at assisted living and they do all of her medications. She states she has felt good and no symptoms. She does have some lower extremity edema bilaterally and she noted that there is been some weeping the last couple of days. Patient had a recent hospitalization in January at which time she had new onset of paroxysmal atrial fibrillation and was started on Eliquis at that time. Her home medication list is now stating that she is on Xarelto but patient does not recall any physician changing her medications. Her last follow-up in the office was with Dr. Zoe Marshall on 02/19/2024. She denies chest pain. No palpitations. Blood pressure 100/40, heart rate 82, pulse ox 97% on room air. Patient is seen today in the emergency center waiting for bed on the cardiac stepdown unit. EKG none, telemetry atrial fibrillation 77 bpm, patient presented with heart rate 130s Renal ultrasound: Left renal cyst. Laboratory studies: WBC 6, hemoglobin 9.8, platelet count 287. Sodium 134, potassium 4.7, BUN 75 creatinine 3.45, glucose 119. Phosphorus 5.1, magnesium 2.2. Troponin negative x 1. Urinalysis leukoesterase moderate WBC 7. Home cardiac medications: Amlodipine 5 mg daily, Jardiance 10 mg daily, Lasix 40 mg every 48 hours, losartan 100 mg daily, magnesium oxide 400 mg twice daily, Lopressor 25 mg twice daily, K. Dur 20 mill equivalents every 48 hours, Xarelto 50 mg with supper. Patient also on levothyroxine. Echocardiogram performed on 02/09/2024 reveals EF of 30 to 35%. RVSP 39, severe biatrial enlargement. Mild to moderate MR, mild aortic regurgitation, moderate tricuspid regurgitation. 03/24 Telemetry is atrial fibrillation and controlled rate. Blood pressure 97/62, heart rate is in the 80s, pulse ox 98% on room air, afebrile. Repeat blood work reveals hemoglobin of 9.5. BUN 72, creatinine 3.49. Patient states she feels well today. Edema in LE is improved. She is keeping legs elevated. Yesterday we ordered 2 doses of IV Lasix 40 mg and transition to oral Lasix 40 mg daily starting this morning. Chest x-ray reveals cardiomegaly with no evidence of focal pneumonia or overt failure. EKG atrial fibrillation with ventricular rate of 116 bpm. Bladder scan was 53 mL. 03/25 Patient remains in atrial fibrillation, heart rate 90, pulse ox 99% on room air, blood pressure 85/54. Patient is slightly more edema today. Patient was started on oral Bumex yesterday. Amlodipine, Jardiance and losartan remain on hold. Repeat blood work reveals hemoglobin 9.5, BUN 72 creatinine 3.49. Physical examination: Gen: This is an 83-year-old female in no acute distress. VS: reviewed HEENT: Head is atraumatic, normocephalic. Pupils equal, round. Sclerae is anicteric. NECK: Supple. No JVD. LUNGS: Clear to auscultation. No wheezes or rhonchi. No intercostal retractions. HEART: Irregular rate and rhythm. No murmur. ABDOMEN: Soft No tenderness. EXTREMITIES: 2+ bilateral lower extremity edema with chronic skin changes. NEUROLOGICAL: Patient is awake, alert and oriented x3. Assessment: Paroxysmal atrial fibrillation with RVR, currently rate controlled Acute kidney injury Cardiomyopathy with a EF of 30 to 35%, unknown type Mild acute on chronic systolic heart failure Diabetes mellitus type 2 Hypertension Hypothyroidism Gastroesophageal reflux disease Recent weight loss Plan: Continue patient on the following cardiac medications: Eliquis 2.5 mg twice daily (adjusted for age and renal function), Lopressor 25 mg twice daily Amlodipine, Jardiance, losartan are on hold Continue patient on Bumex 1 mg daily Start patient on amiodarone 200 mg 3 times daily for 1 week, 200 mg twice daily for 1 week and then 200 mg daily Patient to follow-up in the office with Dr. Zoe Marshall in 1 to 2 weeks. Repeat CMP and TSH as an outpatient within the week. Results to Drs. Espinoza and Zoe Marshall. Nurse practitioner note has been reviewed, I agree with documented findings and plan of care. Patient was seen and examined. Objective - Vital Signs Vital signs: Vital Signs Temp 98.2 F 03/25/24 08:00 Pulse 90 03/25/24 08:00 Resp 16 03/25/24 08:00 BP 85/54 03/25/24 08:00 Pulse Ox 99 03/25/24 08:00 FiO2 Intake & Output 03/24/24 03/25/24 03/25/24 18:59 06:59 18:59 Intake Total 480 360 Output Total 1200 1400 200 Balance -720 -1400 160 Weight 91.4 kg Intake: Oral 480 360 Output: Urine 1200 1400 200 Other: # Voids 1 1 - Labs CBC & Chem 7: 03/24/24 08:06 03/24/24 08:06
[2024-03-25] MEDS: AMIODARONE 200 MG TAB PO SCH ×2 (11:59→16:08)
--- NOTE | 2024-03-25 14:04 | P.PN ---
Subjective Progress Note Date: 03/25/24 Patient seen in follow-up for acute kidney injury on chronic kidney disease stage IV. Feeling well and edema is improving. Vital signs are stable. General: No acute distress. HEENT: Head exam is unremarkable. On room air. LUNGS: No audible rhonchi or wheezes. HEART: Rate and Rhythm are regular. ABDOMEN: Obese, nontender. EXTREMITITES: 1+ edema. Lower extremity wrapped. Objective - Vital Signs Vital signs: Vital Signs Temp 98.1 F 03/25/24 12:00 Pulse 90 03/25/24 12:00 Resp 16 03/25/24 12:00 BP 84/50 03/25/24 12:00 Pulse Ox 95 03/25/24 12:00 FiO2 Intake & Output 03/24/24 03/25/24 03/25/24 18:59 06:59 18:59 Intake Total 480 360 Output Total 1200 1400 500 Balance -720 -1400 -140 Weight 91.4 kg Intake: Oral 480 360 Output: Urine 1200 1400 500 Other: Voiding Method External Catheter # Voids 1 1 - Labs CBC & Chem 7: 03/24/24 08:06 03/24/24 08:06 Assessment and Plan Assessment: 1. Acute kidney injury secondary to ATN secondary to cardiorenal syndrome. Creatinine stable at 3.4 today. UA fairly benign. Renal ultrasound from January 2024 showed no evidence of hydronephrosis. 2. Volume overload. 3. Acute on chronic systolic CHF ejection fraction of 30 to 35% with mild to moderate mitral regurgitation and moderate tricuspid regurgitation. 4. History of A-fib. 5. Diabetes mellitus. 6. Chronic kidney disease stage IV with creatinine in the range of 2.1-2.9 in January 2024. Etiology is nephrosclerosis and cardiorenal syndrome. Plan: Continue with Lasix as BP tolerates. Bumex PO 1mg per cardiology. Hold Cozaar and Farxiga for now. Holding amlodipine as blood pressure is on the lower side. Avoid nephrotoxins. Continue to monitor renal function and urine output. Fluid restriction, daily BMP.
[2024-03-25] MEDS: ZINC OXIDE PASTE (Z-GUARD) 1 APPLIC TOPICAL PRN (16:08)
[2024-03-26 08:32] LABS: African American GFR (CKD) 13 (>60 ml/min/1.73 sqM); Anion Gap 7 mmol/L; Blood Urea Nitrogen 77 mg/dL (7-17); Calcium 9.2 mg/dL (8.4-10.2); Carbon Dioxide 29 mmol/L (22-30); Chloride 102 mmol/L (98-107); Glucose 94 mg/dL (74-99); Non-African American GFR(CKD) 11 (>60 ml/min/1.73 sqM); Potassium 4.2 mmol/L (3.5-5.1); Sodium 138 mmol/L (137-145)
--- NOTE | 2024-03-26 12:09 | P.PN ---
Subjective patient is seen for follow-up for acute kidney injury and chronic kidney disease stage IV. currently maintained on IV fluids at 50 mL an hour and Bumex noted as well. No significant complaints today. serum creatinine stable at about 3.5 mg/dL. Objective - Vital Signs Vital signs: Vital Signs Temp 99.1 F 03/26/24 11:17 Pulse 83 03/26/24 11:17 Resp 16 03/26/24 11:17 BP 77/60 03/26/24 11:17 Pulse Ox 92 L 03/26/24 11:17 FiO2 Intake & Output 03/25/24 03/26/24 03/26/24 18:59 06:59 18:59 Intake Total 470 360 Output Total 500 600 550 Balance -30 -600 -190 Weight 90 kg Intake: Oral 470 360 Output: Urine 500 600 550 Other: Voiding Method Toilet External Catheter Toilet # Voids 1 5 # Bowel Movements 1 - Exam patient is awake, comfortable, no acute distress. Examination of the heart S1 and S2 Examination of the lungs bilateral breath sounds are heard Abdomen is obese Examination of lower extremity shows edema 1+ bilaterally SECURITY TESTER exam grossly intact - Labs CBC & Chem 7: 03/24/24 08:06 03/26/24 07:32 Labs: Abnormal Lab Results - Last 24 Hours (Table) 03/26/24 Range/Units 07:32 BUN 77 H (7-17) mg/dL Creatinine 3.54 H (0.52-1.04) mg/dL Assessment and Plan Assessment: 1. Acute kidney injury secondary to ATN secondary to cardiorenal syndrome. Creatinine stable at 3.5 today. UA fairly benign. Renal ultrasound from January 2024 showed no evidence of hydronephrosis. 2. Volume overload. 3. Acute on chronic systolic CHF ejection fraction of 30 to 35% with mild to moderate mitral regurgitation and moderate tricuspid regurgitation. 4. History of A-fib. 5. Diabetes mellitus. 6. Chronic kidney disease stage IV with creatinine in the range of 2.1-2.9 in January 2024. Etiology is nephrosclerosis and cardiorenal syndrome. Plan: DC IV fluids. Continue to hold Cozaar and for C cup. Repeat labs in a.m. May continue with Bumex
[2024-03-26] MEDS: SODIUM CHLORIDE 0.9% 1,000 ML IV SCH (12:46)
--- NOTE | 2024-03-26 14:09 | P.PN ---
Subjective Progress Note Date: 03/26/24 History of present illness: This is an 83-year-old female patient of Dr. Zoe Marshall with past medical history of diabetes mellitus type 2, hypertension, hypothyroidism, gastroesophageal reflux disease, paroxysmal atrial fibrillation, newly diagnosed cardiomyopathy. Patient gives history that she had recent blood work done as an outpatient and her midlevel provider called her and told her to come into the hospital as her kidney function had worsened. Patient is not aware of the medications that she is currently taking as she is at assisted living and they do all of her medications . She states she has felt good and no symptoms. She does have some lower extremity edema bilaterally and she noted that there is been some weeping the last couple of days. Patient had a recent hospitalization in January at which time she had new onset of paroxysmal atrial fibrillation and was started on Eliquis at that time. Her home medication list is now stating that she is on Xarelto but patient does not recall any physician changing her medications. Her last follow-up in the office was with Dr. Zoe Marshall on 02/19/2024. She denies chest pain. No palpitations. Blood pressure 100/40, heart rate 82, pulse ox 97% on room air. Patient is seen today in the emergency center waiting for bed on the cardiac stepdown unit. EKG none, telemetry atrial fibrillation 77 bpm, patient presented with heart rate 130s Renal ultrasound: Left renal cyst. Laboratory studies: WBC 6, hemoglobin 9.8, platelet count 287. Sodium 134, potassium 4.7, BUN 75 creatinine 3.45, glucose 119. Phosphorus 5.1, magnesium 2.2. Troponin negative x 1. Urinalysis leukoesterase moderate WBC 7. Home cardiac medications: Amlodipine 5 mg daily, Jardiance 10 mg daily, Lasix 40 mg every 48 hours, losartan 100 mg daily, magnesium oxide 400 mg twice daily, Lopressor 25 mg twice daily, K. Dur 20 mill equivalents every 48 hours, Xarelto 50 mg with supper. Patient also on levothyroxine. Echocardiogram performed on 02/09/2024 reveals EF of 30 to 35%. RVSP 39, severe biatrial enlargement. Mild to moderate MR, mild aortic regurgitation, moderate tricuspid regurgitation. 03/24 Telemetry is atrial fibrillation and controlled rate. Blood pressure 97/62, heart rate is in the 80s, pulse ox 98% on room air, afebrile. Repeat blood work reveals hemoglobin of 9.5. BUN 72, creatinine 3.49. Patient states she feels well today. Edema in LE is improved. She is keeping legs elevated. Yesterday we ordered 2 doses of IV Lasix 40 mg and transition to oral Lasix 40 mg daily starting this morning. Chest x-ray reveals cardiomegaly with no evidence of focal pneumonia or overt failure. EKG atrial fibrillation with ventricular rate of 116 bpm. Bladder scan was 53 mL. 03/25 Patient remains in atrial fibrillation, heart rate 90, pulse ox 99% on room air, blood pressure 85/54. Patient is slightly more edema today. Patient was started on oral Bumex yesterday. Amlodipine, Jardiance and losartan remain on hold. Repeat blood work reveals hemoglobin 9.5, BUN 72 creatinine 3.49. 03/26/2024 Patient remains in rate controlled atrial fibrillation. Patient's blood pressure is however low with systolic blood pressure around 80s, diastolic around 50s. Patient's renal function is slightly trending up. We have held her Jardiance and losartan and continue to give her Bumex. Because of her uptrending creatinine, will hold on further diuretics and will start a fluid challenge. Physical examination: Gen: This is an 83-year-old female in no acute distress. VS: reviewed HEENT: Head is atraumatic, normocephalic. Pupils equal, round. Sclerae is anicteric. NECK: Supple. No JVD. LUNGS: Clear to auscultation. No wheezes or rhonchi. No intercostal retractions. HEART: Irregular rate and rhythm. No murmur. ABDOMEN: Soft No tenderness. EXTREMITIES: 2+ bilateral lower extremity edema with chronic skin changes. NEUROLOGICAL: Patient is awake, alert and oriented x3. Assessment: Paroxysmal atrial fibrillation with RVR, currently rate controlled Acute kidney injury Cardiomyopathy with a EF of 30 to 35%, unknown type Mild acute on chronic systolic heart failure Diabetes mellitus type 2 Hypertension Hypothyroidism Gastroesophageal reflux disease Recent weight loss Plan: When patient presented she had lower extremity edema with concerns of cellulitis. She responded well to diuretic therapy but her kidney function has trended up. She also has low blood pressure but is asymptomatic from it and sitting position. She has cardiomyopathy with EF of 30%. Because of her uptrending creatinine, I will hold her diuretics, and give a fluid challenge test. Discussed with nephrology and they agrees Because of low blood pressure hold amiodarone and metoprolol this morning Continue Eliquis 2.5 mg twice daily Amlodipine, Jardiance, losartan are on hold On discharge, discharged her on amiodarone taper with amiodarone 200 mg twice daily for 1 week and then 200 mg daily Patient to follow-up in the office with Dr. Zoe Marshall in 1 to 2 weeks. Repeat CMP and TSH as an outpatient within the week. Results to Drs. Espinoza and Zoe Marshall. Objective - Vital Signs Vital signs: Vital Signs Temp 99.1 F 03/26/24 11:17 Pulse 83 03/26/24 13:42 Resp 16 03/26/24 13:42 BP 77/60 03/26/24 11:17 Pulse Ox 92 L 03/26/24 11:17 FiO2 Intake & Output 03/25/24 03/26/24 03/26/24 18:59 06:59 18:59 Intake Total 470 810 Output Total 500 600 750 Balance -30 -600 60 Weight 90 kg Intake: Intake, IV Titration 50 Amount ceFAZolin 1 gm In Sodium 50 Chloride 0.9% 50 ml @ 100 mls/hr IVPB Q12HR [facility] Rx #:[id number] Oral 470 760 Output: Urine 500 600 750 Other: Voiding Method Toilet External Catheter Toilet External Catheter # Voids 1 5 # Bowel Movements 1 - Labs CBC & Chem 7: 03/24/24 08:06 03/26/24 07:32 Labs: Abnormal Lab Results - Last 24 Hours (Table) 03/26/24 Range/Units 07:32 BUN 77 H (7-17) mg/dL Creatinine 3.54 H (0.52-1.04) mg/dL
--- NOTE | 2024-03-27 07:35 | P.PN ---
Subjective Progress Note Date: 03/25/24 83-year-old female patient past medical history of diabetes mellitus type 2, hypertension, hypothyroidism, gastroesophageal reflux disease, paroxysmal atrial fibrillation, newly diagnosed cardiomyopathy. Patient gives history that she had recent blood work done as an outpatient and her cosmetic sales advisor called her and told her to come into the hospital as her kidney function had worsened. She states she has felt good and no symptoms. She does have some lower extremity edema bilaterally and she noted that there is been some weeping the last couple of days. Patient had a recent hospitalization in January at which time she had new onset of paroxysmal atrial fibrillation and was started on Eliquis at that time. Her home medication list is now stating that she is on Xarelto but patient does not recall any physician changing her medications. She denies chest pain. No palpitations. Blood pressure 100/40, heart rate 82, pulse ox 97% on room air. Patient is admitted to the hospital with acute on chronic renal failure and CHF Objective - Vital Signs Vital signs: Vital Signs Temp 98.1 F 03/25/24 12:00 Pulse 90 03/25/24 12:00 Resp 16 03/25/24 12:00 BP 84/50 03/25/24 12:00 Pulse Ox 95 03/25/24 12:00 FiO2 Intake & Output 03/24/24 03/25/24 03/25/24 18:59 06:59 18:59 Intake Total 480 360 Output Total 1200 1400 500 Balance -720 -1400 -140 Weight 91.4 kg Intake: Oral 480 360 Output: Urine 1200 1400 500 Other: Voiding Method External Catheter # Voids 1 1 - Exam Gen: This is an 83-year-old female in no acute distress. VS: reviewed HEENT: Head is atraumatic, normocephalic. Pupils equal, round. Sclerae is anicteric. NECK: Supple. No JVD. LUNGS: Clear to auscultation. No wheezes or rhonchi. No intercostal retra ctions. HEART: Irregular rate and rhythm. No murmur. ABDOMEN: Soft No tenderness. EXTREMITIES: 2+ bilateral lower extremity edema with chronic skin changes. NEUROLOGICAL: Patient is awake, alert and oriented x3. - Labs CBC & Chem 7: 03/24/24 08:06 03/26/24 07:32 Assessment and Plan Assessment: 1. Mild acute on chronic systolic CHF/cardiomyopathy -- Echocardiogram is completed which reveals an LVEF of 30 to 35% -- Cardiology recommending to transition from Lasix to Bumex 1 mg daily -- Plan to monitor strict ROSE's, daily weights, low-salt and fluid restricted diet 2. Acute on chronic renal injury stage IV; likely secondary to ATN secondary to cardiorenal syndrome -Creatinine at 3.4 this morning; nephrology on board and recommending to continue to hold Cozaar and Farxiga -We will monitor strict ROSE's, daily weights, renal function electrolytes; avoid nephrotoxins and hypotension 3. Hypertension; Lopressor 25 mg twice daily and amlodipine; amlodipine has been placed on hold due to softer blood pressures 4. Hypothyroidism; levothyroxine 100 mg MCG alternating with 150 mcg every and Thursday 5. Diabetes mellitus type 2; Farxiga is placed on hold; monitor Accu-Cheks ACHS with insulin sliding scale 6. Paroxysmal atrial fibrillation; patient remains rate controlled on Lopressor 25 mg twice daily; anticoagulated with Eliquis 2.5 mg twice daily DVT prophylaxis; SCDs/systemic anticoagulation CODE STATUS; DNR
--- NOTE | 2024-03-27 07:38 | P.PN ---
Subjective Progress Note Date: 03/26/24 83-year-old female patient past medical history of diabetes mellitus type 2, hypertension, hypothyroidism, gastroesophageal reflux disease, paroxysmal atrial fibrillation, newly diagnosed cardiomyopathy. Patient gives history that she had recent blood work done as an outpatient and her inspector outside production called her and told her to come into the hospital as her kidney function had worsened. She states she has felt good and no symptoms. She does have some lower extremity edema bilaterally and she noted that there is been some weeping the last couple of days. Patient had a recent hospitalization in January at which time she had new onset of paroxysmal atrial fibrillation and was started on Eliquis at that time. Her home medication list is now stating that she is on Xarelto but patient does not recall any physician changing her medications. She denies chest pain. No palpitations. Blood pressure 100/40, heart rate 82, pulse ox 97% on room air. Patient is admitted to the hospital with acute on chronic renal failure and CHF 03/26/2024; late entry; documentation inadvertently missed Patient is seen and evaluated in room at bedside; remains asymptomatic Vital signs are reviewed and remained stable heart rate 90, pulse ox 99% on room air, blood pressure 85/54. Repeat blood work reveals hemoglobin 9.5, BUN 72 creatinine 3.49. Patient is slightly more edema today. Patient was started on oral Bumex yesterday. Amlodipine, Jardiance and losartan remain on hold. Patient remains in atrial fibrillation; cardiology recommending to start on amiodarone 200 mg 3 times daily for 1 week followed by 200 mg twice daily for 1 week and then maintenance dose of 200 mg daily Objective - Vital Signs Vital signs: Vital Signs Temp 98 F 03/27/24 00:00 Pulse 126 H 03/27/24 04:00 Resp 16 03/27/24 04:00 BP 98/64 03/27/24 04:00 Pulse Ox 97 03/27/24 04:00 FiO2 Intake & Output 03/26/24 03/27/24 03/27/24 18:59 06:59 18:59 Intake Total 1170 Output Total 750 Balance 420 Weight 90.6 kg Intake: Intake, IV Titration 50 Amount ceFAZolin 1 gm In Sodium 50 Chloride 0.9% 50 ml @ 100 mls/hr IVPB Q12HR [facility] Rx #:[id number] Oral 1120 Output: Urine 750 Other: Voiding Method Toilet Toilet External Catheter External Catheter # Voids 5 1 - Exam Gen: This is an 83-year-old female in no acute distress. VS: reviewed HEENT: Head is atraumatic, normocephalic. Pupils equal, round. Sclerae is anicteric. NECK: Supple. No JVD. LUNGS: Clear to auscultation. No wheezes or rhonchi. No intercostal retractions. HEART: Irregular rate and rhythm. No murmur. ABDOMEN: Soft No tenderness. EXTREMITIES: 2+ bilateral lower extremity edema with chronic skin changes. NEUROLOGICAL: Patient is awake, alert and oriented x3. - Labs CBC & Chem 7: 03/24/24 08:06 03/26/24 07:32 Labs: Abnormal Lab Results - Last 24 Hours (Table) 03/26/24 Range/Units 07:32 BUN 77 H (7-17) mg/dL Creatinine 3.54 H (0.52-1.04) mg/dL Assessment and Plan Assessment: 1. Mild acute on chronic systolic CHF/cardiomyopathy -- Echocardiogram is completed which reveals an LVEF of 30 to 35% -- Cardiology recommending to transition from Lasix to Bumex 1 mg daily -- Plan to monitor strict ROSE's, daily weights, low-salt and fluid restricted diet 2. Acute on chronic renal injury stage IV; likely secondary to ATN secondary to cardiorenal syndrome -Creatinine at 3.4 this morning; nephrology on board and recommending to continue to hold Cozaar and Farxiga -We will monitor strict ROSE's, daily weights, renal function electrolytes; avoid nephrotoxins and hypotension 3. Hypertension; Lopressor 25 mg twice daily and amlodipine; amlodipine has been placed on hold due to softer blood pressures 4. Hypothyroidism; levothyroxine 100 mg MCG alternating with 150 mcg every and Thursday 5. Diabetes mellitus type 2; Farxiga is placed on hold; monitor Accu-Cheks ACHS with insulin sliding scale 6. Paroxysmal atrial fibrillation; patient remains rate controlled on Lopressor 25 mg twice daily; anticoagulated with Eliquis 2.5 mg twice daily DVT prophylaxis; SCDs/systemic anticoagulation CODE STATUS; DNR
--- NOTE | 2024-03-27 07:41 | P.PN ---
Subjective Progress Note Date: 03/27/24 83-year-old female patient past medical history of diabetes mellitus type 2, hypertension, hypothyroidism, gastroesophageal reflux disease, paroxysmal atrial fibrillation, newly diagnosed cardiomyopathy. Patient gives history that she had recent blood work done as an outpatient and her auditor tax called her and told her to come into the hospital as her kidney function had worsened. She states she has felt good and no symptoms. She does have some lower extremity edema bilaterally and she noted that there is been some weeping the last couple of days. Patient had a recent hospitalization in January at which time she had new onset of paroxysmal atrial fibrillation and was started on Eliquis at that time. Her home medication list is now stating that she is on Xarelto but patient does not recall any physician changing her medications. She denies chest pain. No palpitations. Blood pressure 100/40, heart rate 82, pulse ox 97% on room air. Patient is admitted to the hospital with acute on chronic renal failure and CHF 03/26/2024; Patient is seen and evaluated in room at bedside; remains asymptomatic Vital signs are reviewed and remained stable heart rate 90, pulse ox 99% on room air, blood pressure 85/54. Repeat blood work reveals hemoglobin 9.5, BUN 72 creatinine 3.49. Patient is slightly more edema today. Patient was started on oral Bumex yesterday. Amlodipine, Jardiance and losartan remain on hold. Patient remains in atrial fibrillation; cardiology recommending to start on amiodarone 200 mg 3 times daily for 1 week followed by 200 mg twice daily for 1 week and then maintenance dose of 200 mg daily 03/27/2024 Patient is seen and evaluated in room at bedside; remains in atrial fibrillation with RVR Vital signs are reviewed and reveal temperature of 98, pulse 126, respirations 16 blood pressure of 98/64 and O2 saturation 97% on room -- Cardiology is following and recommended a fluid challenge yesterday given uptrending creatinine of 3.54 from 3.49 yesterday; patient remains on IV fluid in form of normal saline at a rate of 50 cc normal -- Will continue to monitor strict ROSE's, daily weights, renal function electrolytes; avoid nephrotoxins and hypotension -Today's labs are pending Patient has been placed on amiodarone loading dose of 200 mg 3 times daily for 1 week, 200 mg twice daily x 1 week followed by a maintenance dose of 200 mg daily Objective - Vital Signs Vital signs: Vital Signs Temp 98 F 03/27/24 00:00 Pulse 126 H 03/27/24 04:00 Resp 16 03/27/24 04:00 BP 98/64 03/27/24 04:00 Pulse Ox 97 03/27/24 04:00 FiO2 Intake & Output 03/26/24 03/27/24 03/27/24 18:59 06:59 18:59 Intake Total 1170 Output Total 750 Balance 420 Weight 90.6 kg Intake: Intake, IV Titration 50 Amount ceFAZolin 1 gm In Sodium 50 Chloride 0.9% 50 ml @ 100 mls/hr IVPB Q12HR [facility] Rx #:[id number] Oral 1120 Output: Urine 750 Other: Voiding Method Toilet Toilet External Catheter External Catheter # Voids 5 1 - Exam Gen: This is an 83-year-old female in no acute distress. VS: reviewed HEENT: Head is atraumatic, normocephalic. Pupils equal, round. Sclerae is anicteric. NECK: Supple. No JVD. LUNGS: Clear to auscultation. No wheezes or rhonchi. No intercostal retractions. HEART: Irregular rate and rhythm. No murmur. ABDOMEN: Soft No tenderness. EXTREMITIES: 2+ bilateral lower extremity edema with chronic skin changes. NEUROLOGICAL: Patient is awake, alert and oriented x3. - Labs CBC & Chem 7: 03/24/24 08:06 03/26/24 07:32 Labs: Abnormal Lab Results - Last 24 Hours (Table) 03/26/24 Range/Units 07:32 BUN 77 H (7-17) mg/dL Creatinine 3.54 H (0.52-1.04) mg/dL Assessment and Plan Assessment: 1. Mild acute on chronic systolic CHF/cardiomyopathy -- Echocardiogram is completed which reveals an LVEF of 30 to 35% -- Cardiology recommending to transition from Lasix to Bumex 1 mg daily -- Plan to monitor strict ROSE's, daily weights, low-salt and fluid restricted diet 2. Acute on chronic renal injury stage IV; likely secondary to ATN secondary to cardiorenal syndrome -Creatinine at 3.4 this morning; nephrology on board and recommending to continue to hold Inzaar and Moniquega -We will monitor strict ROSE's, daily weights, renal function electrolytes; avoid nephrotoxins and hypotension 3. Hypertension; Lopressor 25 mg twice daily and amlodipine; amlodipine has been placed on hold due to softer blood pressures 4. Hypothyroidism; levothyroxine 100 mg MCG alternating with 150 mcg every and Thursday 5. Diabetes mellitus type 2; Farxiga is placed on hold; monitor Accu-Cheks ACHS with insulin sliding scale 6. Paroxysmal atrial fibrillation; patient remains rate controlled on Lopressor 25 mg twice daily; anticoagulated with Eliquis 2.5 mg twice daily DVT prophylaxis; SCDs/systemic anticoagulation CODE STATUS; DNR
[2024-03-27 08:20] LABS: African American GFR (CKD) 14 (>60 ml/min/1.73 sqM); Anion Gap 10 mmol/L; Blood Urea Nitrogen 75 mg/dL (7-17); Calcium 9.2 mg/dL (8.4-10.2); Carbon Dioxide 21 mmol/L (22-30); Chloride 106 mmol/L (98-107); Glucose 84 mg/dL (74-99); Non-African American GFR(CKD) 12 (>60 ml/min/1.73 sqM); Sodium 137 mmol/L (137-145)
[2024-03-27 08:21] LABS: Magnesium 2.1 mg/dL (1.6-2.3); Potassium 4.8 mmol/L (3.5-5.1)
[2024-03-27 10:01] LABS: Basophils % (A) 1 %; Eosinophils # (A) 0.2 k/uL (0-0.7); Eosinophils % (A) 4 %; HCT 34.9 % (34.0-46.0); HGB 10.6 gm/dL (11.4-16.0); Lymphocytes # (A) 0.7 k/uL (1.0-4.8); Lymphocytes % (A) 15 %; MCH 31.4 pg (25.0-35.0); MCHC 30.4 g/dL (31.0-37.0); MCV 103.2 fL (80.0-100.0); Macrocytosis Slight; Mean Platelet Volume 8.5; Monocytes # (A) 0.4 k/uL (0-1.0); Monocytes % (A) 9 %; Neutrophils # (A) 3.2 k/uL (1.3-7.7); Neutrophils % (A) 70 %; Platelet Count 286 k/uL (150-450); RBC 3.38 m/uL (3.80-5.40); RDW 12.6 % (11.5-15.5); WBC 4.6 k/uL (3.8-10.6)
--- NOTE | 2024-03-27 12:22 | P.PN ---
Subjective patient is seen for follow-up for acute kidney injury and chronic kidney disease stage IV. currently maintained on IV fluids at 50 mL an hour. Bumex was held yesterday. No significant complaints today. serum creatinine at 3.25 mg/dL. Objective - Vital Signs Vital signs: Vital Signs Temp 98.5 F 03/27/24 11:41 Pulse 69 03/27/24 11:41 Resp 16 03/27/24 11:41 BP 90/61 03/27/24 11:41 Pulse Ox 95 03/27/24 11:41 FiO2 Intake & Output 03/26/24 03/27/24 03/27/24 18:59 06:59 18:59 Intake Total 1170 Output Total 750 600 Balance 420 -600 Weight 90.6 kg Intake: Intake, IV Titration 50 Amount ceFAZolin 1 gm In Sodium 50 Chloride 0.9% 50 ml @ 100 mls/hr IVPB Q12HR [facility] Rx #:[id number] Oral 1120 Output: Urine 750 600 Other: Voiding Method Toilet Toilet External Catheter External Catheter # Voids 5 1 - Exam patient is awake, comfortable, no acute distress. Examination of the heart S1 and S2 Examination of the lungs bilateral breath sounds are heard Abdomen is obese Examination of lower extremity shows edema 1+ bilaterally SENIOR PIPING DESIGNER exam grossly intact - Labs CBC & Chem 7: 03/27/24 07:19 03/27/24 07:19 Labs: Abnormal Lab Results - Last 24 Hours (Table) 03/27/24 03/27/24 Range/Units 07:19 07:19 RBC 3.38 L (3.80-5.40) m/uL Hgb 10.6 L (11.4-16.0) gm/dL MCV 103.2 H (80.0-100.0) fL MCHC 30.4 L (31.0-37.0) g/dL Lymphocytes # 0.7 L (1.0-4.8) k/uL Carbon Dioxide 21 L (22-30) mmol/L BUN 75 H (7-17) mg/dL Creatinine 3.25 H (0.52-1.04) mg/dL Assessment and Plan Assessment: 1. Acute kidney injury secondary to ATN secondary to cardiorenal syndrome. s tatus post diuresis and currently receiving IV fluids. Diuretics currently on hold. Creatinine at 3.25 today. UA fairly benign. Renal ultrasound from January 2024 showed no evidence of hydronephrosis. 2. Volume overload, improved since admission. 3. Acute on chronic systolic CHF ejection fraction of 30 to 35% with mild to moderate mitral regurgitation and moderate tricuspid regurgitation. 4. History of A-fib. 5. Diabetes mellitus. 6. Chronic kidney disease stage IV with creatinine in the range of 2.1-2.9 in January 2024. Etiology is nephrosclerosis and cardiorenal syndrome. Plan: DC IV fluids. Continue to hold Chriszaar and vasquezga Repeat labs in a.m. Consider adding inotropic agents if renal function does not improve further.
--- NOTE | 2024-03-27 12:57 | P.PN ---
Subjective Progress Note Date: 03/27/24 History of present illness: This is an 83-year-old female patient of Dr. Zoe Marshall with past medical history of diabetes mellitus type 2, hypertension, hypothyroidism, gastroesophageal reflux disease, paroxysmal atrial fibrillation, newly diagnosed cardiomyopathy. Patient gives history that she had recent blood work done as an outpatient and her industrial arts public school teacher called her and told her to come into the hospital as her kidney function had worsened. Patient is not aware of the medications that she is currently taking as she is at assisted living and they do all of her medications . She states she has felt good and no symptoms. She does have some lower extremity edema bilaterally and she noted that there is been some weeping the last couple of days. Patient had a recent hospitalization in January at which time she had new onset of paroxysmal atrial fibrillation and was started on Eliquis at that time. Her home medication list is now stating that she is on Xarelto but patient does not recall any physician changing her medications. Her last follow-up in the office was with Dr. Zoe Marshall on 02/19/2024. She denies chest pain. No palpitations. Blood pressure 100/40, heart rate 82, pulse ox 97% on room air. Patient is seen today in the emergency center waiting for bed on the cardiac stepdown unit. EKG none, telemetry atrial fibrillation 77 bpm, patient presented with heart rate 130s Renal ultrasound: Left renal cyst. Laboratory studies: WBC 6, hemoglobin 9.8, platelet count 287. Sodium 134, potassium 4.7, BUN 75 creatinine 3.45, glucose 119. Phosphorus 5.1, magnesium 2.2. Troponin negative x 1. Urinalysis leukoesterase moderate WBC 7. Home cardiac medications: Amlodipine 5 mg daily, Jardiance 10 mg daily, Lasix 40 mg every 48 hours, losartan 100 mg daily, magnesium oxide 400 mg twice daily, Lopressor 25 mg twice daily, K. Dur 20 mill equivalents every 48 hours, Xarelto 50 mg with supper. Patient also on levothyroxine. Echocardiogram performed on 02/09/2024 reveals EF of 30 to 35%. RVSP 39, severe biatrial enlargement. Mild to moderate MR, mild aortic regurgitation, moderate tricuspid regurgitation. 03/24 Telemetry is atrial fibrillation and controlled rate. Blood pressure 97/62, heart rate is in the 80s, pulse ox 98% on room air, afebrile. Repeat blood work reveals hemoglobin of 9.5. BUN 72, creatinine 3.49. Patient states she feels well today. Edema in LE is improved. She is keeping legs elevated. Yesterday we ordered 2 doses of IV Lasix 40 mg and transition to oral Lasix 40 mg daily starting this morning. Chest x-ray reveals cardiomegaly with no evidence of focal pneumonia or overt failure. EKG atrial fibrillation with ventricular rate of 116 bpm. Bladder scan was 53 mL. 03/25 Patient remains in atrial fibrillation, heart rate 90, pulse ox 99% on room air, blood pressure 85/54. Patient is slightly more edema today. Patient was started on oral Bumex yesterday. Amlodipine, Jardiance and losartan remain on hold. Repeat blood work reveals hemoglobin 9.5, BUN 72 creatinine 3.49. 03/26/2024 Patient remains in rate controlled atrial fibrillation. Patient's blood pressure is however low with systolic blood pressure around 80s, diastolic around 50s. Patient's renal function is slightly trending up. We have held her Jardiance and losartan and continue to give her Bumex. Because of her uptrending creatinine, will hold on further diuretics and will start a fluid challenge. March 27, 2024 BP 90/61, heart rate 80 bpm, rate controlled atrial fibrillation. For some reason patient has a low blood pressure in bilateral upper extremity. I repeated the manual blood pressure with similar readings. Patient is however asymptomatic. She denies any lightheadedness or dizziness. Her lower extremity swelling is much better. I held her diuretic yesterday and gave her gentle hydration. Her creatinine improved to 3.25. Prior to admission her creatinine was around 2.5. On admission she came to the hospital with 3.45. On admission she had bilateral lower extremity congestion with erythema. This has resolved. Physical examination: Gen: This is an 83-year-old female in no acute distress. VS: reviewed HEENT: Head is atraumatic, normocephalic. Pupils equal, round. Sclerae is anicteric. NECK: Supple. No JVD. LUNGS: Clear to auscultation. No wheezes or rhonchi. No intercostal retractions. HEART: Irregular rate and rhythm. No murmur. ABDOMEN: Soft No tenderness. EXTREMITIES: 1+ bilateral lower, denies getting better NEUROLOGICAL: Patient is awake, alert and oriented x3. Assessment: Paroxysmal atrial fibrillation with RVR, currently rate controlled afib Acute kidney injury on CKD Cardiomyopathy with a EF of 30 to 35%, unknown type Mild acute on chronic systolic heart failure Diabetes mellitus type 2 Hypertension Hypothyroidism Gastroesophageal reflux disease Recent weight loss Plan: When patient presented she had lower extremity edema with concerns of cellulitis. She responded well to diuretic therapy but her kidney function has trended up. She also has low blood pressure but is asymptomatic from it and sitting position. She has cardiomyopathy with EF of 30%. I will hold on further diuretics. I will hold her further IV fluids. Will monitor renal function Ambulate the patient in the unit and see if patient has any signs symptoms of hypotension or orthostasis Continue Eliquis 2.5 mg twice daily Amlodipine, Jardiance, losartan are on hold On discharge, discharged her on amiodarone taper with amiodarone 200 mg twice daily for 1 week and then 200 mg daily Dissipate discharge in next 24 hours. Patient to follow-up in the office with Dr. Zoe Marshall in 1 to 2 weeks. Repeat CMP and TSH as an outpatient within the week. Results to Drs. Espinoza and Zoe Marshall. Objective - Vital Signs Vital signs: Vital Signs Temp 98.5 F 03/27/24 11:41 Pulse 69 03/27/24 11:41 Resp 16 03/27/24 11:41 BP 90/61 03/27/24 11:41 Pulse Ox 95 03/27/24 11:41 FiO2 Intake & Output 03/26/24 03/27/24 03/27/24 18:59 06:59 18:59 Intake Total 1170 Output Total 750 600 Balance 420 -600 Weight 90.6 kg Intake: Intake, IV Titration 50 Amount ceFAZolin 1 gm In Sodium 50 Chloride 0.9% 50 ml @ 100 mls/hr IVPB Q12HR [facility] Rx #:[id number] Oral 1120 Output: Urine 750 600 Other: Voiding Method Toilet Toilet External Catheter External Catheter # Voids 5 1 - Labs CBC & Chem 7: 03/27/24 07:19 03/27/24 07:19 Labs: Abnormal Lab Results - Last 24 Hours (Table) 03/27/24 03/27/24 Range/Units 07:19 07:19 RBC 3.38 L (3.80-5.40) m/uL Hgb 10.6 L (11.4-16.0) gm/dL MCV 103.2 H (80.0-100.0) fL MCHC 30.4 L (31.0-37.0) g/dL Lymphocytes # 0.7 L (1.0-4.8) k/uL Carbon Dioxide 21 L (22-30) mmol/L BUN 75 H (7-17) mg/dL Creatinine 3.25 H (0.52-1.04) mg/dL
[2024-03-28 08:30] LABS: Basophils # (A) 0.1 k/uL (0-0.2); Basophils % (A) 1 %; Eosinophils # (A) 0.2 k/uL (0-0.7); Eosinophils % (A) 6 %; HCT 33.1 % (34.0-46.0); HGB 10.1 gm/dL (11.4-16.0); Hypochromasia Slight; Lymphocytes # (A) 0.8 k/uL (1.0-4.8); Lymphocytes % (A) 19 %; MCH 31.7 pg (25.0-35.0); MCHC 30.6 g/dL (31.0-37.0); MCV 103.7 fL (80.0-100.0); Macrocytosis Slight; Mean Platelet Volume 8.5; Monocytes # (A) 0.3 k/uL (0-1.0); Monocytes % (A) 7 %; Neutrophils # (A) 2.7 k/uL (1.3-7.7); Neutrophils % (A) 65 %; Platelet Count 277 k/uL (150-450); RDW 12.7 % (11.5-15.5); WBC 4.2 k/uL (3.8-10.6)
[2024-03-28 08:46] LABS: African American GFR (CKD) 15 (>60 ml/min/1.73 sqM); Anion Gap 5 mmol/L; Blood Urea Nitrogen 66 mg/dL (7-17); Calcium 9.2 mg/dL (8.4-10.2); Carbon Dioxide 29 mmol/L (22-30); Chloride 104 mmol/L (98-107); Glucose 90 mg/dL (74-99); Non-African American GFR(CKD) 13 (>60 ml/min/1.73 sqM); Potassium 4.4 mmol/L (3.5-5.1); Sodium 138 mmol/L (137-145)
[2024-03-28 12:01] LABS: Glucose,Whole Blood 82 mg/dL (70-110)
--- NOTE | 2024-03-28 12:07 | P.PN ---
Subjective patient is seen for follow-up for acute kidney injury and chronic kidney disease stage IV. status post IV fluids No significant complaints today. serum creatinine at 3.18 mg/dL. Objective - Vital Signs Vital signs: Vital Signs Temp 97.9 F 03/28/24 11:51 Pulse 108 H 03/28/24 11:51 Resp 17 03/28/24 11:51 BP 115/80 03/28/24 11:51 Pulse Ox 99 03/28/24 11:51 FiO2 Intake & Output 03/27/24 03/28/24 03/28/24 18:59 06:59 18:59 Intake Total 1016 50 Output Total 600 650 Balance 416 -650 50 Weight 91.4 kg Intake: Oral 1016 50 Output: Urine 600 650 Other: Voiding Method Toilet Toilet External Catheter External Catheter # Bowel Movements 1 - Exam patient is awake, comfortable, no acute distress. Examination of the heart S1 and S2 Examination of the lungs bilateral breath sounds are heard Abdomen is obese Examination of lower extremity shows edema 1+ bilaterally VINYL INSTALLER exam grossly intact - Labs CBC & Chem 7: 03/28/24 07:52 03/28/24 07:52 Labs: Abnormal Lab Results - Last 24 Hours (Table) 03/28/24 03/28/24 Range/Units 07:52 07:52 RBC 3.20 L (3.80-5.40) m/uL Hgb 10.1 L (11.4-16.0) gm/dL Hct 33.1 L (34.0-46.0) % MCV 103.7 H (80.0-100.0) fL MCHC 30.6 L (31.0-37.0) g/dL Lymphocytes # 0.8 L (1.0-4.8) k/uL BUN 66 H (7-17) mg/dL Creatinine 3.18 H (0.52-1.04) mg/dL Assessment and Plan Assessment: 1. Acute kidney injury secondary to ATN secondary to cardiorenal syndrome. status post diuresis and currently receiving IV fluids. Diuretics currently on hold. Creatinine at 3.18 today. UA fairly benign. Renal ultrasound from January 2024 showed no evidence of hydronephrosis. 2. Volume overload, improved since admission. 3. Acute on chronic systolic CHF ejection fraction of 30 to 35% with mild to moderate mitral regurgitation and moderate tricuspid regurgitation. 4. History of A-fib. 5. Diabetes mellitus. 6. Chronic kidney disease stage IV with creatinine in the range of 2.1-2.9 in January 2024. Etiology is nephrosclerosis and cardiorenal syndrome. Plan: continue off of IV fluids. Diuretics remain on hold. Continue to hold Cozaar and farxiga Repeat labs in a.m.
--- NOTE | 2024-03-28 12:45 | P.PN ---
Subjective HISTORY OF PRESENT ILLNESS: This is an 83-year-old female patient of Dr. Zoe Marshall with past medical history of diabetes mellitus type 2, hypertension, hypothyroidism, gastroesophageal reflux disease, paroxysmal atrial fibrillation, newly diagnosed cardiomyopathy. Patient gives history that she had recent blood work done as an outpatient and her yarder called her and told her to come into the hospital as her kidney function had worsened. Patient is not aware of the medications that she is currently taking as she is at assisted living and they do all of her medications. She states she has felt good and no symptoms. She does have some lower extremity edema bilaterally and she noted that there is been some weeping the last couple of days. Patient had a recent hospitalization in January at which time she had new onset of paroxysmal atrial fibrillation and was started on Eliquis at that time. Her home medication list is now stating that she is on Xarelto but patient does not recall any physician changing her medications. Her last follow-up in the office was with Dr. Zeo Marshall on 02/19/2024. She denies chest pain. No palpitations. Blood pressure 100/40, heart rate 82, pulse ox 97% on room air. Patient is seen today in the emergency center waiting for bed on the cardiac stepdown unit. EKG none, telemetry atrial fibrillation 77 bpm, patient presented with heart rate 130s Renal ultrasound: Left renal cyst. Laboratory studies: WBC 6, hemoglobin 9.8, platelet count 287. Sodium 134, potassium 4.7, BUN 75 creatinine 3.45, glucose 119. Phosphorus 5.1, magnesium 2.2. Troponin negative x 1. Urinalysis leukoesterase moderate WBC 7. Home cardiac medications: Amlodipine 5 mg daily, Jardiance 10 mg daily, Lasix 40 mg every 48 hours, losartan 100 mg daily, magnesium oxide 400 mg twice daily, Lopressor 25 mg twice daily, K. Dur 20 mill equivalents every 48 hours, Xarelto 50 mg with supper. Patient also on levothyroxine. Echocardiogram performed on 02/09/2024 reveals EF of 30 to 35%. RVSP 39, severe biatrial enlargement. Mild to moderate MR, mild aortic regurgitation, moderate tricuspid regurgitation. 03/24 Telemetry is atrial fibrillation and controlled rate. Blood pressure 97/62, heart rate is in the 80s, pulse ox 98% on room air, afebrile. Repeat blood work reveals hemoglobin of 9.5. BUN 72, creatinine 3.49. Patient states she feels well today. Edema in LE is improved. She is keeping legs elevated. Yesterday we ordered 2 doses of IV Lasix 40 mg and transition to oral Lasix 40 mg daily starting this morning. Chest x-ray reveals cardiomegaly with no evidence of focal pneumonia or overt failure. EKG atrial fibrillation with ventricular rate of 116 bpm. Bladder scan was 53 mL. 03/25 Patient remains in atrial fibrillation, heart rate 90, pulse ox 99% on room air, blood pressure 85/54. Patient is slightly more edema today. Patient was started on oral Bumex yesterday. Amlodipine, Jardiance and losartan remain on hold. Repeat blood work reveals hemoglobin 9.5, BUN 72 creatinine 3.49. 03/26/2024 Patient remains in rate controlled atrial fibrillation. Patient's blood pressure is however low with systolic blood pressure around 80s, diastolic around 50s. Patient's renal function is slightly trending up. We have held her Jardiance and losartan and continue to give her Bumex. Because of her up trending creatinine, will hold on further diuretics and will start a fluid challenge. March 27, 2024 BP 90/61, heart rate 80 bpm, rate controlled atrial fibrillation. For some reason patient has a low blood pressure in bilateral upper extremity. I repeated the manual blood pressure with similar readings. Patient is however asymptomatic. She denies any lightheadedness or dizziness. Her lower extremity swelling is much better. I held her diuretic yesterday and gave her gentle hydration. Her creatinine improved to 3.25. Prior to admission her creatinine was around 2.5. On admission she came to the hospital with 3.45. On admission she had bilateral lower extremity congestion with erythema. This has resolved. 03/28/2024 Patient examined this morning at the bedside. Patient currently denies chest pain or pressure. She denies shortness of breath. Telemetry reveals atrial fibrillation with heart rate in the low 100s. Patient's blood pressures remain soft in the 90s. Patient's creatinine 3.18 today. She remains off diuretics and off IV fluids. PHYSICAL EXAM: VITAL SIGNS: Reviewed. GENERAL: Well-developed in no acute distress. NECK: Supple. No JVD or thyromegaly LUNGS: Respirations even and unlabored. Lungs essentially clear to auscultation bilaterally. HEART: Mildly tachycardic. Irregular rate and rhythm. S1 and S2 heard. EXTREMITIES: Normal range of motion. No clubbing or cyanosis. Peripheral pulses intact. Trace bilateral lower extremity edema ASSESSMENT: Paroxysmal atrial fibrillation with RVR, currently rate controlled afib Acute kidney injury on CKD Cardiomyopathy with a EF of 30 to 35%, unknown type Mild acute on chronic systolic heart failure Diabetes mellitus type 2 Hypertension Hypothyroidism Gastroesophageal reflux disease Recent weight loss PLAN: Patient's losartan and Farxiga remain on hold secondary to BLAKE Continue to hold diuretics. No further IV fluids at this time Continue to monitor kidney function. Nephrology following. Continue telemetry monitoring Unable to increase rate controlling medications due to borderline hypotension Further recommendations pending patient course Nurse practitioner note has been reviewed by physician. Signing provider agrees with the documented findings, assessment, and plan of care documented by MARZIPAN MAKER as a scribe. Objective - Vital Signs Vital signs: Vital Signs Temp 97.9 F 03/28/24 11:51 Pulse 108 H 03/28/24 11:51 Resp 17 03/28/24 11:51 BP 115/80 03/28/24 11:51 Pulse Ox 99 03/28/24 11:51 FiO2 Intake & Output 03/27/24 03/28/24 03/28/24 18:59 06:59 18:59 Intake Total 1016 50 Output Total 600 650 Balance 416 -650 50 Weight 91.4 kg Intake: Oral 1016 50 Output: Urine 600 650 Other: Voiding Method Toilet Toilet External Catheter External Catheter # Voids 3 # Bowel Movements 1 - Labs CBC & Chem 7: 03/28/24 07:52 03/28/24 07:52 Labs: Abnormal Lab Results - Last 24 Hours (Table) 03/28/24 03/28/24 Range/Units 07:52 07:52 RBC 3.20 L (3.80-5.40) m/uL Hgb 10.1 L (11.4-16.0) gm/dL Hct 33.1 L (34.0-46.0) % MCV 103.7 H (80.0-100.0) fL MCHC 30.6 L (31.0-37.0) g/dL Lymphocytes # 0.8 L (1.0-4.8) k/uL BUN 66 H (7-17) mg/dL Creatinine 3.18 H (0.52-1.04) mg/dL
[2024-03-28 16:08] LABS: Glucose,Whole Blood 109 mg/dL (70-110)
[2024-03-28 20:16] LABS: Glucose,Whole Blood 132 mg/dL (70-110)
--- NOTE | 2024-03-28 23:16 | P.PN ---
Subjective Progress Note Date: 03/28/24 HISTORY OF PRESENT ILLNESS: 83-year-old One of my office patients along: I was hospitalized on 03/23/2024 for acute kidney injury and acute tubular necrosis with GFR quite bit low etiology was not a clear but similar to her last admission with weight loss, not eating and drinking fluid, hypertension which created worsening kidney function was watched quite bit carefully for the last few weeks. Patient is known to have type 2 diabetes, hypertension, hypothyroidism, severe GERD, paroxysmal A-fib with new diagnosis of cardiomyopathy has been seeing cardiology as an outpatient and required with change in medication recently. Last few days continue to have creatinine at 3.25 with GFR is quite bit low consistent with stage IV chronic kidney disease. Does not require any hemodialysis yet, still seen nephrology and cardiology. Remain on IV fluid diuretics has been on hold since admission. Merari and Mihaela were held nephrology will think about adding inotropic agent currently to watch kidney function closely. Cardiology yesterday seen patient with blood pressure still slightly below with pulse rates controlled in the 80s continue to have low blood pressure which is not symptomatic. Recommending to do gentle hydration to improve the kidney function she had again cardiomyopathy trying to keep her on better medication for cardiomyopathy along with diuretics to keep her from having any fluid overload, worsening shortness of breath and symptoms of heart failure. 03/28/2024: Hemoglobin is down to 10.1 with stable creatinine remained at 3.18 with GFR at 13. Patient still seen nephrology does not require any hemodialysis she is not making much urine. Weight is coming down total of 6 kg since admission on the second. Shortness of breath continue to improve significantly, her anasarca and edema has been slightly better. REVIEW OF SYSTEMS: CONSTITUTIONAL: Well-developed no acute respiratory distress. EYES: No icterus sclerae, no conjunctivitis. EARS, NOSE, MOUTH, THROAT, and FACE: No sore throat, lymphadenopathy, carotid bruits or deformity. RESPIRATORY: No SOB cough or wheezes. CARDIOVASCULAR: No CP, Palpitation, PND, Orthopnea, or angina. GASTROINTESTINAL: No Abd pain, Nausea or vomiting, no Diarrhea or constipation, No GI Bleed, no distention or masses. GENITOURINARY: Negative for Hematuria or UTI, no kidney stones. INTEGUMENT/BREAST: Negative for any muscular injury with mild osteoarthritis.. HEMATOLOGIC/LYMPHATIC: Negative for bleed or purpura. MUSCULOSKELTAL: Negative for Myalgia or arthralgia. NEURLOGICAL: No LOC, Sz or syncope, blurred vision dizziness or abnormality.. BEHAVIORAL/PSYCH: Negative. ENDOCRINE: Negative. PHYSICAL EXAMINATION: General Appearance: Alert, cooperative, no distress, appears stated age. Neck HEENT: Supple, no lymphadenopathy, no thyroid enlargement, no carotid bruits. Lungs: Clear to auscultation without crackles or wheezes no rhonchi, no deformity. Chest Wall: Chest wall normal expansion with deep inspiration no tenderness and no deformity was found on exam, no costochondral pain or discomfort. Heart: Regular rate and rhythm, S1, S2 normal, no murmur, rub or gallop. Back: Symmetric, no curvature, ROM normal, no CVA tenderness. Abdomen: Soft, non-tender, bowel sounds active all four quadrants, no masses, no organomegaly. Extremities: Extremities normal, atraumatic, no cyanosis or edema. Pulses: 2+ and symmetric. Skin: Skin color, texture, tugor normal, no rashes or lesions. Neurologic: Alert oriented x3 cranial nerves II through XII intact, no motor deficit, no abnormal balance or gait. ASSESSMENT AND PLAN: _Acute kidney injury with stage IV chronic kidney disease: Continue supportive care And avoid any nephrotoxic agent continue to be seen by nephrology does not require any hemodialysis yet. _Mild acute on chronic systolic congestive heart failure/cardiomyopathy with ejection fraction of 30-35 percentile. Diuretics were changed from Lasix to Bumex 1 mg a day, continue salt restriction along with fluid restriction at this point. SGLT2 product and ARB has been held. _A-fib with RVR: Pulse rates under control remain on Eliquis 2.5 mg twice a day and on Lopressor 25 mg twice a day which seems to be better controlled. _Type 2 diabetes was on SGLT2 product has been on hold for now continue Accu- Chek with sliding scales coverage. _Hypertension: Was on amlodipine, losartan and Lopressor losartan has been held for now and because of blood pressure quite bit low still holding amlodipine. _Anasarca and edema: Chronic was on diuretics for long time has been holding it off for now. _Mild neuropathy: On duloxetine. _Hypothyroidism: Remain on levothyroxine between 100 and 150 mcg daily. _Hyperlipidemia: Could not tolerate any type of statin with extremely major myalgia and documented worsening myositis: Patient was recommended Repatha but was not affordable at the time. Still can benefit from remain on Zetia 10 mg a day. _Chronic pain syndrome: Secondary to compression vertebrae in the thoracic spine has been on hydrocodone. _GI prophylaxis: Continue Pepcid 20 mg daily. _Bilateral leg cellulitis: Continue Rocephin for now along with topical Silvadene. CODE STATUS: DO NOT RESUSCITATE. Discharge planning: Possibly home in the next 24 to 48 hours. Still having to wait and watch to see the kidney function improved and with the patient require hemodialysis or not. Objective - Vital Signs Vital signs: Vital Signs Temp 98.1 F 03/27/24 23:22 Pulse 113 H 03/27/24 23:22 Resp 18 03/27/24 23:22 BP 100/66 03/27/24 23:22 Pulse Ox 95 03/27/24 23:22 FiO2 Intake & Output 03/27/24 03/27/24 03/28/24 06:59 18:59 06:59 Intake Total 1016 Output Total 600 500 Balance 416 -500 Weight 90.6 kg Intake: Oral 1016 Output: Urine 600 500 Other: Voiding Method Toilet Toilet Toilet External Catheter External Catheter External Catheter # Voids 1 # Bowel Movements 1 - Labs CBC & Chem 7: 03/28/24 07:52 03/28/24 07:52 Labs: Abnormal Lab Results - Last 24 Hours (Table) 03/27/24 03/27/24 Range/Units 07:19 07:19 RBC 3.38 L (3.80-5.40) m/uL Hgb 10.6 L (11.4-16.0) gm/dL MCV 103.2 H (80.0-100.0) fL MCHC 30.4 L (31.0-37.0) g/dL Lymphocytes # 0.7 L (1.0-4.8) k/uL Carbon Dioxide 21 L (22-30) mmol/L BUN 75 H (7-17) mg/dL Creatinine 3.25 H (0.52-1.04) mg/dL
[2024-03-29 05:27] LABS: Glucose,Whole Blood 84 mg/dL (70-110)
[2024-03-29 10:43] LABS: ALT <6 U/L (4-34); AST 18 U/L (14-36); African American GFR (CKD) 16 (>60 ml/min/1.73 sqM); Albumin 3.1 g/dL (3.5-5.0); Alkaline Phosphatase 117 U/L (38-126); Anion Gap 5 mmol/L; Blood Urea Nitrogen 61 mg/dL (7-17); Calcium 9.2 mg/dL (8.4-10.2); Carbon Dioxide 29 mmol/L (22-30); Chloride 104 mmol/L (98-107); Glucose 81 mg/dL (74-99); Non-African American GFR(CKD) 14 (>60 ml/min/1.73 sqM); Potassium 4.4 mmol/L (3.5-5.1); Sodium 138 mmol/L (137-145); Total Bilirubin 0.5 mg/dL (0.2-1.3); Total Protein 5.8 g/dL (6.3-8.2)
[2024-03-29 11:01] LABS: Basophils # (A) 0.1 k/uL (0-0.2); Basophils % (A) 1 %; Eosinophils # (A) 0.2 k/uL (0-0.7); Eosinophils % (A) 5 %; HGB 10.2 gm/dL (11.4-16.0); Lymphocytes # (A) 0.6 k/uL (1.0-4.8); Lymphocytes % (A) 15 %; MCH 32.5 pg (25.0-35.0); MCHC 31.8 g/dL (31.0-37.0); Macrocytosis Slight; Mean Platelet Volume 9.1; Monocytes # (A) 0.4 k/uL (0-1.0); Monocytes % (A) 10 %; Neutrophils # (A) 2.9 k/uL (1.3-7.7); Neutrophils % (A) 67 %; Platelet Count 282 k/uL (150-450); RBC 3.13 m/uL (3.80-5.40); RDW 12.9 % (11.5-15.5); WBC 4.4 k/uL (3.8-10.6)
[2024-03-29 11:28] LABS: Glucose,Whole Blood 84 mg/dL (70-110)
[2024-03-29] MEDS: METOPROLOL TARTRATE 12.5 MG TAB PO STA (12:23)
--- NOTE | 2024-03-29 12:46 | P.PN ---
Subjective HISTORY OF PRESENT ILLNESS: This is an 83-year-old female patient of Dr. Zoe Marshall with past medical history of diabetes mellitus type 2, hypertension, hypothyroidism, gastroesophageal reflux disease, paroxysmal atrial fibrillation, newly diagnosed cardiomyopathy. Patient gives history that she had recent blood work done as an outpatient and her roll cleaner called her and told her to come into the hospital as her kidney function had worsened. Patient is not aware of the medications that she is currently taking as she is at assisted living and they do all of her medications. She states she has felt good and no symptoms. She does have some lower extremity edema bilaterally and she noted that there is been some weeping the last couple of days. Patient had a recent hospitalization in January at which time she had new onset of paroxysmal atrial fibrillation and was started on Eliquis at that time. Her home medication list is now stating that she is on Xarelto but patient does not recall any physician changing her medications. Her last follow-up in the office was with Dr. Zoe Marshall on 02/19/2024. She denies chest pain. No palpitations. Blood pressure 100/40, heart rate 82, pulse ox 97% on room air. Patient is seen today in the emergency center waiting for bed on the cardiac stepdown unit. EKG none, telemetry atrial fibrillation 77 bpm, patient presented with heart rate 130s Renal ultrasound: Left renal cyst. Laboratory studies: WBC 6, hemoglobin 9.8, platelet count 287. Sodium 134, potassium 4.7, BUN 75 creatinine 3.45, glucose 119. Phosphorus 5.1, magnesium 2.2. Troponin negative x 1. Urinalysis leukoesterase moderate WBC 7. Home cardiac medications: Amlodipine 5 mg daily, Jardiance 10 mg daily, Lasix 40 mg every 48 hours, losartan 100 mg daily, magnesium oxide 400 mg twice daily, Lopressor 25 mg twice daily, K. Dur 20 mill equivalents every 48 hours, Xarelto 50 mg with supper. Patient also on levothyroxine. Echocardiogram performed on 02/09/2024 reveals EF of 30 to 35%. RVSP 39, severe biatrial enlargement. Mild to moderate MR, mild aortic regurgitation, moderate tricuspid regurgitation. 03/24 Telemetry is atrial fibrillation and controlled rate. Blood pressure 97/62, heart rate is in the 80s, pulse ox 98% on room air, afebrile. Repeat blood work reveals hemoglobin of 9.5. BUN 72, creatinine 3.49. Patient states she feels well today. Edema in LE is improved. She is keeping legs elevated. Yesterday we ordered 2 doses of IV Lasix 40 mg and transition to oral Lasix 40 mg daily starting this morning. Chest x-ray reveals cardiomegaly with no evidence of focal pneumonia or overt failure. EKG atrial fibrillation with ventricular rate of 116 bpm. Bladder scan was 53 mL. 03/25 Patient remains in atrial fibrillation, heart rate 90, pulse ox 99% on room air, blood pressure 85/54. Patient is slightly more edema today. Patient was started on oral Bumex yesterday. Amlodipine, Jardiance and losartan remain on hold. Repeat blood work reveals hemoglobin 9.5, BUN 72 creatinine 3.49. 03/26/2024 Patient remains in rate controlled atrial fibrillation. Patient's blood pressure is however low with systolic blood pressure around 80s, diastolic around 50s. Patient's renal function is slightly trending up. We have held her Jardiance and losartan and continue to give her Bumex. Because of her up trending creatinine, will hold on further diuretics and will start a fluid challenge. March 27, 2024 BP 90/61, heart rate 80 bpm, rate controlled atrial fibrillation. For some reason patient has a low blood pressure in bilateral upper extremity. I repeated the manual blood pressure with similar readings. Patient is however asymptomatic. She denies any lightheadedness or dizziness. Her lower extremity swelling is much better. I held her diuretic yesterday and gave her gentle hydration. Her creatinine improved to 3.25. Prior to admission her creatinine was around 2.5. On admission she came to the hospital with 3.45. On admission she had bilateral lower extremity congestion with erythema. This has resolved. 03/28/2024 Patient examined this morning at the bedside. Patient currently denies chest pain or pressure. She denies shortness of breath. Telemetry reveals atrial fibrillation with heart rate in the low 100s. Patient's blood pressures remain soft in the 90s. Patient's creatinine 3.18 today. She remains off diuretics and off IV fluids. 03/29/2024 Patient examined this morning. Patient is sitting up in the chair. Patient currently denies chest pain or pressure. She denies shortness of breath. Telemetry reveals atrial fibrillation with a heart rate around 110. Patient's blood pressures have improved today. Creatinine stable at 2.98. PHYSICAL EXAM: VITAL SIGNS: Reviewed. GENERAL: Well-developed in no acute distress. NECK: Supple. No JVD or thyromegaly LUNGS: Respirations even and unlabored. Lungs essentially clear to auscultation bilaterally. HEART: Mildly tachycardic. Irregular rate and rhythm. S1 and S2 heard. EXTREMITIES: Normal range of motion. No clubbing or cyanosis. Peripheral pulses intact. Trace bilateral lower extremity edema ASSESSMENT: Paroxysmal atrial fibrillation with RVR, currently rate controlled afib Acute kidney injury on CKD Cardiomyopathy with a EF of 30 to 35%, unknown type Mild acute on chronic systolic heart failure Diabetes mellitus type 2 Hypertension Hypothyroidism Gastroesophageal reflux disease Recent weight loss PLAN: Patient's losartan and Farxiga remain on hold secondary to BLAKE Continue to hold diuretics. No further IV fluids at this time Continue to monitor kidney function. Nephrology following. Continue telemetry monitoring Increase metoprolol to 25 mg twice a day as patient's blood pressure has improved today Patient is currently stable from a cardiac perspective Further recommendations pending patient course Nurse practitioner note has been reviewed by physician. Signing provider agrees with the documented findings, assessment, and plan of care documented by FINGERNAIL FORMER as a scribe. Objective - Vital Signs Vital signs: Vital Signs Temp 97.5 F L 03/29/24 08:15 Pulse 85 03/29/24 08:15 Resp 18 03/29/24 08:15 BP 112/57 03/29/24 08:15 Pulse Ox 100 03/29/24 08:15 FiO2 Intake & Output 03/28/24 03/29/24 03/29/24 18:59 06:59 18:59 Intake Total 168 180 Balance 168 180 Weight 92.1 kg Intake: Oral 168 180 Other: Voiding Method Toilet Toilet Toilet External Catheter External Catheter External Catheter # Voids 3 1 2 - Labs CBC & Chem 7: 03/29/24 09:38 03/29/24 09:38 Labs: Abnormal Lab Results - Last 24 Hours (Table) 03/28/24 03/29/24 03/29/24 Range/Units 20:15 09:38 09:38 RBC 3.13 L (3.80-5.40) m/uL Hgb 10.2 L (11.4-16.0) gm/dL Hct 32.0 L (34.0-46.0) % MCV 102.0 H (80.0-100.0) fL Lymphocytes # 0.6 L (1.0-4.8) k/uL BUN 61 H (7-17) mg/dL Creatinine 2.98 H (0.52-1.04) mg/dL POC Glucose (mg/dL) 132 H (70-110) mg/dL Total Protein 5.8 L (6.3-8.2) g/dL Albumin 3.1 L (3.5-5.0) g/dL
--- NOTE | 2024-03-29 13:17 | P.PN ---
Subjective patient is seen for follow-up for acute kidney injury and chronic kidney disease stage IV. status post IV fluids No significant complaints today. serum creatinine at 2.9mg/dL. Objective - Vital Signs Vital signs: Vital Signs Temp 97.5 F L 03/29/24 08:15 Pulse 85 03/29/24 08:15 Resp 18 03/29/24 08:15 BP 112/57 03/29/24 08:15 Pulse Ox 100 03/29/24 08:15 FiO2 Intake & Output 03/28/24 03/29/24 03/29/24 18:59 06:59 18:59 Intake Total 168 180 Balance 168 180 Weight 92.1 kg Intake: Oral 168 180 Other: Voiding Method Toilet Toilet Toilet External Catheter External Catheter External Catheter # Voids 3 1 2 - Exam patient is awake, comfortable, no acute distress. Examination of the heart S1 and S2 Examination of the lungs bilateral breath sounds are heard Abdomen is obese Examination of lower extremity shows edema 1+ bilaterally GRE INSTRUCTOR exam grossly intact - Labs CBC & Chem 7: 03/29/24 09:38 03/29/24 09:38 Labs: Abnormal Lab Results - Last 24 Hours (Table) 03/28/24 03/29/24 03/29/24 Range/Units 20:15 09:38 09:38 RBC 3.13 L (3.80-5.40) m/uL Hgb 10.2 L (11.4-16.0) gm/dL Hct 32.0 L (34.0-46.0) % MCV 102.0 H (80.0-100.0) fL Lymphocytes # 0.6 L (1.0-4.8) k/uL BUN 61 H (7-17) mg/dL Creatinine 2.98 H (0.52-1.04) mg/dL POC Glucose (mg/dL) 132 H (70-110) mg/dL Total Protein 5.8 L (6.3-8.2) g/dL Albumin 3.1 L (3.5-5.0) g/dL Assessment and Plan Assessment: 1. Acute kidney injury secondary to ATN secondary to cardiorenal syndrome. status post diuresis. Diuretics currently on hold. Creatinine at 2.9 today. UA fairly benign. Renal ultrasound from January 2024 showed no evidence of hydronephrosis. 2. Volume overload, improved since admission. 3. Acute on chronic systolic CHF ejection fraction of 30 to 35% with mild to moderate mitral regurgitation and moderate tricuspid regurgitation. 4. History of A-fib. 5. Diabetes mellitus. 6. Chronic kidney disease stage IV with creatinine in the range of 2.1-2.9 in January 2024. Etiology is nephrosclerosis and cardiorenal syndrome. Plan: continue off of IV fluids. Diuretics remain on hold. Continue to hold Mihaela and stephenie follow-up as outpatient for C daily
[2024-03-29 16:27] LABS: Glucose,Whole Blood 98 mg/dL (70-110)
[2024-03-29 20:03] LABS: Glucose,Whole Blood 108 mg/dL (70-110)
[2024-03-29] MEDS: METOPROLOL TARTRATE 25 MG TAB PO SCH (21:20)
[2024-03-30 06:06] LABS: Glucose,Whole Blood 87 mg/dL (70-110)
--- NOTE | 2024-03-30 06:08 | P.PN ---
Subjective Progress Note Date: 03/29/24 HISTORY OF PRESENT ILLNESS: 83-year-old One of my office patients along: I was hospitalized on 03/23/2024 for acute kidney injury and acute tubular necrosis with GFR quite bit low etiology was not a clear but similar to her last admission with weight loss, not eating and drinking fluid, hypertension which created worsening kidney function was watched quite bit carefully for the last few weeks. Patient is known to have type 2 diabetes, hypertension, hypothyroidism, severe GERD, paroxysmal A-fib with new diagnosis of cardiomyopathy has been seeing cardiology as an outpatient and required with change in medication recently. Last few days continue to have creatinine at 3.25 with GFR is quite bit low consistent with stage IV chronic kidney disease. Does not require any hemodialysis yet, still seen nephrology and cardiology. Remain on IV fluid diuretics has been on hold since admission. Farxiga and Cozaar were held nephrology will think about adding inotropic agent currently to watch kidney function closely. Cardiology yesterday seen patient with blood pressure still slightly below with pulse rates controlled in the 80s continue to have low blood pressure which is not symptomatic. Recommending to do gentle hydration to improve the kidney function she had again cardiomyopathy trying to keep her on better medication for cardiomyopathy along with diuretics to keep her from having any fluid overload, worsening shortness of breath and symptoms of heart failure. 03/28/2024: Hemoglobin is down to 10.1 with stable creatinine remained at 3.18 with GFR at 13. Patient still seen nephrology does not require any hemodialysis she is not making much urine. Weight is coming down total of 6 kg since admission on the second. Shortness of breath continue to improve significantly, her anasarca and edema has been slightly better. 03/29/2024: Creatinine still running at 2.9 patient still to continue on IV fluid holding diuretics holding Cozaar and Farxiga per nephrology consultation recommendation and still does not require any hemodialysis. Still making some urine output claim of kidney function mostly on nephrosclerosis and cardiorenal syndrome. Patient ejection fraction is only 30-35 percentile with moderate mitral regurgitation and moderate tricuspid regurgitation. Patient was less active less problematic this time. He is not having any chest pain without any symptom of shortness of breath and still does not look in any fluid overload or worsening edema will continue current aggressive management. Not clear how much further improvement is currently with the current management sadly patient will end up having increased edema as an outpatient require more diuretics we will go back into the same vicious cycle He is not quite sure that patient might require any different help but with GFR of 14 the current circumstances patient most likely require starting dialysis for CKD stability of her medical condition as an outpatient without having to worry about rehospitalization of recurrent acute kidney injury the same way in the next few weeks. REVIEW OF SYSTEMS: CONSTITUTIONAL: Well-developed no acute respiratory distress. EYES: No icterus sclerae, no conjunctivitis. EARS, NOSE, MOUTH, THROAT, and FACE: No sore throat, lymphadenopathy, carotid bruits or deformity. RESPIRATORY: No SOB cough or wheezes. CARDIOVASCULAR: No CP, Palpitation, PND, Orthopnea, or angina. GASTROINTESTINAL: No Abd pain, Nausea or vomiting, no Diarrhea or constipation, No GI Bleed, no distention or masses. GENITOURINARY: Negative for Hematuria or UTI, no kidney stones. INTEGUMENT/BREAST: Negative for any muscular injury with mild osteoarthritis.. HEMATOLOGIC/LYMPHATIC: Negative for bleed or purpura. MUSCULOSKELTAL: Negative for Myalgia or arthralgia. NEURLOGICAL: No LOC, Sz or syncope, blurred vision dizziness or abnormality.. BEHAVIORAL/PSYCH: Negative. ENDOCRINE: Negative. PHYSICAL EXAMINATION: General Appearance: Alert, cooperative, no distress, appears stated age. Neck HEENT: Supple, no lymphadenopathy, no thyroid enlargement, no carotid bruits. Lungs: Clear to auscultation without crackles or wheezes no rhonchi, no deformity. Chest Wall: Chest wall normal expansion with deep inspiration no tenderness and no deformity was found on exam, no costochondral pain or discomfort. Heart: Regular rate and rhythm, S1, S2 normal, no murmur, rub or gallop. Back: Symmetric, no curvature, ROM normal, no CVA tenderness. Abdomen: Soft, non-tender, bowel sounds active all four quadrants, no masses, no organomegaly. Extremities: Extremities normal, atraumatic, no cyanosis or edema. Pulses: 2+ and symmetric. Skin: Skin color, texture, tugor normal, no rashes or lesions. Neurologic: Alert oriented x3 cranial nerves II through XII intact, no motor deficit, no abnormal balance or gait. ASSESSMENT AND PLAN: _Acute kidney injury with stage IV chronic kidney disease: This is mostly nephrosclerosis along with cardiorenal syndrome and probable chronic kidney disease overall, still only conservative management not for a lot of improvement currently with holding ARB or diuretics GFR still running around 13-14 only longevity of giving patient from being rehospitalized or having to worry about require for urgent medical help [id number] is probably by initiate dialysis with read early this is does not look is improving any further than expected in my fear patient is discharged she will be back probably within 10 days to 2 weeks for the same cycle with acute kidney injury and worsening kidney function might require more help. _Mild acute on chronic systolic congestive heart failure/cardiomyopathy with ejection fraction of 30-35 percentile. But make it worse that currently holding off on all of her essential cardiomyopathy/heart failure medication because of the acute kidney injury and worsening kidney function which eventually will make her anasarca edema and shortness of breath much worse. _A-fib with RVR: Pulse rates under control remain on Eliquis 2.5 mg twice a day and on Lopressor 25 mg twice a day which seems to be better controlled. _Type 2 diabetes she is off Farxiga still on diet along with Accu-Chek with sliding scales coverage and doing well so far. _Hypertension: Remain off losartan currently on Lopressor and amlodipine. _Anasarca and edema: Will require most likely to go back on diuretics before her discharge. _Mild neuropathy: On duloxetine. _Hypothyroidism: Remain on levothyroxine between 100 and 150 mcg daily. _Hyperlipidemia: Could not tolerate any type of statin with extremely major myalgia and documented worsening myositis: Patient was recommended Repatha but was not affordable at the time. Still can benefit from remain on Zetia 10 mg a day. _Chronic pain syndrome: Secondary to compression vertebrae in the thoracic spine has been on hydrocodone. _GI prophylaxis: Continue Pepcid 20 mg daily. _Bilateral leg cellulitis: Continue Rocephin for now along with topical Silvadene. Not any worse at this point will be switched to cephalexin orally for her discharge. CODE STATUS: DO NOT RESUSCITATE. Discharge planning: Still following nephrology recommendation whether wait-and- see or conservative management I personally believe initiate dialysis will be probably a better plan at this point even if patient remain on it for the next 2 to 3 months and improved eventually that she need to go off will be a lot safer than having to hold most of her essential medication and having to go back to being either fluid overload with worsening shortness of breath I will initiate diuretics as an outpatient and back into acute kidney injury on stage IV chronic kidney disease. Objective - Vital Signs Vital signs: Vital Signs Temp 97.5 F L 03/29/24 04:00 Pulse 113 H 03/29/24 04:00 Resp 14 03/29/24 04:00 BP 99/65 03/29/24 04:00 Pulse Ox 97 03/29/24 04:00 FiO2 Intake & Output 03/28/24 03/28/24 03/29/24 06:59 18:59 06:59 Intake Total 168 Output Total 650 Balance -650 168 Weight 91.4 kg 92.1 kg Intake: Oral 168 Output: Urine 650 Other: Voiding Method Toilet Toilet Toilet External Catheter External Catheter External Catheter # Voids 3 1 - Labs CBC & Chem 7: 03/29/24 09:38 03/29/24 09:38 Labs: Abnormal Lab Results - Last 24 Hours (Table) 03/28/24 03/28/24 03/28/24 Range/Units 07:52 07:52 20:15 RBC 3.20 L (3.80-5.40) m/uL Hgb 10.1 L (11.4-16.0) gm/dL Hct 33.1 L (34.0-46.0) % MCV 103.7 H (80.0-100.0) fL MCHC 30.6 L (31.0-37.0) g/dL Lymphocytes # 0.8 L (1.0-4.8) k/uL BUN 66 H (7-17) mg/dL Creatinine 3.18 H (0.52-1.04) mg/dL POC Glucose (mg/dL) 132 H (70-110) mg/dL
[2024-03-30 11:19] LABS: Glucose,Whole Blood 85 mg/dL (70-110)
[2024-03-30 11:36] LABS: African American GFR (CKD) 15 (>60 ml/min/1.73 sqM); Anion Gap 5 mmol/L; Blood Urea Nitrogen 58 mg/dL (7-17); Calcium 9.1 mg/dL (8.4-10.2); Carbon Dioxide 28 mmol/L (22-30); Chloride 106 mmol/L (98-107); Glucose 83 mg/dL (74-99); Non-African American GFR(CKD) 13 (>60 ml/min/1.73 sqM); Potassium 4.4 mmol/L (3.5-5.1); Sodium 139 mmol/L (137-145)
--- NOTE | 2024-03-30 12:35 | P.PN ---
Subjective HISTORY OF PRESENT ILLNESS: This is an 83-year-old female patient of Dr. Zoe Marshall with past medical history of diabetes mellitus type 2, hypertension, hypothyroidism, gastroesophageal reflux disease, paroxysmal atrial fibrillation, newly diagnosed cardiomyopathy. Patient gives history that she had recent blood work done as an outpatient and her marine engineering professor called her and told her to come into the hospital as her kidney function had worsened. Patient is not aware of the medications that she is currently taking as she is at assisted living and they do all of her medications. She states she has felt good and no symptoms. She does have some lower extremity edema bilaterally and she noted that there is been some weeping the last couple of days. Patient had a recent hospitalization in January at which time she had new onset of paroxysmal atrial fibrillation and was started on Eliquis at that time. Her home medication list is now stating that she is on Xarelto but patient does not recall any physician changing her medications. Her last follow-up in the office was with Dr. Zoe Marshall on 02/19/2024. She denies chest pain. No palpitations. Blood pressure 100/40, heart rate 82, pulse ox 97% on room air. Patient is seen today in the emergency center waiting for bed on the cardiac stepdown unit. EKG none, telemetry atrial fibrillation 77 bpm, patient presented with heart rate 130s Renal ultrasound: Left renal cyst. Laboratory studies: WBC 6, hemoglobin 9.8, platelet count 287. Sodium 134, potassium 4.7, BUN 75 creatinine 3.45, glucose 119. Phosphorus 5.1, magnesium 2.2. Troponin negative x 1. Urinalysis leukoesterase moderate WBC 7. Home cardiac medications: Amlodipine 5 mg daily, Jardiance 10 mg daily, Lasix 40 mg every 48 hours, losartan 100 mg daily, magnesium oxide 400 mg twice daily, Lopressor 25 mg twice daily, K. Dur 20 mill equivalents every 48 hours, Xarelto 50 mg with supper. Patient also on levothyroxine. Echocardiogram performed on 02/09/2024 reveals EF of 30 to 35%. RVSP 39, severe biatrial enlargement. Mild to moderate MR, mild aortic regurgitation, moderate tricuspid regurgitation. 03/24 Telemetry is atrial fibrillation and controlled rate. Blood pressure 97/62, heart rate is in the 80s, pulse ox 98% on room air, afebrile. Repeat blood work reveals hemoglobin of 9.5. BUN 72, creatinine 3.49. Patient states she feels well today. Edema in LE is improved. She is keeping legs elevated. Yesterday we ordered 2 doses of IV Lasix 40 mg and transition to oral Lasix 40 mg daily starting this morning. Chest x-ray reveals cardiomegaly with no evidence of focal pneumonia or overt failure. EKG atrial fibrillation with ventricular rate of 116 bpm. Bladder scan was 53 mL. 03/25 Patient remains in atrial fibrillation, heart rate 90, pulse ox 99% on room air, blood pressure 85/54. Patient is slightly more edema today. Patient was started on oral Bumex yesterday. Amlodipine, Jardiance and losartan remain on hold. Repeat blood work reveals hemoglobin 9.5, BUN 72 creatinine 3.49. 03/26/2024 Patient remains in rate controlled atrial fibrillation. Patient's blood pressure is however low with systolic blood pressure around 80s, diastolic around 50s. Patient's renal function is slightly trending up. We have held her Jardiance and losartan and continue to give her Bumex. Because of her up trending creatinine, will hold on further diuretics and will start a fluid challenge. March 27, 2024 BP 90/61, heart rate 80 bpm, rate controlled atrial fibrillation. For some reason patient has a low blood pressure in bilateral upper extremity. I repeated the manual blood pressure with similar readings. Patient is however asymptomatic. She denies any lightheadedness or dizziness. Her lower extremity swelling is much better. I held her diuretic yesterday and gave her gentle hydration. Her creatinine improved to 3.25. Prior to admission her creatinine was around 2.5. On admission she came to the hospital with 3.45. On admission she had bilateral lower extremity congestion with erythema. This has resolved. 03/28/2024 Patient examined this morning at the bedside. Patient currently denies chest pain or pressure. She denies shortness of breath. Telemetry reveals atrial fibrillation with heart rate in the low 100s. Patient's blood pressures remain soft in the 90s. Patient's creatinine 3.18 today. She remains off diuretics and off IV fluids. 03/29/2024 Patient examined this morning. Patient is sitting up in the chair. Patient currently denies chest pain or pressure. She denies shortness of breath. Telemetry reveals atrial fibrillation with a heart rate around 110. Patient's blood pressures have improved today. Creatinine stable at 2.98. 03/30/2024 Patient examined this morning. Patient is sitting up in the chair. She denies chest pain or pressure. She denies shortness of breath. Vital signs are stable. She remains in atrial fibrillation with controlled ventricular rate. PHYSICAL EXAM: VITAL SIGNS: Reviewed. GENERAL: Well-developed in no acute distress. NECK: Supple. No JVD or thyromegaly LUNGS: Respirations even and unlabored. Lungs essentially clear to auscultation bilaterally. HEART: Mildly tachycardic. Irregular rate and rhythm. S1 and S2 heard. EXTREMITIES: Normal range of motion. No clubbing or cyanosis. Peripheral pulses intact. Trace bilateral lower extremity edema ASSESSMENT: Paroxysmal atrial fibrillation with RVR, currently rate controlled afib Acute kidney injury on CKD Cardiomyopathy with a EF of 30 to 35%, ischemic versus nonischemic Mild acute on chronic systolic heart failure Diabetes mellitus type 2 Hypertension Hypothyroidism Gastroesophageal reflux disease Recent weight loss PLAN: Patient's losartan and Farxiga remain on hold secondary to BLAKE Continue to hold diuretics. No further IV fluids at this time Continue to monitor kidney function. Nephrology following. Continue telemetry monitoring Continue current dose of metoprolol Patient is currently stable from a cardiac perspective Discharge to ECF per primary medicine Further recommendations pending patient course Nurse practitioner note has been reviewed by physician. Signing provider agrees with the documented findings, assessment, and plan of care documented by VETERINARY PRACTITIONER as a scribe. Objective - Vital Signs Vital signs: Vital Signs Temp 98.2 F 03/30/24 11:52 Pulse 103 H 03/30/24 11:52 Resp 17 03/30/24 11:52 BP 105/56 03/30/24 11:52 Pulse Ox 98 03/30/24 11:52 FiO2 Intake & Output 03/29/24 03/30/24 03/30/24 18:59 06:59 18:59 Intake Total 360 180 Balance 360 180 Weight 90.4 kg Intake: Oral 360 180 Other: Voiding Method Toilet Toilet External Catheter External Catheter # Voids 2 1 1 # Bowel Movements 1 1 - Labs CBC & Chem 7: 03/29/24 09:38 03/30/24 10:38 Labs: Abnormal Lab Results - Last 24 Hours (Table) 03/30/24 Range/Units 10:38 BUN 58 H (7-17) mg/dL Creatinine 3.09 H (0.52-1.04) mg/dL
--- NOTE | 2024-03-30 13:12 | P.PN ---
Subjective patient is seen for follow-up for acute kidney injury and chronic kidney disease stage IV. status post IV fluids, currently off of fluids and diuretics. No significant complaints today. serum creatinine staying at 3 to 2.9mg/dL. Discussed with Dr. Espinoza and we will proceed with starting renal replacement therapy as patient has advanced chronic kidney disease along with CHF. Renal function has not improved any further. Patient remains with evidence of volume overload which will likely worsen post discharge. At this time patient is agreeable and we will proceed with vascular surgery consult. Objective - Vital Signs Vital signs: Vital Signs Temp 98.2 F 03/30/24 11:52 Pulse 103 H 03/30/24 11:52 Resp 17 03/30/24 11:52 BP 105/56 03/30/24 11:52 Pulse Ox 98 03/30/24 11:52 FiO2 Intake & Output 03/29/24 03/30/24 03/30/24 18:59 06:59 18:59 Intake Total 360 180 Balance 360 180 Weight 90.4 kg Intake: Oral 360 180 Other: Voiding Method Toilet Toilet External Catheter External Catheter # Voids 2 1 1 # Bowel Movements 1 1 - Exam patient is awake, comfortable, no acute distress. Examination of the heart S1 and S2 Examination of the lungs bilateral breath sounds are heard Abdomen is obese Examination of lower extremity shows edema 1+ bilaterally TIMBER REPAIRER exam grossly intact - Labs CBC & Chem 7: 03/29/24 09:38 03/30/24 10:38 Labs: Abnormal Lab Results - Last 24 Hours (Table) 03/30/24 Range/Units 10:38 BUN 58 H (7-17) mg/dL Creatinine 3.09 H (0.52-1.04) mg/dL Assessment and Plan Assessment: 1. Acute kidney injury secondary to ATN secondary to cardiorenal syndrome. status post diuresis. Diuretics currently on hold. Creatinine staying at about 3 mg/dL with no further improvement. UA fairly benign. Renal ultrasound from January 2024 showed no evidence of hydronephrosis. Discussed renal replacement therapy given the advanced chronic kidney disease with underlying CHF. Patient is agreeable. 2. Volume overload, improved since admission, but remains with volume overload 3. Acute on chronic systolic CHF ejection fraction of 30 to 35% with mild to moderate mitral regurgitation and moderate tricuspid regurgitation. 4. History of A-fib. 5. Diabetes mellitus. 6. Chronic kidney disease stage IV with creatinine in the range of 2.1-2.9 in January 2024. Etiology is nephrosclerosis and cardiorenal syndrome. Plan: Proceed with vascular surgery consult and plans to start renal replacement therapy to optimize volume status and possibly functional status. Patient is also advised that given her advanced cardiomyopathy she may not tolerate dialysis well. Patient increase to proceed with trial of dialysis.
[2024-03-30 14:01] VITALS: BMI 33.1
[2024-03-30 16:15] LABS: Glucose,Whole Blood 100 mg/dL (70-110)
[2024-03-30 19:54] LABS: Glucose,Whole Blood 133 mg/dL (70-110)
--- NOTE | 2024-03-31 05:52 | P.PN ---
Subjective Progress Note Date: 03/30/24 HISTORY OF PRESENT ILLNESS: 83-year-old One of my office patients along: I was hospitalized on 03/23/2024 for acute kidney injury and acute tubular necrosis with GFR quite bit low etiology was not a clear but similar to her last admission with weight loss, not eating and drinking fluid, hypertension which created worsening kidney function was watched quite bit carefully for the last few weeks. Patient is known to have type 2 diabetes, hypertension, hypothyroidism, severe GERD, paroxysmal A-fib with new diagnosis of cardiomyopathy has been seeing cardiology as an outpatient and required with change in medication recently. Last few days continue to have creatinine at 3.25 with GFR is quite bit low consistent with stage IV chronic kidney disease. Does not require any hemodialysis yet, still seen nephrology and cardiology. Remain on IV fluid diuretics has been on hold since admission. Farxiga and Cozaar were held nephrology will think about adding inotropic agent currently to watch kidney function closely. Cardiology yesterday seen patient with blood pressure still slightly below with pulse rates controlled in the 80s continue to have low blood pressure which is not symptomatic. Recommending to do gentle hydration to improve the kidney function she had again cardiomyopathy trying to keep her on better medication for cardiomyopathy along with diuretics to keep her from having any fluid overload, worsening shortness of breath and symptoms of heart failure. 03/28/2024: Hemoglobin is down to 10.1 with stable creatinine remained at 3.18 with GFR at 13. Patient still seen nephrology does not require any hemodialysis she is not making much urine. Weight is coming down total of 6 kg since admission on the second. Shortness of breath continue to improve significantly, her anasarca and edema has been slightly better. 03/29/2024: Creatinine still running at 2.9 patient still to continue on IV fluid holding diuretics holding Cozaar and Farxiga per nephrology consultation recommendation and still does not require any hemodialysis. Still making some urine output claim of kidney function mostly on nephrosclerosis and cardiorenal syndrome. Patient ejection fraction is only 30-35 percentile with moderate mitral regurgitation and moderate tricuspid regurgitation. Patient was less active less problematic this time. He is not having any chest pain without any symptom of shortness of breath and still does not look in any fluid overload or worsening edema will continue current aggressive management. Not clear how much further improvement is currently with the current management sadly patient will end up having increased edema as an outpatient require more diuretics we will go back into the same vicious cycle He is not quite sure that patient might require any different help but with GFR of 14 the current circumstances patient most likely require starting dialysis for CKD stability of her medical condition as an outpatient without having to worry about rehospitalization of recurrent acute kidney injury the same way in the next few weeks. 03/30/2024: Patient kidney function is not improving to any degree to consider going hemodialysis GFR running between 10 and 15 early in the day I addressed with the patient this in very simple language and obviously patient per choice said we will want to be kept alive and she did not mind trying dialysis. Contacted Dr. Goodwin and put this action and plan and by the time Dr. Goodwin came in to see the patient had apparently a conference call with the daughter out of town and one of the daughter was seen the patient. After explaining to them what is involved with hemodialysis and expectation from it family and patient back off at this point and decided that is not the expectation and does not want at this point move on with hemodialysis. It came back late in the day and spoke with the patient initially in detail and then spoke with the daughter Amrita who is the guardian and both at this point are in agreement to talk about it but does not look like they are moving on for hemodialysis regardless with the result might be. And furthermore I told the patient and family will look into probably palliative care and comfort care afterward just continue conservative management for the kidney and if by any chance after discharge going back to the assisted living place she declined more and decided to pursue dialysis for that point we can always change her mind. Also made it clear for the patient even not doing dialysis and the kidney function is back this is still micro both way she might improve slightly and continue her current living for a bit longer however this might decline a lot faster than expected patient might end up going into end-stage renal failure might from it in the next few weeks. Obviously the patient and the family understand this definitely and that is the choice they want to do. Then we will wrap up her discharge to be done tomorrow and to follow-up her lab every 1 to 2 weeks and again discussion if change her mind for what to do as an outpatient and can probably go back to see nephrology as an outpatient in the next 2 to 4 weeks. REVIEW OF SYSTEMS: CONSTITUTIONAL: Well-developed no acute respiratory distress. EYES: No icterus sclerae, no conjunctivitis. EARS, NOSE, MOUTH, THROAT, and FACE: No sore throat, lymphadenopathy, carotid bruits or deformity. RESPIRATORY: No SOB cough or wheezes. CARDIOVASCULAR: No CP, Palpitation, PND, Orthopnea, or angina. GASTROINTESTINAL: No Abd pain, Nausea or vomiting, no Diarrhea or constipation, No GI Bleed, no distention or masses. GENITOURINARY: Negative for Hematuria or UTI, no kidney stones. INTEGUMENT/BREAST: Negative for any muscular injury with mild osteoarthritis.. HEMATOLOGIC/LYMPHATIC: Negative for bleed or purpura. MUSCULOSKELTAL: Negative for Myalgia or arthralgia. NEURLOGICAL: No LOC, Sz or syncope, blurred vision dizziness or abnormality.. BEHAVIORAL/PSYCH: Negative. ENDOCRINE: Negative. PHYSICAL EXAMINATION: General Appearance: Alert, cooperative, no distress, appears stated age. Neck HEENT: Supple, no lymphadenopathy, no thyroid enlargement, no carotid bruits. Lungs: Clear to auscultation without crackles or wheezes no rhonchi, no deformity. Chest Wall: Chest wall normal expansion with deep inspiration no tenderness and no deformity was found on exam, no costochondral pain or discomfort. Heart: Regular rate and rhythm, S1, S2 normal, no murmur, rub or gallop. Back: Symmetric, no curvature, ROM normal, no CVA tenderness. Abdomen: Soft, non-tender, bowel sounds active all four quadrants, no masses, no organomegaly. Extremities: Extremities normal, atraumatic, no cyanosis or edema. Pulses: 2+ and symmetric. Skin: Skin color, texture, tugor normal, no rashes or lesions. Neurologic: Alert oriented x3 cranial nerves II through XII intact, no motor deficit, no abnormal balance or gait. ASSESSMENT AND PLAN: _Acute kidney injury with stage IV chronic kidney disease: Again after stressing the idea of should initiate hemodialysis patient and family back off and decide not to do dialysis at this point despite the fact that going if this decline this might create higher chance for mortality over the next few weeks. _Mild acute on chronic systolic congestive heart failure/cardiomyopathy with ejection fraction of 30-35 percentile. But make it worse that currently holding off on all of her essential cardiomyopathy/heart failure medication because of the acute kidney injury and worsening kidney function which eventually will make her anasarca edema and shortness of breath much worse. Of course the dilemma with the kidney function being bad making the choice of medication is not easy because most of management for cardiomyopathy will cause probably the kidney function to decline more. _A-fib with RVR: Pulse rates under control remain on Eliquis 2.5 mg twice a day and on Lopressor 25 mg twice a day which seems to be better controlled. _Type 2 diabetes she is off Farxiga still on diet along with Accu-Chek with sliding scales coverage and doing well so far. Might initiate Farxiga upon discharge. _Hypertension: Remain off losartan currently on Lopressor and amlodipine. _Anasarca and edema: Will require most likely to go back on diuretics before her discharge. As of today no diuresis yet but if become worse and required to go back on Bumex 1 mg a day consider this as a choice in the next 1 to 2 weeks. _Mild neuropathy: On duloxetine. Seems to do well with it. _Hypothyroidism: Remain on levothyroxine between 100 and 150 mcg daily. _Hyperlipidemia: Could not tolerate any type of statin with extremely major myalgia and documented worsening myositis: Patient was recommended Repatha but was not affordable at the time. Still can benefit from remain on Zetia 10 mg a day. _Chronic pain syndrome: Secondary to compression vertebrae in the thoracic spine has been on hydrocodone. _GI prophylaxis: Continue Pepcid 20 mg daily. _Bilateral leg cellulitis: Continue Rocephin for now along with topical Silvadene. Not any worse at this point will be switched to cephalexin orally for her discharge. CODE STATUS: DO NOT RESUSCITATE. Discharge planning: With no dialysis or all set for probably discharge for tomorrow morning. Objective - Vital Signs Vital signs: Vital Signs Temp 98 F 03/30/24 04:00 Pulse 109 H 03/30/24 04:00 Resp 16 03/30/24 04:00 BP 96/67 03/30/24 04:00 Pulse Ox 97 03/30/24 04:00 FiO2 Intake & Output 03/29/24 03/29/24 03/30/24 06:59 18:59 06:59 Intake Total 360 Balance 360 Weight 92.1 kg 90.4 kg Intake: Oral 360 Other: Voiding Method Toilet Toilet Toilet External Catheter External Catheter External Catheter # Voids 1 2 1 # Bowel Movements 1 - Labs CBC & Chem 7: 03/29/24 09:38 03/30/24 10:38 Labs: Abnormal Lab Results - Last 24 Hours (Table) 03/29/24 03/29/24 Range/Units 09:38 09:38 RBC 3.13 L (3.80-5.40) m/uL Hgb 10.2 L (11.4-16.0) gm/dL Hct 32.0 L (34.0-46.0) % MCV 102.0 H (80.0-100.0) fL Lymphocytes # 0.6 L (1.0-4.8) k/uL BUN 61 H (7-17) mg/dL Creatinine 2.98 H (0.52-1.04) mg/dL Total Protein 5.8 L (6.3-8.2) g/dL Albumin 3.1 L (3.5-5.0) g/dL
[2024-03-31 05:56] LABS: Glucose,Whole Blood 85 mg/dL (70-110)
[2024-03-31 09:17] VITALS: RESP 16; TEMP 97.3
[2024-03-31 11:47] LABS: Glucose,Whole Blood 89 mg/dL (70-110)
[2024-03-31] MEDS: MIDODRINE 5 MG TAB PO SCH (11:47)
[2024-03-31 12:06] VITALS: PULSE 89
--- NOTE | 2024-03-31 12:32 | P.PN ---
Subjective patient is seen for follow-up for acute kidney injury and chronic kidney disease stage IV. status post IV fluids, currently off of fluids and diuretics. No significant complaints today. serum creatinine staying at 3 to 2.9mg/dL. patient and family decided to hold off on renal replacement therapy for now. Objective - Vital Signs Vital signs: Vital Signs Temp 97.3 F L 03/31/24 09:06 Pulse 89 03/31/24 11:43 Resp 16 03/31/24 11:43 BP 96/66 03/31/24 11:43 Pulse Ox 100 03/31/24 11:43 FiO2 Intake & Output 03/30/24 03/31/24 03/31/24 18:59 06:59 18:59 Intake Total 180 140 120 Balance 180 140 120 Weight 90.4 kg 90.7 kg Intake: IV 20 Invasive Line 2 20 Oral 180 120 120 Other: Voiding Method Toilet Toilet Toilet External Catheter External Catheter # Voids 1 2 1 # Bowel Movements 1 1 - Exam patient is awake, comfortable, no acute distress. Examination of the heart S1 and S2 Examination of the lungs bilateral breath sounds are heard Abdomen is obese Examination of lower extremity shows edema 1+ bilaterally [employer] exam grossly intact - Labs CBC & Chem 7: 03/29/24 09:38 03/30/24 10:38 Labs: Abnormal Lab Results - Last 24 Hours (Table) 03/30/24 Range/Units 19:52 POC Glucose (mg/dL) 133 H (70-110) mg/dL Assessment and Plan Assessment: 1. Acute kidney injury secondary to ATN secondary to cardiorenal syndrome. status post diuresis. Diuretics currently on hold. Creatinine staying at about 3 mg/dL with no further improvement. UA fairly benign. Renal ultrasound from January 2024 showed no evidence of hydronephrosis. Discussed renal replacement therapy given the advanced chronic kidney disease with underlying CHF. Patient and family have decided to hold off for now.. 2. Volume overload, improved since admission, but remains with volume overload 3. Acute on chronic systolic CHF ejection fraction of 30 to 35% with mild to moderate mitral regurgitation and moderate tricuspid regurgitation. 4. History of A-fib. 5. Diabetes mellitus. 6. Chronic kidney disease stage IV with creatinine in the range of 2.1-2.9 in January 2024. Etiology is nephrosclerosis and cardiorenal syndrome. Plan: follow-up as outpatient for monitoring of renal function and readdress renal replacement therapy as outpatient
--- NOTE | 2024-03-31 12:42 | P.DS ---
Providers Date of admission: 03/23/24 12:47 Attending physician: Adriano Espinoza Consults: 03/22/24 22:23 Consult Physician Urgent Consulting Provider: [facility] Consult Reason/Comments: Afib w/ RVR. BLAKE EF 30-35% Do you want consulting provider notified?: Yes Consult Physician Urgent Consulting Provider: Torrey Curtis Consult Reason/Comments: BLAKE Do you want consulting provider notified?: Yes Primary care physician: [facility] Course: HISTORY OF PRESENT ILLNESS: 83-year-old One of my office patients along: I was hospitalized on 03/23/2024 for acute kidney injury and acute tubular necrosis with GFR quite bit low etiology was not a clear but similar to her last admission with weight loss, not eating and drinking fluid, hypertension which created worsening kidney function was watched quite bit carefully for the last few weeks. Patient is known to have type 2 diabetes, hypertension, hypothyroidism, severe GERD, paroxysmal A-fib with new diagnosis of cardiomyopathy has been seeing cardiology as an outpatient and required with change in medication recently. Last few days continue to have creatinine at 3.25 with GFR is quite bit low co nsistent with stage IV chronic kidney disease. Does not require any hemodialysis yet, still seen nephrology and cardiology. Remain on IV fluid diuretics has been on hold since admission. Farxiga and Cozaar were held nephrology will think about adding inotropic agent currently to watch kidney function closely. Cardiology yesterday seen patient with blood pressure still slightly below with pulse rates controlled in the 80s continue to have low blood pressure which is not symptomatic. Recommending to do gentle hydration to improve the kidney function she had again cardiomyopathy trying to keep her on better medication for cardiomyopathy along with diuretics to keep her from having any fluid overload, worsening shortness of breath and symptoms of heart failure. 03/28/2024: Hemoglobin is down to 10.1 with stable creatinine remained at 3.18 with GFR at 13. Patient still seen nephrology does not require any hemodialysis she is not making much urine. Weight is coming down total of 6 kg since admission on the second. Shortness of breath continue to improve significantly, her anasarca and edema has been slightly better. 03/29/2024: Creatinine still running at 2.9 patient still to continue on IV fluid holding diuretics holding Cozaar and Farxiga per nephrology consultation recommendation and still does not require any hemodialysis. Still making some urine output claim of kidney function mostly on nephrosclerosis and cardiorenal syndrome. Patient ejection fraction is only 30-35 percentile with moderate mitral regurgitation and moderate tricuspid regurgitation. Patient was less active less problematic this time. He is not having any chest pain without any symptom of shortness of breath and still does not look in any fluid overload or worsening edema will continue current aggressive management. Not clear how much further improvement is currently with the current management sadly patient will end up having increased edema as an outpatient require more d iuretics we will go back into the same vicious cycle He is not quite sure that patient might require any different help but with GFR of 14 the current circumstances patient most likely require starting dialysis for CKD stability of her medical condition as an outpatient without having to worry about rehospitalization of recurrent acute kidney injury the same way in the next few weeks. 03/30/2024: Patient kidney function is not improving to any degree to consider going hemodialysis GFR running between 10 and 15 early in the day I addressed with the patient this in very simple language and obviously patient per choice said we will want to be kept alive and she did not mind trying dialysis. Contacted Dr. Goodwin and put this action and plan and by the time Dr. Goodwin came in to see the patient had apparently a conference call with the daughter out of town and one of the daughter was seen the patient. After explaining to them what is involved with hemodialysis and expectation from it family and patient back off at this point and decided that is not the expectation and does not want at this point move on with hemodialysis. It came back late in the day and spoke with the patient initially in detail and then spoke with the daughter Amrita who is the guardian and both at this point are in agreement to talk about it but does not look like they are moving on for hemodialysis regardless with the result might be. And furthermore I told the patient and family will look into probably palliative care and comfort care afterward just continue conservative management for the kidney and if by any chance after discharge going back to the assisted living place she declined more and decided to pursue dialysis for that point we can always change her mind. Also made it clear for the patient even not doing dialysis and the kidney function is back this is still micro both way she might improve slightly and continue her current living for a bit longer however this might decline a lot faster than expected patient might end up going into end-stage renal failure might from it in the next few weeks. Obviously the patient and the family understand this definitely and that is the choice they want to do. Then we will wrap up her discharge to be done tomorrow and to follow-up her lab every 1 to 2 weeks and again discussion if change her mind for what to do as an outpatient and can probably go back to see nephrology as an outpatient in the next 2 to 4 weeks. 03/31/2024: Patient was seen extended talk about the plan again patient and family agree not to do any dialysis at this point but to continue conservative management without dialysis her creatinine did not improve much from last couple days GFR still running around 13. Also her systolic ejection fraction on echocardiogram dropped down during this hospitalization to 30-35 percentile only with moderate mitral regurgitation and moderate tricuspid regurgitation also had significant A-fib was not well-controlled specially with the blood pressure being low had to do amiodarone 200 mg 3 times a day for period of time and will be changing this to once a day only from [place]. Cardiology aware about the blood pressure being slightly below asking to use midodrine to have a blood pressure to stay little bit elevated so we can substitute beta-rach to help her A-fib by using metoprolol as an addition. Patient will be discharged today to her assisted living place and will follow in the office followed by nephrology as well in the next few days amiodarone will be down to 200 mg once a day we can hold on losartan and amlodipine but if she can tolerate metoprolol which will be resumed soon as possible. REVIEW OF SYSTEMS: CONSTITUTIONAL: Well-developed no acute respiratory distress. EYES: No icterus sclerae, no conjunctivitis. EARS, NOSE, MOUTH, THROAT, and FACE: No sore throat, lymphadenopathy, carotid bruits or deformity. RESPIRATORY: No SOB cough or wheezes. CARDIOVASCULAR: No CP, Palpitation, PND, Orthopnea, or angina. GASTROINTESTINAL: No Abd pain, Nausea or vomiting, no Diarrhea or constipation, No GI Bleed, no distention or masses. GENITOURINARY: Negative for Hematuria or UTI, no kidney stones. INTEGUMENT/BREAST: Negative for any muscular injury with mild osteoarthritis.. HEMATOLOGIC/LYMPHATIC: Negative for bleed or purpura. MUSCULOSKELTAL: Negative for Myalgia or arthralgia. NEURLOGICAL: No LOC, Sz or syncope, blurred vision dizziness or abnormality.. BEHAVIORAL/PSYCH: Negative. ENDOCRINE: Negative. PHYSICAL EXAMINATION: General Appearance: Alert, cooperative, no distress, appears stated age. Neck HEENT: Supple, no lymphadenopathy, no thyroid enlargement, no carotid bruits. Lungs: Clear to auscultation without crackles or wheezes no rhonchi, no deformity. Chest Wall: Chest wall normal expansion with deep inspiration no tenderness and no deformity was found on exam, no costochondral pain or discomfort. Heart: Regular rate and rhythm, S1, S2 normal, no murmur, rub or gallop. Back: Symmetric, no curvature, ROM normal, no CVA tenderness. Abdomen: Soft, non-tender, bowel sounds active all four quadrants, no masses, no organomegaly. Extremities: Extremities normal, atraumatic, no cyanosis or edema. Pulses: 2+ and symmetric. Skin: Skin color, texture, tugor normal, no rashes or lesions. Neurologic: Alert oriented x3 cranial nerves II through XII intact, no motor deficit, no abnormal balance or gait. ASSESSMENT AND PLAN: _Acute kidney injury with stage IV chronic kidney disease: Again after stressing the idea of should initiate hemodialysis patient and family back off and decide not to do dialysis at this point despite the fact that going if this decline this might create higher chance for mortality over the next few weeks. _Mild acute on chronic systolic congestive heart failure/cardiomyopathy with ejection fraction of 30-35 percentile. But make it worse that currently holding off on all of her essential cardiomyopathy/heart failure medication because of the acute kidney injury and worsening kidney function which eventually will make her anasarca edema and shortness of breath much worse. Of course the dilemma with the kidney function being bad making the choice of medication is not easy because most of management for cardiomyopathy will cause probably the kidney function to decline more. _A-fib with RVR: Pulse rates under control remain on Eliquis 2.5 mg twice a day and on Lopressor 25 mg twice a day still on amiodarone 200 mg 3 times a day which will be switched to once a day start today. _Type 2 diabetes she is off Farxiga still on diet along with Accu-Chek with sliding scales coverage and doing well so far. Might initiate Farxiga upon discharge. _Hypertension: Remain off losartan currently on Lopressor and amlodipine. _Anasarca and edema: Will require most likely to go back on diuretics before her discharge. As of today no diuresis yet but if become worse and required to go back on Bumex 1 mg a day consider this as a choice in the next 1 to 2 weeks. _Mild neuropathy: On duloxetine. Seems to do well with it. _Hypothyroidism: Remain on levothyroxine between 100 and 150 mcg daily. _Hyperlipidemia: Could not tolerate any type of statin with extremely major myalgia and documented worsening myositis: Patient was recommended Repatha but was not affordable at the time. Still can benefit from remain on Zetia 10 mg a day. _Chronic pain syndrome: Secondary to compression vertebrae in the thoracic spine has been on hydrocodone. _GI prophylaxis: Continue Pepcid 20 mg daily. _Bilateral leg cellulitis: Continue Rocephin for now along with topical Silvadene. Not any worse at this point will be switched to cephalexin orally f or her discharge. CODE STATUS: DO NOT RESUSCITATE. Discharge planning: Patient be discharged to her assisted living will follow-up as an outpatient and follow-up her lab and if she change her mind with her family we could always change the plan to initiate dialysis as an outpatient at some point. Hospital course: She is admitted to the hospital on 03/23/2024 as a response to labs that she did which showed much worsening kidney function with creatinine is up to 3.7 found to be in acute kidney failure secondary to acute tubular necrosis with significantly low GFR. Patient was seen and evaluated found to be in A-fib with RVR as well and found to have significantly low blood pressure could not use her losartan amlodipine and metoprolol at the time. Patient was seen nephrology on more regular basis and her kidney function did not improve much the following few days her creatinine dropped down to 2.9 GFR still running around 13 only. When discussing the family and patient about the fact of initiating hemodialysis at this time they both decline thinking will be too much to do 3 times a week 3 hours at the time patient will hold off on dialysis at this point. Kidney function is not getting improved beyond this point she is still in stage IV kidney disease. Also patient is having A-fib with RVR did not get control easy had to use amiodarone 200 mg 3 times a day while the blood pressure was low could not use metoprolol at the time and seen the pulse rate to be much better on amiodarone. With the kidney function the weight is after loading patient with amiodarone we will back off to 200 mg daily only. Patient did not have any further complication beside the acute on chronic congestive heart failure with cardiomyopathy with significant decline in heart function with ejection fraction has down to 30-35 percentile only was seen and evaluated by cardiology no change in medication was made if A-fib improved hopefully heart function will improve at some point. Patient is known to have chronic anasarca and chronic edema has been on diuretics for long time holding off diuretics at this point specially with her kidney failure had helped to some degree but she might go back to have significant edema in the next few weeks require using diuretics on this treatment at this point even if he gets to the point having to use diuretics made the kidney function slightly bit worse we have to keep patient comfortable even if the kidney function become much worsening. Patient is ready to be discharged to her assisted living place today on 03/31/2024. Time spent on discharging patient was over 35 minutes. Patient Condition at Discharge: Fair Plan - Discharge Summary New Discharge Prescriptions: New Amiodarone [Cordarone] 200 mg PO DAILY #30 tab Midodrine [ProAmatine] 5 mg PO TID #90 tablet Continue HYDROcodone/APAP 5-325MG [Haddock 5-325] 1 tab PO Q4HR PRN 3 Days #15 tab PRN Reason: Pain Magnesium Hydroxide [Milk of Magnesia] 2,400 mg PO DAILY PRN PRN Reason: Constipation Cetirizine HCl [Zyrtec] 10 mg PO DAILY PRN PRN Reason: Itching Menthol [Biofreeze] 1 applic TOPICAL QID PRN PRN Reason: Pain Timolol 0.5% Ophth Soln [Timoptic 0.5% Ophth Soln] 1 drop BOTH EYES BID@ Levothyroxine Sodium [Synthroid] 150 mcg PO SUTH@07 Metoprolol Tartrate [Lopressor] 25 mg PO BID@ Magnesium Oxide [Mag-Ox] 400 mg PO BID@799,1999 traMADol HCL 50 mg PO Q8H PRN PRN Reason: Pain Ondansetron [Zofran] 4 mg PO TID PRN PRN Reason: Nausea And Vomiting guaiFENesin [guaiFENesin Oral Solution] 100 mg PO Q4H PRN PRN Reason: Cough Calcium Carbonate [Tums] 1,000 mg PO Q2H PRN PRN Reason: Gi Upset Acetaminophen [Tylenol Arthritis] 650 mg PO TID PRN PRN Reason: Pain Levothyroxine Sodium [Synthroid] 100 mcg PO MOTUWEFRSA@0700 Docusate Sodium [Dok] 100 mg PO DAILY@0900 DULoxetine HCL [Cymbalta] 20 mg PO DAILY@0900 Bismuth Subsalicylate [Kaopectate] 262 mg PO Q4H PRN PRN Reason: Gi Upset Sodium Bicarbonate 325 mg PO DAILY@0800 Rivaroxaban [Xarelto] 15 mg PO W/SUPPER@1700 Empagliflozin [Jardiance] 10 mg PO AC-BRKFST@0700 Discontinued Potassium Chloride ER [K-Dur 20] 20 meq PO Q48H amLODIPine [Norvasc] 5 mg PO DAILY@0900 Furosemide [Lasix] 40 mg PO Q48H Acetaminophen Tab [Tylenol] 650 mg PO Q4H PRN PRN Reason: Fever And/ Or Pain Ibuprofen [Motrin Ib] 400 mg PO Q6H PRN PRN Reason: Pain Losartan Potassium [Cozaar] 100 mg PO DAILY@0900 Discharge Medication List HYDROcodone/APAP 5-325MG [Haddock 5-325] 1 tab PO Q4HR PRN 3 Days #15 tab 11/30/23 [Rx] Acetaminophen [Tylenol Arthritis] 650 mg PO TID PRN 02/09/24 [History] Calcium Carbonate [Tums] 1,000 mg PO Q2H PRN 02/09/24 [History] Cetirizine HCl [Zyrtec] 10 mg PO DAILY PRN 02/09/24 [History] DULoxetine HCL [Cymbalta] 20 mg PO DAILY@0900 02/09/24 [History] Docusate Sodium [Dok] 100 mg PO DAILY@0900 02/09/24 [History] Levothyroxine Sodium [Synthroid] 100 mcg PO MOTUWEFRSA@0700 02/09/24 [History] Levothyroxine Sodium [Synthroid] 150 mcg PO SUTH@0702/09/24 [History] Magnesium Hydroxide [Milk of Magnesia] 2,400 mg PO DAILY PRN 02/09/24 [History] Menthol [Biofreeze] 1 applic TOPICAL QID PRN 02/09/24 [History] Ondansetron [Zofran] 4 mg PO TID PRN 02/09/24 [History] Timolol 0.5% Ophth Soln [Timoptic 0.5% Ophth Soln] 1 drop BOTH EYES BID@799,199902/09/24 [History] guaiFENesin [guaiFENesin Oral Solution] 100 mg PO Q4H PRN 02/09/24 [History] traMADol HCL 50 mg PO Q8H PRN 02/09/24 [History] Bismuth Subsalicylate [Kaopectate] 262 mg PO Q4H PRN 03/22/24 [History] Empagliflozin [Jardiance] 10 mg PO AC-BRKFST@69903/22/24 [History] Magnesium Oxide [Mag-Ox] 400 mg PO BID@08,199903/22/24 [History] Metoprolol Tartrate [Lopressor] 25 mg PO BID@08,199903/22/24 [History] Rivaroxaban [Xarelto] 15 mg PO W/SUPPER@1700 03/22/24 [History] Sodium Bicarbonate 325 mg PO DAILY@0803/22/24 [History] Amiodarone [Cordarone] 200 mg PO DAILY #30 tab 03/31/24 [Rx] Midodrine [ProAmatine] 5 mg PO TID #90 tablet 03/31/24 [Rx] Follow up Appointment(s)/Referral(s): Aurora Goodwin MD [STAFF PHYSICIAN] - 1 Week (Office is closed. Please call to schedule appointment) Adriano Espinoza MD [Primary Care Provider] - 1-2 days (Office is closed. Please call to schedule appointment) Patrick Marshall MD [STAFF PHYSICIAN] - 04/13/24 3:45 pm (Thursday) Ambulatory/Diagnostic Orders: Comprehensive Metabolic Panel [LAB.AMB] Location: None Selected TSH, 3rd Generation [LAB.AMB] Location: None Selected Patient Instructions/Handouts: A-fib (Atrial Fibrillation) (DC), Acute Kidney Injury (DC) Discharge Disposition: HOME WITH HOME HEALTH SERVICES
--- NOTE | 2024-03-31 13:15 | P.PN ---
Subjective HISTORY OF PRESENT ILLNESS: This is an 83-year-old female patient of Dr. Zoe Marshall with past medical history of diabetes mellitus type 2, hypertension, hypothyroidism, gastroesophageal reflux disease, paroxysmal atrial fibrillation, newly diagnosed cardiomyopathy. Patient gives history that she had recent blood work done as an outpatient and her ironer hand called her and told her to come into the hospital as her kidney function had worsened. Patient is not aware of the medications that she is currently taking as she is at assisted living and they do all of her medications. She states she has felt good and no symptoms. She does have some lower extremity edema bilaterally and she noted that there is been some weeping the last couple of days. Patient had a recent hospitalization in January at which time she had new onset of paroxysmal atrial fibrillation and was started on Eliquis at that time. Her home medication list is now stating that she is on Xarelto but patient does not recall any physician changing her medications. Her last follow-up in the office was with Dr. Zoe Marshall on 02/19/2024. She denies chest pain. No palpitations. Blood pressure 100/40, heart rate 82, pulse ox 97% on room air. Patient is seen today in the emergency center waiting for bed on the cardiac stepdown unit. EKG none, telemetry atrial fibrillation 77 bpm, patient presented with heart rate 130s Renal ultrasound: Left renal cyst. Laboratory studies: WBC 6, hemoglobin 9.8, platelet count 287. Sodium 134, potassium 4.7, BUN 75 creatinine 3.45, glucose 119. Phosphorus 5.1, magnesium 2.2. Troponin negative x 1. Urinalysis leukoesterase moderate WBC 7. Home cardiac medications: Amlodipine 5 mg daily, Jardiance 10 mg daily, Lasix 40 mg every 48 hours, losartan 100 mg daily, magnesium oxide 400 mg twice daily, Lopressor 25 mg twice daily, K. Dur 20 mill equivalents every 48 hours, Xarelto 50 mg with supper. Patient also on levothyroxine. Echocardiogram performed on 02/09/2024 reveals EF of 30 to 35%. RVSP 39, severe biatrial enlargement. Mild to moderate MR, mild aortic regurgitation, moderate tricuspid regurgitation. 03/24 Telemetry is atrial fibrillation and controlled rate. Blood pressure 97/62, heart rate is in the 80s, pulse ox 98% on room air, afebrile. Repeat blood work reveals hemoglobin of 9.5. BUN 72, creatinine 3.49. Patient states she feels well today. Edema in LE is improved. She is keeping legs elevated. Yesterday we ordered 2 doses of IV Lasix 40 mg and transition to oral Lasix 40 mg daily starting this morning. Chest x-ray reveals cardiomegaly with no evidence of focal pneumonia or overt failure. EKG atrial fibrillation with ventricular rate of 116 bpm. Bladder scan was 53 mL. 03/25 Patient remains in atrial fibrillation, heart rate 90, pulse ox 99% on room air, blood pressure 85/54. Patient is slightly more edema today. Patient was started on oral Bumex yesterday. Amlodipine, Jardiance and losartan remain on hold. Repeat blood work reveals hemoglobin 9.5, BUN 72 creatinine 3.49. 03/26/2024 Patient remains in rate controlled atrial fibrillation. Patient's blood pressure is however low with systolic blood pressure around 80s, diastolic around 50s. Patient's renal function is slightly trending up. We have held her Jardiance and losartan and continue to give her Bumex. Because of her up trending creatinine, will hold on further diuretics and will start a fluid challenge. March 27, 2024 BP 90/61, heart rate 80 bpm, rate controlled atrial fibrillation. For some reason patient has a low blood pressure in bilateral upper extremity. I repeated the manual blood pressure with similar readings. Patient is however asymptomatic. She denies any lightheadedness or dizziness. Her lower extremity swelling is much better. I held her diuretic yesterday and gave her gentle hydration. Her creatinine improved to 3.25. Prior to admission her creatinine was around 2.5. On admission she came to the hospital with 3.45. On admission she had bilateral lower extremity congestion with erythema. This has resolved. 03/28/2024 Patient examined this morning at the bedside. Patient currently denies chest pain or pressure. She denies shortness of breath. Telemetry reveals atrial fibrillation with heart rate in the low 100s. Patient's blood pressures remain soft in the 90s. Patient's creatinine 3.18 today. She remains off diuretics and off IV fluids. 03/29/2024 Patient examined this morning. Patient is sitting up in the chair. Patient currently denies chest pain or pressure. She denies shortness of breath. Telemetry reveals atrial fibrillation with a heart rate around 110. Patient's blood pressures have improved today. Creatinine stable at 2.98. 03/30/2024 Patient examined this morning. Patient is sitting up in the chair. She denies chest pain or pressure. She denies shortness of breath. Vital signs are stable. She remains in atrial fibrillation with controlled ventricular rate. 03/31/2024 Patient examined this morning the bedside. Patient currently denies chest pain or pressure. She denies shortness of breath. Vital signs are stable. PHYSICAL EXAM: VITAL SIGNS: Reviewed. GENERAL: Well-developed in no acute distress. NECK: Supple. No JVD or thyromegaly LUNGS: Respirations even and unlabored. Lungs essentially clear to auscultation bilaterally. HEART: Irregular rate and rhythm. S1 and S2 heard. EXTREMITIES: Normal range of motion. No clubbing or cyanosis. Peripheral pulses intact. Trace bilateral lower extremity edema ASSESSMENT: Paroxysmal atrial fibrillation with RVR, currently rate controlled afib Acute kidney injury on CKD Cardiomyopathy with a EF of 30 to 35%, ischemic versus nonischemic Mild acute on chronic systolic heart failure Diabetes mellitus type 2 Hypertension Hypothyroidism Gastroesophageal reflux disease Recent weight loss PLAN: Add midodrine 5 mg 3 times a day Amiodarone decreased to 200 mg per primary medicine Patient is currently stable from a cardiac perspective Discharge to [facility]CF per primary medicine Nurse practitioner note has been reviewed by physician. Signing provider agrees with the documented findings, assessment, and plan of care documented by [employer] ADMINISTRATOR as a scribe. Objective - Vital Signs Vital signs: Vital Signs Temp 97.3 F L 03/31/24 09:06 Pulse 89 03/31/24 13:05 Resp 16 03/31/24 11:43 BP 96/66 03/31/24 11:43 Pulse Ox 100 03/31/24 11:43 FiO2 Intake & Output 03/30/24 03/31/24 03/31/24 18:59 06:59 18:59 Intake Total 180 140 120 Balance 180 140 120 Weight 90.4 kg 90.7 kg Intake: IV 20 Invasive Line 2 20 Oral 180 120 120 Other: Voiding Method Toilet Toilet Toilet External Catheter External Catheter # Voids 1 2 1 # Bowel Movements 1 1 - Labs CBC & Chem 7: 03/29/24 09:38 03/30/24 10:38 Labs: Abnormal Lab Results - Last 24 Hours (Table) 03/30/24 Range/Units 19:52 POC Glucose (mg/dL) 133 H (70-110) mg/dL
[2024-03-31 15:32] VITALS: BP 104/67
== END 2024-03-31 15:14 | DRG 682 ==
LOC: EC 18:19 → 6NMEDSUR 22:25 → 3SCARD 03-23 06:55 → OBSVTOIN 03-23 12:47 → 3SCARD 03-23 13:36
PROVIDERS: ADMIT Internal Medicine Geriatric Medicine; ATTEND Internal Medicine Geriatric Medicine
DX: N17.0 Acute kidney failure with tubular necrosis (principal); I50.23 Acute on chronic systolic (congestive) heart failure; I13.2 Hypertensive heart and chronic kidney disease with heart failure and with stage 5 chronic kidney disease, or end stage renal disease; I42.9 Cardiomyopathy, unspecified; L03.115 Cellulitis of right lower limb; L03.116 Cellulitis of left lower limb; M51.04 Intervertebral disc disorders with myelopathy, thoracic region; E11.22 Type 2 diabetes mellitus with diabetic chronic kidney disease; E11.40 Type 2 diabetes mellitus with diabetic neuropathy, unspecified; N18.5 Chronic kidney disease, stage 5; I48.0 Paroxysmal atrial fibrillation; E03.9 Hypothyroidism, unspecified; I08.3 Combined rheumatic disorders of mitral, aortic and tricuspid valves; Z66 Do not resuscitate; K21.9 Gastro-esophageal reflux disease without esophagitis; E78.5 Hyperlipidemia, unspecified; G89.4 Chronic pain syndrome; N28.1 Cyst of kidney, acquired; R03.1 Nonspecific low blood-pressure reading; Z96.653 Presence of artificial knee joint, bilateral; M54.50 Low back pain, unspecified; Z79.890 Hormone replacement therapy; Z79.84 Long term (current) use of oral hypoglycemic drugs; Z79.01 Long term (current) use of anticoagulants; Z79.899 Other long term (current) drug therapy; Z88.1 Allergy status to other antibiotic agents; Z88.5 Allergy status to narcotic agent; Z88.8 Allergy status to other drugs, medicaments and biological substances; Z88.2 Allergy status to sulfonamides; Z91.048 Other nonmedicinal substance allergy status; Z91.018 Allergy to other foods
CPT/HCPCS: 36415; 71045; 80048; 80053; 81001; 83735; 84100; 84484; 85025; 85610; 85730; 93005; 96374; 99285